=== PATIENT | female | born 1950 | race Caucasian/White ===

== ENCOUNTER 2024-05-16 09:46 | Outpatient (CLI) | payer MEDICARE, MEDICAID, SELFPAY ==
[2024-05-16 11:00] LABS: Alanine Aminotransferase 264 U/L (12-78); Albumin Level 3.5 g/dl (3.5-5.0); Albumin/Globulin Ratio 1.3 (1.1-1.8); Alkaline Phosphatase 338 U/L (38-126); Anion Gap 14.1 mEq/L (5-15); Aspartate Amino Transferase 180 U/L (14-36); Bilirubin,Total 0.5 mg/dl (0.2-1.3); Blood Urea Nitrogen 14 mg/dl (7-17); Calcium 9.4 mg/dl (8.4-10.2); Carbon Dioxide 28 mmol/L (22.0-30.0); Chloride 103 mmol/L (98-107); Estimated Glomerular Filt Rate 97 ml/min (>60); GFR (African American) 118 ML/MIN (>60); Globulin 2.6 g/dL (1.3-3.2); Glucose 233 mg/dl (74-100); Potassium 4.1 mmoL/L (3.5-5.1); Sodium 141 mmol/L (136-145); Total Protein,Serum 6.1 g/dl (6.3-8.2)
== END 2024-05-16 23:59 | disposition home or self-care (01) ==
LOC: LAB.DROPOF 09:49
PROVIDERS: PCP Internal Medicine; Visit Provider Family Medicine
DX: E11.9 Type 2 diabetes mellitus without complications (principal)
CPT/HCPCS: 80053

== ENCOUNTER 2024-05-30 08:32 | Outpatient (CLI) | payer MEDICARE, MEDICAID, SELFPAY ==
--- NOTE | 2024-05-30 08:45 | US_ITS ---
FINAL REPORT TECHNIQUE: Sonographic images of the right upper quadrant were obtained. CLINICAL HISTORY: abnormal lab COMPARISON: None FINDINGS: PANCREAS: Unremarkable. LIVER: Homogeneous. No focal hepatic lesion. No intrahepatic biliary ductal dilatation. GALLBLADDER: Multiple gallstones are noted. There is gallbladder wall thickening, measuring 5 mm, and cholecystitis is not excluded.. COMMON DUCT: 3 mm. Normal for age. RIGHT KIDNEY: The right kidney measures 9.75 cm. There is no hydronephrosis, mass, or stone. FREE FLUID: None. IMPRESSION: Multiple gallstones are present in the gallbladder with mild gallbladder wall thickening, and cholecystitis is not excluded. No biliary ductal dilatation is present. Reviewed, Interpreted and Dictated by Jordyn Rogers MD Transcribed by Sandra Calderon Authenticated and [facility]
== END 2024-05-30 23:59 | disposition home or self-care (01) ==
LOC: RAD 08:34
PROVIDERS: PCP Family Medicine; Visit Provider Family Medicine
DX: R89.9 Unspecified abnormal finding in specimens from other organs, systems and tissues (principal); K80.20 Calculus of gallbladder without cholecystitis without obstruction
CPT/HCPCS: 76705

== ENCOUNTER 2024-08-22 15:15 | Outpatient (CLI) | payer MEDICARE, MEDICAID, SELFPAY ==
[2024-08-22 15:46] LABS: Basophils # 0.1 K/mm3 (0-0.2); Basophils % 1.5 % (0.1-2.0); Eosinophils # 0.4 K/mm3 (0.0-0.4); Eosinophils % 5.2 % (0.1-12.0); Hematocrit 39.4 % (37.0-47.0); Hemoglobin 12.7 g/dL (12.2-16.2); Lymphocytes % 12.7 % (10-50); Mean Corpuscular HGB Conc 32.3 g/dL (31.8-35.4); Mean Corpuscular Hemoglobin 31.5 pg (27.0-31.2); Mean Corpuscular Volume 97.5 fl (81-99); Monocytes # 0.5 K/mm3 (0.1-1.0); Monocytes % 5.8 % (1.7-9.3); Neutrophils # 5.7 K/mm3 (1.8-7.8); Neutrophils % 74.8 % (37.0-80.0); Platelet Count 215 K/mm3 (142-424); Red Blood Count 4.04 M/mm3 (4.20-5.40); Red Cell Distribution Width 15.3 % (11.5-17.5); White Blood Count 7.6 K/mm3 (4.8-10.8)
== END 2024-08-22 23:59 | disposition home or self-care (01) ==
LOC: LAB.DROPOF 15:16
PROVIDERS: PCP Family Medicine; Visit Provider Family Medicine
DX: R62.7 Adult failure to thrive (principal); E11.9 Type 2 diabetes mellitus without complications; J44.9 Chronic obstructive pulmonary disease, unspecified
CPT/HCPCS: 85025

== ENCOUNTER 2024-08-26 01:33 | Emergency (ER) | payer MEDICARE, SELFPAY ==
[2024-08-26 01:33] VITALS: BP 149/76; PULSE 68; RESP 18; TEMP 37.3; O2SAT 97; BMI 23.0
[2024-08-26 01:53] LABS: Basophils % 0.6 % (0.1-2.0); Eosinophils # 0.3 K/mm3 (0.0-0.4); Eosinophils % 4.8 % (0.1-12.0); Hematocrit 35.1 % (37.0-47.0); Hemoglobin 11.8 g/dL (12.2-16.2); Lymphocytes # 1.2 K/mm3 (0.7-4.5); Lymphocytes % 18.1 % (10-50); Mean Corpuscular HGB Conc 33.5 g/dL (31.8-35.4); Mean Corpuscular Hemoglobin 31.2 pg (27.0-31.2); Mean Platelet Volume 8.7 fl (7.4-10.4); Monocytes # 0.3 K/mm3 (0.1-1.0); Monocytes % 5.1 % (1.7-9.3); Neutrophils # 4.7 K/mm3 (1.8-7.8); Neutrophils % 71.3 % (37.0-80.0); Platelet Count 189 K/mm3 (142-424); Red Blood Count 3.77 M/mm3 (4.20-5.40); White Blood Count 6.5 K/mm3 (4.8-10.8)
[2024-08-26 02:00] VITALS: PULSE 65; O2SAT 98
[2024-08-26 02:02] LABS: Albumin Level 3.9 g/dl (3.5-5.0); Chloride 103 mmol/L (98-107); Sodium 138 mmol/L (136-145)
[2024-08-26 02:04] LABS: Activated Partial Thrombo Time 25.9 seconds (22.8-30.6); Blood Urea Nitrogen 16 mg/dl (7-17); Creatinine Clearance Estimated 45 mL/min (50-200); Estimated Glomerular Filt Rate 97 ml/min (>60); GFR (African American) 118 ML/MIN (>60); INR 0.97 (0.9-1.1); Prothrombin Time 10.9 seconds (10.1-12.5)
[2024-08-26] MEDS: ACETAMINOPHEN 500MG TAB 1000 MG PO (02:04)
[2024-08-26 02:05] LABS: Alanine Aminotransferase 33 U/L (12-78); Albumin/Globulin Ratio 1.2 (1.1-1.8); Alkaline Phosphatase 111 U/L (38-126); Aspartate Amino Transferase 33 U/L (14-36); Bilirubin,Total 0.5 mg/dl (0.2-1.3); Calcium 9.8 mg/dl (8.4-10.2); Carbon Dioxide 31 mmol/L (22.0-30.0); Globulin 3.2 g/dL (1.3-3.2); Glucose 307 mg/dl (74-100); Total Protein,Serum 7.1 g/dl (6.3-8.2)
[2024-08-26] MEDS: IPRATROPIUM/ALBUTEROL 3 ML NEB IH (02:18)
[2024-08-26 02:19] VITALS: PULSE 68
--- NOTE | 2024-08-26 03:04 | PC.NURSE ---
called report to [facility] nurse and informed them that pt would be transferred back to them
[2024-08-26 03:10] VITALS: BP 124/43; PULSE 66; O2SAT 98
--- NOTE | 2024-08-26 03:15 | HMH.EDGENADL ---
Discharge Plan Disposition Patient Disposition: Xfer [facility] Prescriptions Prescriptions: No Action donepezil 10 mg tablet 10 mg PO HS acetaminophen 325 mg tablet 650 mg PO Q6H PRN (Reason: fever or pain) albuterol sulfate 90 mcg/actuation HFA aerosol inhaler 2 puff inhalation Q4H PRN (Reason: shortness of breath or wheezing) atorvastatin 80 mg tablet 80 mg PO DAILY cholecalciferol (vitamin D3) 50 mcg (2,000 unit) capsule 50 mcg PO DAILY ezetimibe 10 mg tablet 10 mg PO DAILY fluoxetine 40 mg capsule 40 mg PO DAILY nicotine 14 mg/24 hr patch 24 hour 1 patch transdermal Q24H olanzapine 15 mg tablet 15 mg PO HS omeprazole 40 mg capsule,delayed release(DR/EC) 40 mg PO DAILY polyethylene glycol 3350 17 gram/dose powder 17 g PO DAILY ropinirole 0.25 mg tablet 0.25 mg PO BID Tradjenta 5 mg tablet 5 mg PO DAILY Qty: 90 3RF ferrous sulfate 325 mg (65 mg iron) tablet 325 mg PO BID Qty: 180 3RF gabapentin 300 mg capsule 300 mg PO TID Qty: 90 5RF Trelegy Ellipta 100-62.5-25 mcg blister with device 1 inh inhalation DAILY Qty: 60 11RF insulin glargine [Basaglar KwikPen U-100 Insulin] 100 unit/mL (3 mL) insulin pen 45 unit SQ HS insulin aspart U-100 100 unit/mL (3 mL) insulin pen 1 sliding scale dose SQ USEASDIRECTD Qty: 15 2RF Rx Instructions: high intensity SSI TID Tradjenta 5 mg tablet 5 mg PO DAILY Qty: 30 2RF Referrals Follow up/Referrals: Provider,Referral, MD [Primary Care Provider] - See instructions Activity Restrictions/Add. Instructions Additional Instructions/Restrictions: You were evaluated in the ER and are appropriate for discharge at this time. Continue twice daily dressing changes. Nonstick dressing should be used. Moisturizing dressing such as Adaptic can also be used. Follow-up with your oncology team at as scheduled. Return to the ER with new, worsening, or otherwise concerning symptoms. Clinical Impressions Clinical Impression: Hemorrhage of skin lesion Print Language Print Language: Stateless Discharge ED Provider: Souleymane Bhardwaj Adult [facility] General Chief complaint: Eye Problems Stated complaint: skin cancer, bleeding from face Time Seen by Provider: 08/26/24 01:37 Mode of Arrival: Ambulatory Source of Information: Patient Limitations: No Limitations Description of Symptoms (Recalled from ER Triage Doc. by RN): Pt to ED from [facility] with [facility] for bleeding from cancerous area to left eye. pt reports it started bleeding yesterday morning but stopped. [facility] reports it has been bleeding for about an hour and they haven't been able to get it under control. History of Present Illness HPI narrative: 74-year-old female presents from nursing facility with EMS for concerns of bleeding from cancerous lesion on the left side of the face. Patient reports she has been dealing with this lesion for multiple months and has follow-up with . Patient reports she had some bleeding yesterday morning but it stopped, nursing facility reports that it started bleeding again this evening and despite applying a dressing they did not believe the bleeding was under control so patient was sent to the ER for evaluation. Patient states the bleeding has stopped. She is not having new pain at the site. She states her symptoms from the lesion have been stable. She does states she has been having mild headache on and off for weeks that has been controlled with Tylenol. Review of records at including recent MRI demonstrates no evident intracranial invasion from the lesion. Patient has no nausea, vomiting, numbness, tingling, or weakness. Related Data Home Medications ?Medication ?Instructions ?Recorded ?Confirmed acetaminophen 325 mg tablet 650 mg PO Q6H PRN fever or pain 05/09/24 07/19/24 albuterol sulfate 90 mcg/actuation 2 puff inhalation Q4H PRN 05/09/24 07/19/24 aerosol inhaler shortness of breath or wheezing atorvastatin 80 mg tablet 80 mg PO DAILY 05/09/24 07/19/24 cholecalciferol (vitamin D3) 50 50 mcg PO DAILY 05/09/24 07/19/24 mcg (2,000 unit) capsule ezetimibe 10 mg tablet 10 mg PO DAILY 05/09/24 07/19/24 fluoxetine 40 mg capsule 40 mg PO DAILY 05/09/24 07/19/24 nicotine 14 mg/24 hr daily 1 patch transdermal Q24H 05/09/24 07/19/24 transdermal patch olanzapine 15 mg tablet 15 mg PO HS 05/09/24 07/19/24 omeprazole 40 mg capsule,delayed 40 mg PO DAILY 05/09/24 07/19/24 release polyethylene glycol 3350 17 17 g PO DAILY 05/09/24 07/19/24 gram/dose oral powder ropinirole 0.25 mg tablet 0.25 mg PO BID 05/09/24 07/19/24 donepezil 10 mg tablet 10 mg PO HS 06/13/24 07/19/24 insulin glargine 100 unit/mL (3 45 unit SQ HS 08/14/24 mL) subcutaneous pen (Basaglar KwikPen U-100 Insulin) Previous Rx's ?Medication ?Instructions ?Recorded ferrous sulfate 325 mg (65 mg 325 mg PO BID #180 tabs 05/15/24 iron) tablet linagliptin 5 mg tablet (Tradjenta) 5 mg PO DAILY #90 tabs 05/15/24 gabapentin 300 mg capsule 300 mg PO TID #90 caps 05/29/24 fluticasone fur. 100 mcg-umeclid 1 inh inhalation DAILY #60 ea 06/26/24 62.5 mcg-vilant 25 mcg inhalat.powder (Trelegy Ellipta) insulin aspart U-100 100 unit/mL 1 sliding scale dose SQ 08/14/24 (3 mL) subcutaneous pen USEASDIRECTD #15 mL linagliptin 5 mg tablet (Tradjenta) 5 mg PO DAILY #30 tabs 08/22/24 Allergies Allergy/AdvReac Type Severity Reaction Status Date / Time metformin Allergy Unknown Uncoded 06/13/24 11:14 [facility] Disclaimer: The information contained in this section may have been updated after the patient was seen, as this information can be updated by other users. Medical History (Updated 08/26/24 @ 03:15 by Souleymane Bhardwaj MD) Squamous cell carcinoma Diabetes Nicotine dependence Vitamin D deficiency Osteoporosis Restless leg syndrome Hepatitis B Alcohol dependence Depression Anxiety PTSD (post-traumatic stress disorder) Schizophrenia GERD (gastroesophageal reflux disease) COPD (chronic obstructive pulmonary disease) Skin cancer of face Suicidal ideations Acute encephalopathy Surgical History Hx of tubal ligation Social History (Updated 06/13/24 @ 11:17 by JOSELINE Alfaro) Smoking Status: Unknown if ever smoked alcohol intake: former current occupational status: unemployed Travel in the last 8 weeks: None Other Medical History Have you received the Pneumonia Vaccine: Yes ROS Obtained: Yes All systems reviewed & no additional complaints except as documented Positive ROS per HPI Physical Exam General General appearance: alert and in no apparent distress Head Head exam: atraumatic Eye Eye exam: Present other (Large left-sided facial lesion obscures left eye, right eye has normal extraocular movements and round, reactive right pupil) ENT ENT exam: Present mucous membranes moist and other (Normal oropharynx without findings of intraoral lesion or injury. Patient has large fungating mass on the left side of the nose and face obscuring the left eye. No vision out of the left eye. No active bleeding) Neck Neck exam: Present normal inspection and full ROM Chest Chest inspection: Present symmetric chest wall rise Respiratory Respiratory exam: Present wheezes (Mild diffuse wheezing but good air movement, patient does have a history of COPD); Absent respiratory distress or stridor Cardiovascular Cardiovascular exam: Present regular rate and normal rhythm Abdominal Exam Abdominal exam: Present soft; Absent distention or tenderness Extremities Exam Extremities exam: Present full ROM Neurological Exam Neurological exam: Present alert and oriented X3; Absent motor sensory deficit Psychiatric Psychiatric exam: Present normal affect and normal mood Skin Skin exam: Present warm and dry Medical Decision Making Medical Records Medical records reviewed: Yes I reviewed the patient's medical records. Screening: Per USPSTF and CDC recommendations, given the prevalence of disease in our region, it is our hospital?s policy to screen for HIV and viral Hepatitis for all patients aged 18 and over and those with ongoing risk factors. MR Comment: See HPI Syd Inquiry Pt receiving controlled substance: No Vital Signs: 08/26/24 01:33 08/26/24 02:00 08/26/24 02:19 Temperature 99.1 F Temperature Source Oral Pulse Rate 65 68 Pulse Rate [Right Radial] 68 Respiratory Rate 18 Blood Pressure Blood Pressure [Left Arm] 149/76 H Blood Pressure Mean Blood Pressure Mean [Left Arm] 100 Blood Pressure Source [Left Arm] Automatic Cuff Blood Pressure Position [Left Arm] Sitting 02 Sat by Pulse Oximetry 97 98 Oxygen Delivery Method Room Air 08/26/24 03:10 Temperature Temperature Source Pulse Rate 66 Pulse Rate [Right Radial] Respiratory Rate Blood Pressure 124/43 L Blood Pressure [Left Arm] Blood Pressure Mean 81 Blood Pressure Mean [Left Arm] Blood Pressure Source [Left Arm] Blood Pressure Position [Left Arm] 02 Sat by Pulse Oximetry 98 Oxygen Delivery Method Lab Data Lab Results 08/26/24 01:45: WBC 6.5, RBC 3.77 L, Hgb 11.8 L, Hct 35.1 L, MCV 93.0, MCH 31.2, MCHC 33.5, RDW 15.0, Plt Count 189, MPV 8.7, Neut % (Auto) 71.3, Lymph % (Auto) 18.1, Carbon % (Auto) 5.1, Eos % (Auto) 4.8, Baso % (Auto) 0.6, Neut # (Auto) 4.7, Lymph # (Auto) 1.2, Carbon # (Auto) 0.3, Eos # (Auto) 0.3, Baso # (Auto) 0.0, PT 10.9, INR 0.97, APTT 25.9, Sodium 138, Potassium 4.0, Chloride 103, Carbon Dioxide 31 H, Anion Gap 8.0, BUN 16, Creatinine 0.60, Estimated Creat Clear 45, Estimated GFR 97, Est GFR ( Amer) 118, Glucose 307 H, Calcium 9.8, Total Bilirubin 0.5, AST 33, ALT 33, Alkaline Phosphatase 111, Total Protein 7.1, Albumin 3.9, Globulin 3.2, Albumin/Globulin Ratio 1.2 08/26/24 01:45 08/26/24 01:45 Orders (Tests/Meds): ED MEDICATIONS Discontinued Medications Generic Name Dose Route Start Last Admin Trade Name Danoq PRN Reason Stop Dose Admin Acetaminophen 1,000 mg 08/26/24 01:49 08/26/24 02:04 Acetaminophen 500mg Tab PO 08/26/24 01:50 1,000 mg ONCE ONE Administration Albuterol/Ipratropium 3 ml 08/26/24 01:50 08/26/24 02:18 Ipratropium/Albuterol 3 Ml Neb IH 08/26/24 01:51 3 ml ONCE ONE Administration ORDERS Category Date Time Status CBC w/Auto Diff [Complete Blood Count Auto Diff] Stat Lab 08/26/24 01:45 Completed CMP [Comprehensive Metabolic Panel] Stat Lab 08/26/24 01:45 Completed HIV (1&2) Antibody Rapid Stat Lab 08/26/24 01:45 Received Hep C Ab with Reflex to RNA Stat Lab 08/26/24 01:45 Received PT INR [Prothrombin Time INR] Stat Lab 08/26/24 01:45 Completed PTT [Activated Partial Thrombo Time] Stat Lab 08/26/24 01:45 Completed Medical Decision Narrative: In summary, this 74-year-old presents to the emergency department today with concerns of bleeding from left face cancer. On initial evaluation patient is hemodynamically stable, afebrile, patient has fungating mass of the left face that is not actively bleeding. I applied a clean dressing with Adaptic, nonstick gauze, and Tegaderm. Patient has no neurologic deficits though she does states she has mild headache at this time that has previously been controlled by Tylenol which she has not recently received. Differential diagnosis includes but is not limited to coagulopathy, anemia, bleeding from cancerous wound, with headache I did consider possibility of intracranial invasion however recent MRI from did not demonstrate this. Mom also reassured that patient has no neurologic deficit and close follow-up with her oncology team. Based on these concerns, I ordered basic labs to assess blood count and coagulopathy. Patient received Tylenol. Labs reviewed demonstrate no leukocytosis, slight anemia with hemoglobin 11.8, slight decrease from a few days ago but not profound and patient is asymptomatic with no active bleeding. PT/INR and APTT normal, platelets normal at 189, CMP nonactionable. Patient received DuoNeb for wheezing and continues to have no respiratory distress, resting comfortably on room air. On reassessment after applying dressing to wound, patient has had no recurrence of bleeding, she continues to be stable. Her headache is gone. She is appropriate for discharge at this time. She has follow-up with her oncologist at the end of this month including a planned operation which I was able to see in her records. Patient and senior living were given explicit instructions on continued lesion management, follow-up, and return precautions for the ER. Patient indicated understanding and was discharged in stable condition. Critical Care Critical Care Time Critical Care Time: No
[2024-08-26 03:58] VITALS: BP 128/72; PULSE 72; RESP 16; TEMP 36.6; O2SAT 100
[2024-08-26 03:59] LABS: HIV (1&2) Antibody Rapid NONREACTIVE (NONREACTIVE)
[2024-08-28 05:09] LABS: HCV Ab Non Reactive (Non Reactive)
== END 2024-08-26 04:00 ==
PROVIDERS: Emergency Provider Emergency Medicine
DX: R23.3 Spontaneous ecchymoses (principal); R58 Hemorrhage, not elsewhere classified
CPT/HCPCS: 80053; 85025; 85610; 85730; 86803; 87389; 99282; J7620

== ENCOUNTER 2024-08-28 14:10 | Day surgery (SDC) | payer MEDICARE, SELFPAY ==
[2024-08-28] VITALS (9 sets, daily range): BP systolic 110–149; BP diastolic 53–72; PULSE 60–68; RESP 13–20; TEMP 36.6–36.9; O2SAT 97–100; BMI 20.7; BMI 20.9
[2024-08-28] MEDS: SILVER NITRATE APPLICATOR 2 EACH TP (14:22)
--- NOTE | 2024-08-28 14:27 | ED_ITS ---
<Statement entered by Augusto Drummond MD - 08/28/24 14:46> I was consulted by the CORNELIA, and we discussed the complexity of the problems being addressed. I approved the treatment and management plan for this patient's care in the emergency department, thus performing a substantive portion of the medical decision making. Augusto Drummond MD, MARGARET, FACEP Discharge Plan Disposition Patient Disposition: Admitted Condition: Serious Prescriptions Prescriptions: No Action donepezil 10 mg tablet 10 mg PO HS acetaminophen 325 mg tablet 650 mg PO Q6H PRN (Reason: fever or pain) albuterol sulfate 90 mcg/actuation HFA aerosol inhaler 2 puff inhalation Q4H PRN (Reason: shortness of breath or wheezing) atorvastatin 80 mg tablet 80 mg PO DAILY cholecalciferol (vitamin D3) 50 mcg (2,000 unit) capsule 50 mcg PO DAILY ezetimibe 10 mg tablet 10 mg PO DAILY fluoxetine 40 mg capsule 40 mg PO DAILY nicotine 14 mg/24 hr patch 24 hour 1 patch transdermal Q24H olanzapine 15 mg tablet 15 mg PO HS omeprazole 40 mg capsule,delayed release(DR/EC) 40 mg PO DAILY polyethylene glycol 3350 17 gram/dose powder 17 g PO DAILY ropinirole 0.25 mg tablet 0.25 mg PO BID Tradjenta 5 mg tablet 5 mg PO DAILY Qty: 90 3RF ferrous sulfate 325 mg (65 mg iron) tablet 325 mg PO BID Qty: 180 3RF gabapentin 300 mg capsule 300 mg PO TID Qty: 90 5RF Trelegy Ellipta 100-62.5-25 mcg blister with device 1 inh inhalation DAILY Qty: 60 11RF insulin glargine [Basaglar KwikPen U-100 Insulin] 100 unit/mL (3 mL) insulin pen 45 unit SQ HS insulin aspart U-100 100 unit/mL (3 mL) insulin pen 1 sliding scale dose SQ USEASDIRECTD Qty: 15 2RF Rx Instructions: high intensity SSI TID Tradjenta 5 mg tablet 5 mg PO DAILY Qty: 30 2RF Referrals Follow up/Referrals: Provider,Referral, [Primary Care Provider] - See instructions Clinical Impressions Clinical Impression: Esophageal obstruction due to food impaction Instructions Patient Instructions: DI for Skin Abscess Print Language Print Language: Indonesian Discharge ED Provider: Augusto Drummond General Adult HPI General Chief complaint: Skin/Abscess/Foreign Body Stated complaint: WOUND Time Seen by Provider: 08/28/24 14:27 History of Present Illness HPI narrative: Patient presented initially from [facility] for uncontrollable bleeding from a squamous cell carcinoma mass on her face. Patient has a history of squamous cell carcinoma that is metastatic to multiple sites in the body the exact details of which I do not have at the time of my exam. She has been evaluated and is scheduled for surgery at the [facility] at the later end of this month. She began bleeding from the mass this afternoon and they were unable to control it with direct pressure so she was sent to the ER for evaluation. She denies chest pain of cardiac nature fever chills hemoptysis hematochezia melena or hematemesis but does report a bolus sensation and the inability to swallow. She feels like something is stuck. Patient states that this has happened before and they had to go down and get it . She has had this sensation since approximately lunchtime today but did not notify anybody till she arrived here. Related Data Home Medications ?Medication ?Instructions ?Recorded ?Confirmed acetaminophen 325 mg tablet 650 mg PO Q6H PRN fever or pain 05/09/24 07/19/24 albuterol sulfate 90 mcg/actuation 2 puff inhalation Q4H PRN 05/09/24 07/19/24 aerosol inhaler shortness of breath or wheezing atorvastatin 80 mg tablet 80 mg PO DAILY 05/09/24 07/19/24 cholecalciferol (vitamin D3) 50 50 mcg PO DAILY 05/09/24 07/19/24 mcg (2,000 unit) capsule ezetimibe 10 mg tablet 10 mg PO DAILY 05/09/24 07/19/24 fluoxetine 40 mg capsule 40 mg PO DAILY 05/09/24 07/19/24 nicotine 14 mg/24 hr daily 1 patch transdermal Q24H 05/09/24 07/19/24 transdermal patch olanzapine 15 mg tablet 15 mg PO HS 05/09/24 07/19/24 omeprazole 40 mg capsule,delayed 40 mg PO DAILY 05/09/24 07/19/24 release polyethylene glycol 3350 17 17 g PO DAILY 05/09/24 07/19/24 gram/dose oral powder ropinirole 0.25 mg tablet 0.25 mg PO BID 05/09/24 07/19/24 donepezil 10 mg tablet 10 mg PO HS 06/13/24 07/19/24 insulin glargine 100 unit/mL (3 45 unit SQ HS 08/14/24 mL) subcutaneous pen (Basaglar KwikPen U-100 Insulin) Previous Rx's ?Medication ?Instructions ?Recorded ferrous sulfate 325 mg (65 mg 325 mg PO BID #180 tabs 05/15/24 iron) tablet linagliptin 5 mg tablet (Tradjenta) 5 mg PO DAILY #90 tabs 05/15/24 gabapentin 300 mg capsule 300 mg PO TID #90 caps 05/29/24 fluticasone fur. 100 mcg-umeclid 1 inh inhalation DAILY #60 ea 06/26/24 62.5 mcg-vilant 25 mcg inhalat.powder (Trelegy Ellipta) insulin aspart U-100 100 unit/mL 1 sliding scale dose SQ 08/14/24 (3 mL) subcutaneous pen USEASDIRECTD #15 mL linagliptin 5 mg tablet (Tradjenta) 5 mg PO DAILY #30 tabs 08/22/24 Allergies Allergy/AdvReac Type Severity Reaction Status Date / Time metformin Allergy Unknown Uncoded 06/13/24 11:14 [facility] Disclaimer: The information contained in this section may have been updated after the patient was seen, as this information can be updated by other users. Medical History (Updated 08/28/24 @ 14:41 by NATHALY Scales) Squamous cell carcinoma Diabetes Nicotine dependence Vitamin D deficiency Osteoporosis Restless leg syndrome Hepatitis B Alcohol dependence Depression Anxiety PTSD (post-traumatic stress disorder) Schizophrenia GERD (gastroesophageal reflux disease) COPD (chronic obstructive pulmonary disease) Skin cancer of face Suicidal ideations Acute encephalopathy Surgical History Hx of tubal ligation Social History (Updated 06/13/24 @ 11:17 by Makenzie Coffey, SRNA) Smoking Status: Never smoker alcohol intake: former current occupational status: unemployed Travel in the last 8 weeks: None Other Medical History Have you received the Pneumonia Vaccine: Yes ROS Obtained: Yes Systems reviewed as appropriate & no additional complaints except as documented Physical Exam General General appearance: alert and in no apparent distress Respiratory Respiratory exam: Present normal lung sounds bilaterally Cardiovascular Cardiovascular exam: Present regular rate Neurological Exam Neurological exam: Present alert and oriented X3 Medical Decision Making Medical Records Medical records reviewed: Yes I reviewed the patient's medical records. Screening: Per USPSTF and CDC recommendations, given the prevalence of disease in our [place], it is our hospital?s policy to screen for HIV and viral Hepatitis for all patients aged 18 and over and those with ongoing risk factors. Syd Inquiry Pt receiving controlled substance: No Vital Signs: 08/28/24 14:10 Temperature 98.2 F Temperature Source Oral Pulse Rate [Right] 64 Respiratory Rate 20 Blood Pressure [Right Arm] 149/70 H Blood Pressure Mean [Right Arm] 96 Blood Pressure Source [Right Arm] Automatic Cuff 02 Sat by Pulse Oximetry 100 Oxygen Delivery Method Room Air Lab Data Lab results reviewed: Yes I reviewed the patient's lab results. Orders (Tests/Meds): ED MEDICATIONS Discontinued Medications Generic Name Dose Route Start Last Admin Trade Name Freq PRN Reason Stop Dose Admin Silver Nitrate 2 each 08/28/24 14:16 08/28/24 14:22 Silver Nitrate Applicator TP 08/28/24 14:17 2 each ONCE ONE Administration Medical Decision Narrative: In summary patient is a 74-year-old female who presents to the emergency department for evaluation of uncontrolled hemorrhage from a fungating mass to the face and a food bolus sensation. Patient is hemodynamically stable upon arrival, afebrile. Physical exam is remarkable for a very large fungating mass occupying nearly the entirety of the left side of her upper face around the cheek including masslike effect on her pushing her closed but not actually visibly invading the orbit, lateral border is the lateral epicanthal fold, lower border is the nasolabial fold, and upon takedown of dressing applied shows that there is a single bleeding vessel at approximately the 12 o'clock position of the mass. It was easily controlled with light finger pressure however upon removal continues to bleed. Patient also has a bolus sensation but no abdominal tenderness normal breath sounds no epigastric tenderness. Differential diagnosis includes neoplastic hemorrhage versus food bolus versus arterial bleed etc. Initial workup was considered however patient is hemodynamically stable and bleeding was easily controlled with fingertip pressure and patient's vital signs are stable and no red flags for life-threatening hemorrhage, additionally patient was challenged with sips of water which she was intolerant of thus further workup of the food bolus is deferred and lieu of contacting GI. Initial intervention was silver nitrate sticks initially to chemically cauterize and then overlaying with Surgicel for the fungating mass. After hemostatic control was obtained I had interactive discussion with Dr. Rivera of gastroenterology about patient management and he will be taken the patient to the operating room for emergent endoscopy for food impaction. Critical Care Critical Care Time Critical Care Time: No
--- NOTE | 2024-08-28 14:59 | PC.NURSE ---
REPORT GIVEN TO ANTHONY BROUSSARD AND MAY RN
--- NOTE | 2024-08-28 15:07 | EXP.ANES.CKL ---
[facility] Disclaimer: The information contained in this section may have been updated after the patient was seen, as this information can be updated by other users. Medical History Squamous cell carcinoma Diabetes Nicotine dependence Vitamin D deficiency Osteoporosis Restless leg syndrome Hepatitis B Alcohol dependence Depression Anxiety PTSD (post-traumatic stress disorder) Schizophrenia GERD (gastroesophageal reflux disease) COPD (chronic obstructive pulmonary disease) Skin cancer of face Suicidal ideations Acute encephalopathy Surgical History Hx of tubal ligation Social History Smoking Status: Never smoker alcohol intake: former substance use type: denies use current occupational status: unemployed Travel in the last 8 weeks: None [facility] Anesthesia Checklist Patient Identification Patient Identification: Arm Band and Verbal (Name & ) Structural Data Admitted From: Emergency Dept Planned Operative Procedure/s: EGD Consent for Planned Operative Procedure(s) Verified: Yes Verified Documents: Surgical Consent and History and Physical NPO Status Verified Time NPO: 12:00 Additional verifications Anesthesia Reactions: No Airway Assessment Mallampati Score:: Class IV C-Spine Mobility Assessed: Yes TMJ Mobility Assessed: Yes Dentition: Edentulous Neurological Assessment Level of Consciousness: Awake Hx Seizures: No Numbness or tingling in extremities: No Anesthesia Plan Anesthesia Risk discussed: Yes Anesthesia Plan: Verified ASA Class: IV (E) Anesthesia Type: MAC
[2024-08-28 15:09] LABS: Chloride 107 mmol/L (98-107); Sodium 141 mmol/L (136-145)
[2024-08-28 15:12] LABS: Alanine Aminotransferase 26 U/L (12-78); Albumin/Globulin Ratio 1.3 (1.1-1.8); Alkaline Phosphatase 110 U/L (38-126); Aspartate Amino Transferase 31 U/L (14-36); Basophils # 0.1 K/mm3 (0-0.2); Bilirubin,Total 0.4 mg/dl (0.2-1.3); Blood Urea Nitrogen 18 mg/dl (7-17); Calcium 9.5 mg/dl (8.4-10.2); Carbon Dioxide 29 mmol/L (22.0-30.0); Creatinine Clearance Estimated 43 mL/min (50-200); Eosinophils # 0.5 K/mm3 (0.0-0.4); Eosinophils % 6.4 % (0.1-12.0); Estimated Glomerular Filt Rate 97 ml/min (>60); GFR (African American) 118 ML/MIN (>60); Globulin 3.1 g/dL (1.3-3.2); Glucose 99 mg/dl (74-100); Hematocrit 35.4 % (37.0-47.0); Hemoglobin 12.1 g/dL (12.2-16.2); Lymphocytes # 0.9 K/mm3 (0.7-4.5); Lymphocytes % 12.6 % (10-50); Mean Corpuscular HGB Conc 34.2 g/dL (31.8-35.4); Mean Corpuscular Hemoglobin 31.1 pg (27.0-31.2); Mean Corpuscular Volume 90.9 fl (81-99); Mean Platelet Volume 7.9 fl (7.4-10.4); Monocytes # 0.4 K/mm3 (0.1-1.0); Monocytes % 5.2 % (1.7-9.3); Neutrophils # 5.4 K/mm3 (1.8-7.8); Neutrophils % 74.8 % (37.0-80.0); Platelet Count 230 K/mm3 (142-424); Red Cell Distribution Width 15.3 % (11.5-17.5); Total Protein,Serum 7.1 g/dl (6.3-8.2); White Blood Count 7.2 K/mm3 (4.8-10.8)
[2024-08-28 15:18] LABS: INR 0.97 (0.9-1.1); Prothrombin Time 10.9 seconds (10.1-12.5)
[2024-08-28 15:32] LABS: POC Glucose,Bedside 110 (70-110)
--- NOTE | 2024-08-28 15:45 | P.HP_ITS ---
History of Present Illness *Admission Date: 08/28/24 *Reason for visit:: Dysphagia *History of present illness: Mrs. Urban is a 74-year-old female who is here for dysphagia from the ER with food impaction. The examination is deemed medically necessary for EGD. The patient has been seen, interviewed and examined prior to the procedure by both myself and the anesthesia provider. [facility] Disclaimer: The information contained in this section may have been updated after the patient was seen, as this information can be updated by other users. Medical History Squamous cell carcinoma Diabetes Nicotine dependence Vitamin D deficiency Osteoporosis Restless leg syndrome Hepatitis B Alcohol dependence Depression Anxiety PTSD (post-traumatic stress disorder) Schizophrenia GERD (gastroesophageal reflux disease) COPD (chronic obstructive pulmonary disease) Skin cancer of face Suicidal ideations Acute encephalopathy Surgical History Hx of tubal ligation Social History (Updated 08/28/24 @ 15:09 by Brandy Demarco CRNA) Smoking Status: Never smoker alcohol intake: former substance use type: denies use current occupational status: unemployed Travel in the last 8 weeks: None Other Medical History Have you received the Pneumonia Vaccine: Yes Review of Systems Review of Systems Review of systems (narrative): Negative *Cardiovascular Comments: Negative *Gastrointestinal Comments: Negative *Genitourinary Comments: Negative *Musculoskeletal Comments: Negative *Neurologic Comments: Negative Meds Home Medications and Allergies Home Medications ?Medication ?Instructions ?Recorded ?Confirmed ?Type acetaminophen 325 mg tablet 650 mg PO Q6H PRN fever or pain 05/09/24 07/19/24 History albuterol sulfate 90 mcg/actuation 2 puff inhalation Q4H PRN 05/09/24 07/19/24 History aerosol inhaler shortness of breath or wheezing atorvastatin 80 mg tablet 80 mg PO DAILY 05/09/24 07/19/24 History cholecalciferol (vitamin D3) 50 50 mcg PO DAILY 05/09/24 07/19/24 History mcg (2,000 unit) capsule ezetimibe 10 mg tablet 10 mg PO DAILY 05/09/24 07/19/24 History fluoxetine 40 mg capsule 40 mg PO DAILY 05/09/24 07/19/24 History nicotine 14 mg/24 hr daily 1 patch transdermal Q24H 05/09/24 07/19/24 History transdermal patch olanzapine 15 mg tablet 15 mg PO HS 05/09/24 07/19/24 History omeprazole 40 mg capsule,delayed 40 mg PO DAILY 05/09/24 07/19/24 History release polyethylene glycol 3350 17 17 g PO DAILY 05/09/24 07/19/24 History gram/dose oral powder ropinirole 0.25 mg tablet 0.25 mg PO BID 05/09/24 07/19/24 History ferrous sulfate 325 mg (65 mg 325 mg PO BID #180 tabs 05/15/24 07/19/24 Rx iron) tablet linagliptin 5 mg tablet (Tradjenta) 5 mg PO DAILY #90 tabs 05/15/24 07/19/24 Rx gabapentin 300 mg capsule 300 mg PO TID #90 caps 05/29/24 07/19/24 Rx donepezil 10 mg tablet 10 mg PO HS 06/13/24 07/19/24 History fluticasone fur. 100 mcg-umeclid 1 inh inhalation DAILY #60 ea 06/26/24 07/19/24 Rx 62.5 mcg-vilant 25 mcg inhalat.powder (Trelegy Ellipta) insulin aspart U-100 100 unit/mL 1 sliding scale dose SQ 08/14/24 Rx (3 mL) subcutaneous pen USEASDIRECTD #15 mL insulin glargine 100 unit/mL (3 45 unit SQ HS 08/14/24 History mL) subcutaneous pen (Basaglar KwikPen U-100 Insulin) linagliptin 5 mg tablet (Tradjenta) 5 mg PO DAILY #30 tabs 08/22/24 Rx New Prescriptions to Start Prescriptions: Allergies Allergy/AdvReac Type Severity Reaction Status Date / Time metformin Allergy Unknown Uncoded 06/13/24 11:14 Exam Data for Last 24 hours Vital signs and Labs for Last 24 Hours: Temp Pulse Resp BP Pulse Ox O2 Del Method 98.2 F 60 18 140/70 100 Room Air 08/28/24 15:20 08/28/24 15:20 08/28/24 15:20 08/28/24 15:20 08/28/24 14:10 08/28/24 15:20 Laboratory Results - last 24 hr 08/28/24 14:46: WBC 7.2, RBC 3.90 L, Hgb 12.1 L, Hct 35.4 L, MCV 90.9, MCH 31.1, MCHC 34.2, RDW 15.3, Plt Count 230, MPV 7.9, Neut % (Auto) 74.8, Lymph % (Auto) 12.6, [place] % (Auto) 5.2, Eos % (Auto) 6.4, Baso % (Auto) 1.0, Neut # (Auto) 5.4, Lymph # (Auto) 0.9, [place] # (Auto) 0.4, Eos # (Auto) 0.5 H, Baso # (Auto) 0.1, PT 10.9, INR 0.97, Sodium 141, Potassium 4.0, Chloride 107, Carbon Dioxide 29, Anion Gap 9.0, BUN 18 H, Creatinine 0.60, Estimated Creat Clear 43, Estimated GFR 97, Est GFR ( Amer) 118, Glucose 99, Calcium 9.5, Total Bilirubin 0.4, AST 31, ALT 26, Alkaline Phosphatase 110, Total Protein 7.1, Albumin 4.0, Globulin 3.1, Albumin/Globulin Ratio 1.3 08/28/24 15:13: POC Glucose 110 I & O for Last 24 hours: Intake & Output 08/25/24 08/26/24 08/27/24 08/28/24 23:59 23:59 23:59 23:59 Weight 125 lb *Routine HEENT Exam Head: Present normocephalic Eye: Present EOMI and PERRL ENT: Present mucous membranes moist *Routine Neck Exam Neck: Present supple *Routine Respiratory Exam Respiratory: Present CTA bilaterally *Routine Cardiovascular Exam Cardiovascular: Present RRR *Routine Abdominal Exam Abdominal: Present soft and normoactive bowel sounds; Absent tenderness *Routine Rectal Exam Rectal:: deferred *Routine Genitalia Exam Genitalia:: deferred *Routine Extremities Exam Extremities: Absent cyanosis, clubbing or edema *Routine Skin Exam Skin: Present warm; Absent rash *Routine Neurological Exam Neurological: Present alert and oriented X3 Assessment and Plan *Assessment and plan (1) Food impaction of esophagus: Status: Acute Category: Medical Code(s): T18.128A - Food in esophagus causing other injury, initial encounter; [id number].F3XA - Food entering into or through a natural orifice, initial encounter (2) Dysphagia: Status: Acute Category: Medical Code(s): R13.10 - Dysphagia, unspecified Plan A/P: 1. Dysphagia/food impaction is the preprocedural diagnosis. The patient will be anesthetized/sedated using MAC sedation. The patient has been seen and examined. Cardiac and lung assessment prior to the examination is stable. Proceed with planned EGD
--- NOTE | 2024-08-28 15:53 | HMH.PROCNOTE ---
[facility] Procedure Note Date: 08/28/24 Time: 15:53 Procedure Note:: Upper Endoscopy Procedure Report: Esophagogastroduodenoscopy with TTS balloon dilation Endoscopost: Sheldon Rivera II, MD Referring Physician: Jean Marie Modi PA-C Date of Procedure: August 28, 2024 Equipment: Olympus GIF 190 standard upper endoscope Sedation: MAC sedation Indications: Mrs. Urban is a 74-year-old female with oozing and bleeding spontaneously from a squamous cell carcinoma on her face. This is metastatic to multiple sites in the body. She has been evaluated at the [facility]. The patient reports having inability to swallow and a bolus sensation as if something is stuck. The patient had been eating cantaloupe earlier and feels like this may have gotten lodged. The patient has had prior food impaction and had to have an EGD previously to dislodge or remove this. The patient was challenged in the emergency department with sips of water which she was intolerant to. The ER notified me for possible food impaction. The patient has had some dysphagia. She reports no chest pain. Procedure: Prior to the procedure, a history and physical exam was performed, and patient's medications and allergies were reviewed. The risks, benefits and alternatives of the sedation and procedure were discussed with the patient. All questions were answered and informed consent was obtained. The patient was brought to the procedure room. Patient identification and proposed procedure were verified by the physician and the nurse. The patient was placed in a left lateral decubitus position and the scope was passed under direct vision. Throughout the procedure, the patient's blood pressure, pulse, and oxygen saturations were monitored continuously. The upper GI endoscopy was accomplished without difficulty. The patient tolerated the procedure well. Findings: The scope was passed directly into the upper esophagus and advanced to the third portion of the duodenum. The post bulbar duodenum and duodenal bulb were normal with normal mucosa and conniventes. The scope was withdrawn through a normal duodenal bulb and pylorus into the stomach. There was some very mild reactive gastropathy of the antrum. There was some food content in the stomach. The remainder of the antrum, body and fundus of the stomach were grossly normal. Upon retroflexion there was a small 1 to 2 cm hiatal hernia. The scope was then withdrawn into the esophagus. There was a distal esophageal ring. There was no foreign body within the esophagus. There was no evidence of reflux esophagitis or Amaya's. The original diameter of this ring was approximately 13 mm. This was dilated up to 18 mm with a TTS hydrostatic balloon. There was shattering of the distal esophageal ring. The remainder of the esophageal mucosa was normal. Impression: 1. Distal esophageal ring/Schatzki's ring status post dilation to 18 mm (from original diameter 13 mm)?no food impaction encountered 2. Very small sliding 1 to 2 cm hiatal hernia Plan: The patient should have clinical improvement with dilation. I will discuss the findings with the patient and family.
--- NOTE | 2024-08-28 17:47 | SUR.PHASEII ---
Kaela Goel RN called report to Antoinette at [place]
== END 2024-08-28 17:46 | disposition home or self-care (01) ==
LOC: ER 15:07 → SDC 15:12
PROVIDERS: Physician Assistant; Emergency Provider Student in an Organized Health Care Education/Training Program; Visit Provider Internal Medicine Gastroenterology
PROC: 0DJ08ZZ Inspection of Upper Intestinal Tract, Via Natural or Artificial Opening Endoscopic (ICD-10-PCS; CPT 43235; principal; 2024-08-28 14:45)
DX: T18.128A Food in esophagus causing other injury, initial encounter (principal); R13.10 Dysphagia, unspecified; W44.F3XA Food entering into or through a natural orifice, initial encounter; E11.8 Type 2 diabetes mellitus with unspecified complications; Z79.84 Long term (current) use of oral hypoglycemic drugs; Z79.4 Long term (current) use of insulin; K31.9 Disease of stomach and duodenum, unspecified; K44.9 Diaphragmatic hernia without obstruction or gangrene; R58 Hemorrhage, not elsewhere classified
CPT/HCPCS: 43249; 80053; 82962; 85025; 85610; C1726; J0330

== ENCOUNTER 2024-10-22 13:10 | Outpatient (CLI) | payer MEDICARE, SELFPAY ==
--- NOTE | 2024-10-22 | CA_ITS ---
FINAL REPORT CLINICAL HISTORY: bilateral leg pain, COPD, DM, bilateral edema. FINDINGS: Color Doppler, duplex Doppler and compression sonography of the bilateral lower extremities was performed. There is no evidence of deep venous thrombosis from the level of the groin to the calf. The deep veins are patent and compressible. IMPRESSION: No evidence of deep venous thrombosis bilateral lower extremities. Reviewed, Interpreted and Dictated by Ti Miller III, MD Transcribed by Cammy Kidd Authenticated and [facility]
--- NOTE | 2024-10-22 13:19 | US_ITS ---
FINAL REPORT CLINICAL HISTORY: feet mottled and cool, DM, COPD, ex smoker, edema. Left thigh cuff not placed secondary to recent skin grafting on outer thigh < 3 weeks ago. FINDINGS: BILATERAL ANKLE BRACHIAL INDICES Pressure indices are as follows are: RIGHT LOWER EXTREMITY Ankle brachial pressure index: 1.2 Toe brachial pressure index: 0.8 COMMENTS: Normal LEFT LOWER EXTREMITY Ankle brachial pressure index: 1.2 Toe brachial pressure index: 0.8 COMMENTS: Normal IMPRESSION: No evidence of significant obstructive peripheral vascular disease of the lower extremities. Reviewed, Interpreted and Dictated by Ti Miller III, MD Transcribed by Cammy Kidd Authenticated and [facility]
== END 2024-10-22 23:59 | disposition home or self-care (01) ==
LOC: RT 13:11
PROVIDERS: PCP Family Medicine; Visit Provider Nurse Practitioner Family
DX: R60.1 Generalized edema (principal); R09.89 Other specified symptoms and signs involving the circulatory and respiratory systems; L81.9 Disorder of pigmentation, unspecified
CPT/HCPCS: 93923; 93970

== ENCOUNTER 2024-12-07 18:00 | Emergency (ER) | payer MEDICARE, SELFPAY ==
[2024-12-07] VITALS (8 sets, daily range): BP systolic 132–150; BP diastolic 57–98; PULSE 56–62; RESP 19–20; TEMP 36.8–37.3; O2SAT 93–96; BMI 24.0
--- NOTE | 2024-12-07 18:08 | ED_ITS ---
<Statement entered by Christina Aly DO - 12/07/24 23:10> I was consulted by the CORNELIA, and we discussed the complexity of the problems being addressed. I approved the treatment and management plan for this patient's care in the emergency department, thus performing a substantive portion of the medical decision making. Christina Aly DO Discharge Plan Disposition Patient Disposition: Xfer SNF Condition: Good Prescriptions Prescriptions: New nitrofurantoin monohyd/m-cryst 100 mg capsule 100 mg PO BID 5 Days Qty: 10 0RF Rx Instructions: must administer with a meal/food No Action donepezil 10 mg tablet 10 mg PO HS glucagon 1 mg recon soln 1 mg SQ Q20M PRN Rx Instructions: until target blood sugar attained tamsulosin 0.4 mg capsule 0.4 mg PO DAILY insulin aspart U-100 [Novolog FlexPen U-100 Insulin] 100 unit/mL (3 mL) insulin pen 1 sliding scale dose SQ TID dapagliflozin propanediol [Farxiga] 10 mg tablet 10 mg PO DAILY Qty: 90 3RF acetaminophen 325 mg tablet 650 mg PO Q6H PRN (Reason: fever or pain) albuterol sulfate 90 mcg/actuation HFA aerosol inhaler 2 puff inhalation Q4H PRN (Reason: shortness of breath or wheezing) atorvastatin 80 mg tablet 80 mg PO DAILY cholecalciferol (vitamin D3) 50 mcg (2,000 unit) capsule 50 mcg PO DAILY ezetimibe 10 mg tablet 10 mg PO DAILY fluoxetine 40 mg capsule 40 mg PO DAILY olanzapine 15 mg tablet 15 mg PO HS omeprazole 40 mg capsule,delayed release(DR/EC) 40 mg PO DAILY polyethylene glycol 3350 17 gram/dose powder 17 g PO DAILY ropinirole 0.25 mg tablet 0.25 mg PO BID ferrous sulfate 325 mg (65 mg iron) tablet 325 mg PO BID Qty: 180 3RF Trelegy Ellipta 100-62.5-25 mcg blister with device 1 inh inhalation DAILY Qty: 60 11RF Tradjenta 5 mg tablet 5 mg PO DAILY Qty: 30 2RF gabapentin 300 mg capsule 300 mg PO TID Qty: 90 5RF insulin glargine [Basaglar KwikPen U-100 Insulin] 100 unit/mL (3 mL) insulin pen 50 unit SQ HS Referrals Follow up/Referrals: Provider,Referral, MD [Primary Care Provider] - See instructions Activity Restrictions/Add. Instructions Additional Instructions/Restrictions: You may do weightbearing as tolerated. Follow-up with your PCP next week for recheck. I have sent a prescription for your urinary tract infection to your pharmacy. Please take till it is gone. Return to the ER for any worsening signs or symptoms as needed. Clinical Impressions Clinical Impression: Closed sacral fracture Qualifiers: Encounter type: initial encounter Zone of sacrum fracture: unspecified portion of sacrum Qualified Code(s): S32.10XA - Unspecified fracture of sacrum, initial encounter for closed fracture Urinary tract infection Qualifiers: Urinary tract infection type: site unspecified Hematuria presence: with hematuria Qualified Code(s): N39.0 - Urinary tract infection, site not specified Print Language Print Language: Cuban Discharge ED Provider: Christina Aly General Adult HPI General Chief complaint: Fall Stated complaint: Fall, hit head and low back, No LOC Time Seen by Provider: 12/07/24 18:08 History of Present Illness HPI narrative: Patient presents for evaluation of a fall. Patient reportedly had a fall that was witnessed in front of a nurse. Patient reports that she hit her head but did not lose consciousness. She also reports that she landed on her butt and reports that she has buttock pain. She denies any fever chills hemoptysis hematochezia melena nausea vomit diarrhea. 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 Apparently originate on the face involving the left eye that is status post radical resection of her left cheek and exenteration of left eye with flap creation in August 2024. She additionally has a history of alcohol dependence PTSD schizophrenia GERD COPD esophageal obstruction due to previous food impaction diabetes Related Data Home Medications ?Medication ?Instructions ?Recorded ?Confirmed acetaminophen 325 mg tablet 650 mg PO Q6H PRN fever or pain 05/09/24 12/04/24 albuterol sulfate 90 mcg/actuation 2 puff inhalation Q4H PRN 05/09/24 12/04/24 aerosol inhaler shortness of breath or wheezing atorvastatin 80 mg tablet 80 mg PO DAILY 05/09/24 12/04/24 cholecalciferol (vitamin D3) 50 50 mcg PO DAILY 05/09/24 12/04/24 mcg (2,000 unit) capsule ezetimibe 10 mg tablet 10 mg PO DAILY 05/09/24 12/04/24 fluoxetine 40 mg capsule 40 mg PO DAILY 05/09/24 12/04/24 olanzapine 15 mg tablet 15 mg PO HS 05/09/24 12/04/24 omeprazole 40 mg capsule,delayed 40 mg PO DAILY 05/09/24 12/04/24 release polyethylene glycol 3350 17 17 g PO DAILY 05/09/24 12/04/24 gram/dose oral powder ropinirole 0.25 mg tablet 0.25 mg PO BID 05/09/24 12/04/24 donepezil 10 mg tablet 10 mg PO HS 06/13/24 12/04/24 glucagon 1 mg solution for 1 mg SQ Q20M PRN 10/02/24 12/04/24 injection tamsulosin 0.4 mg capsule 0.4 mg PO DAILY 10/02/24 12/04/24 insulin aspart U-100 100 unit/mL 1 sliding scale dose SQ TID 12/04/24 12/04/24 (3 mL) subcutaneous pen (Novolog FlexPen U-100 Insulin aspart) insulin glargine 100 unit/mL (3 50 unit SQ HS 12/04/24 12/04/24 mL) subcutaneous pen (Basaglar KwikPen U-100 Insulin) Previous Rx's ?Medication ?Instructions ?Recorded ferrous sulfate 325 mg (65 mg 325 mg PO BID #180 tabs 05/15/24 iron) tablet fluticasone fur. 100 mcg-umeclid 1 inh inhalation DAILY #60 ea 06/26/24 62.5 mcg-vilant 25 mcg inhalat.powder (Trelegy Ellipta) linagliptin 5 mg tablet (Tradjenta) 5 mg PO DAILY #30 tabs 08/22/24 gabapentin 300 mg capsule 300 mg PO TID #90 caps 11/29/24 dapagliflozin propanediol 10 mg 10 mg PO DAILY #90 tabs 12/04/24 tablet (Farxiga) nitrofurantoin 100 mg PO BID 5 days #10 caps 12/07/24 monohydrate/macrocrystals 100 mg capsule Allergies Allergy/AdvReac Type Severity Reaction Status Date / Time metformin Allergy Unknown Uncoded 06/13/24 11:14 [facility] Disclaimer: The information contained in this section may have been updated after the patient was seen, as this information can be updated by other users. Medical History Facial mass Hemorrhage of skin lesion Esophageal obstruction due to food impaction Food impaction of esophagus Squamous cell carcinoma face, and lung--metastatic Diabetes Nicotine dependence Vitamin D deficiency Osteoporosis Restless leg syndrome Hepatitis B Alcohol dependence Depression Anxiety PTSD (post-traumatic stress disorder) Schizophrenia GERD (gastroesophageal reflux disease) COPD (chronic obstructive pulmonary disease) Skin cancer of face Suicidal ideations Acute encephalopathy Surgical History History of facial surgery radical resection left check and exenteration left eye with flap, Aug 2024 Hx of tubal ligation Social History Smoking Status: Former smoker tobacco type: cigarettes alcohol intake: former substance use type: denies use current occupational status: unemployed Travel in the last 8 weeks: None Have you lived/traveled outside US in past 30 days?: No Contact w/someone who lives/traveled outside US past 30 days?: No Exposure to someone with infectious disease in past 14 days?: No Do you have a fever (greater than 100.4 F or 38 C)?: No Have you tested positive for COVID-19: No Exposed to someone with COVID-19 in past 14 days?: No Do you have a sore throat?: No Do you have a cough?: No Do you have any weakness?: No Do you have any diarrhea?: No Are you experiencing any unusual bleeding?: No Do you have any muscle aches/pain?: No Do you have any abdominal pain?: No Are you experiencing loss of taste or smell?: No Other Medical History Have you received the Pneumonia Vaccine: Yes (03/27/24) ROS Obtained: Yes Systems reviewed as appropriate & no additional complaints except as documented Physical Exam General General appearance: alert and in no apparent distress Respiratory Respiratory exam: Present normal lung sounds bilaterally Cardiovascular Cardiovascular exam: Present regular rate Neurological Exam Neurological exam: Present alert and oriented X3 Medical Decision Making Medical Records Medical records reviewed: Yes I reviewed the patient's medical records. Screening: Per USPSTF and CDC recommendations, given the prevalence of disease in our region, it is our hospital?s policy to screen for HIV and viral Hepatitis for all patients aged 18 and over and those with ongoing risk factors. Syd Inquiry Pt receiving controlled substance: No Vital Signs: 12/07/24 18:05 12/07/24 18:10 12/07/24 18:30 Temperature 99.1 F Temperature Source Oral Pulse Rate 57 L 56 L Pulse Rate [Left Radial] 58 L Respiratory Rate 19 Blood Pressure 140/57 L 150/98 H Blood Pressure [Right Arm] 140/57 L Blood Pressure Mean 108 Blood Pressure Mean [Right Arm] 84 02 Sat by Pulse Oximetry 96 95 96 Oxygen Delivery Method Room Air 12/07/24 19:31 12/07/24 19:45 12/07/24 20:00 Temperature Temperature Source Pulse Rate 62 60 58 L Pulse Rate [Left Radial] Respiratory Rate Blood Pressure Blood Pressure [Right Arm] Blood Pressure Mean Blood Pressure Mean [Right Arm] 02 Sat by Pulse Oximetry 94 L 93 L 93 L Oxygen Delivery Method 12/07/24 21:03 Temperature Temperature Source Pulse Rate Pulse Rate [Left Radial] Respiratory Rate Blood Pressure 139/59 L Blood Pressure [Right Arm] Blood Pressure Mean 111 Blood Pressure Mean [Right Arm] 02 Sat by Pulse Oximetry Oxygen Delivery Method Lab Data Lab results reviewed: Yes I reviewed the patient's lab results. Lab Results 12/07/24 18:37: WBC 3.4 L, RBC 4.26, Hgb 12.7, Hct 39.8, MCV 93.4, MCH 29.8, MCHC 31.9, RDW 14.7, Plt Count 178, MPV 9.9, Neut % (Auto) 66.3, Lymph % (Auto) 21.1, [place] % (Auto) 11.4 H, Eos % (Auto) 1.4, Baso % (Auto) 0.3, Neut # (Auto) 2.3, Lymph # (Auto) 0.7, [place] # (Auto) 0.4, Eos # (Auto) 0.1, Baso # (Auto) 0.0, Sodium 138, Potassium 4.3, Chloride 104, Carbon Dioxide 26, Anion Gap 12.3, BUN 22 H, Creatinine 0.70, Estimated Creat Clear 47, Estimated GFR 81, Est GFR ( Amer) 98, Glucose 185 H, Calcium 8.9, Total Bilirubin 0.4, AST 42 H, ALT 33, Alkaline Phosphatase 143 H, Total Protein 7.2, Albumin 4.0, Globulin 3.2, Albumin/Globulin Ratio 1.3, HCV Ab ABDULAZIZ w/Rflx PCR Qn Negative, HIV Ag/Ab Combo Qual Negative 12/07/24 19:40: SARS-CoV-2 (PCR) Not detected, Influenza A Untype (PCR) Not detected, Influenza Type B (PCR) Not detected 12/07/24 20:14: Urine Color Yellow, Urine Appearance Clear, Urine pH 6.0, Ur Specific [place] 1.015, Urine Protein Negative, Urine Glucose (UA) 2+, Urine Ketones Negative, Urine Blood Negative, Urine Nitrate Negative, Urine Bilirubin Negative, Urine Urobilinogen 0.2, Ur Leukocyte Esterase Negative, Urine RBC 3-5, Urine WBC 20-50, Ur Squamous Epith Cells 3-5, Urine Bacteria 4+ 12/07/24 18:37 12/07/24 18:37 Orders (Tests/Meds): ED MEDICATIONS Generic Name Dose Route Start Last Admin Trade Name Freq PRN Reason Stop Dose Admin Sodium Chloride 10 ml 12/07/24 19:25 12/07/24 19:27 Sodium Chloride 0.9% 10ml Syr (Rad Only) IV 01/06/25 19:24 10 ml NEEDED PRN Administration Maintain IV Site Discontinued Medications Generic Name Dose Route Start Last Admin Trade Name Freq PRN Reason Stop Dose Admin Acetaminophen 1,000 mg 12/07/24 18:19 12/07/24 18:41 Acetaminophen 500mg Tab PO 12/07/24 18:20 1,000 mg ONCE ONE Administration Ceftriaxone Sodium 1 gm/ 50 mls @ 100 mls/hr 12/07/24 21:00 Sodium Chloride IV 12/07/24 21:29 ONCE ONE Iopamidol 80 ml 12/07/24 19:25 12/07/24 19:27 Iopamidol-370 (76%);100ml Bottle IV 12/07/24 19:26 80 ml ONCE ONE Administration Ondansetron HCl 4 mg 12/07/24 18:19 12/07/24 18:41 Ondansetron 4mg/2ml Vial IV 12/07/24 18:20 4 mg ONCE ONE Administration Sodium Chloride 50 ml 12/07/24 19:25 12/07/24 19:27 0.9 % Sodium Chloride 50 Ml Vial IV 12/07/24 19:26 50 ml ONCE ONE Administration ORDERS Category Date Time Status CT angio head Stat Cat Scan 12/07/24 18:[address] angio neck Stat Cat Scan 12/07/24 18:[address] bony pelvis Stat Cat Scan 12/07/24 18:[address] cervical spine wo con Stat Cat Scan 12/07/24 18:[address] head/brain wo con Stat Cat Scan 12/07/24 18:[address] lumbar spine wo con Stat Cat Scan 12/07/24 18:[address] thoracic spine wo con Stat Cat Scan 12/07/24 18:25 Completed CBC w/Auto Diff [Complete Blood Count Auto Diff] Stat Lab 12/07/24 18:37 Completed CMP [Comprehensive Metabolic Panel] Stat Lab 12/07/24 18:37 Completed HIV Combo Stat Lab 12/07/24 18:37 Completed Hepatitis C Ab Qual. W/ RFX Stat Lab 12/07/24 18:37 Completed Rapid PCR Covid and Flu A/B Stat Lab 12/07/24 19:40 Completed UA [Urinalysis and Microscopic] Stat Lab 12/07/24 20:14 Completed Urine Culture Stat Micro 12/07/24 20:14 Received Medical Decision Narrative: In summary patient is a 74-year-old female who presents to the emergency department for evaluation of a fall. Patient is hemodynamically stable with a blood pressure 140/57 heart rate 57 normal sinus rhythm on the bedside monitor breathing 19 times a minute satting at 96% on room air with a temperature of 99.1 upon arrival. Physical exam is remarkable for a well-nourished well- developed 74-year-old female who does not appear to be in acute distress. [place] Coma Score is 15 patient is awake alert and oriented person place and circumstance. I find no contusions abrasions deformities of the head and neck no dorsal spine midline tenderness. Patient moves all 4 extremities she has no focal neurologic deficits with exception of she has no left eye. The right eye round and reactive to light. Patient is neurovascularly intact distally in all 4 extremities. Differential diagnosis includes fall versus occult fracture versus head bleed versus infection etc. Initial workup will be conducted with hematologic labs urinalysis trauma scans. Initial interventions include Tylenol only for now. Initial workup reviewed by me and patient's hematologic labs are nonactionable urinalysis is bland COVID and flu are negative and my informal interpretation of her imaging shows no acute skull fracture or intracranial injury or bleed shows a significant right lung mass which is known and an acute sacral fracture that is nondisplaced prior to radiology read with the remainder of her imaging showing no acute processes prior to radiology read. Given this I had an interactive discussion with [facility] and spoke with Dr. Kaufman regarding orthopedic spine recommendations for her S4 fracture and patient management. They advised weightbearing as tolerated and continued PT OT. Given this patient is appropriate for discharge back to the halfway with weightbearing as tolerated instructions, prescription sent to her pharmacy for Macrodantin and strict return precautions. Critical Care Critical Care Time Critical Care Time: No
--- NOTE | 2024-12-07 18:22 | CT_ITS ---
PROCEDURE INFORMATION: Exam: CT Cervical Spine Without Contrast Exam date and time: 12/07/2024 7:19 PM Age: 74 years old Clinical indication: Injury or trauma; Fall; Blunt trauma; Additional info: Trauma, critical injury suspected TECHNIQUE: Imaging protocol: Computed tomography of the cervical spine without contrast. Radiation optimization: All CT scans at this facility use at least one of these dose optimization techniques: automated exposure control; mA and/or kV adjustment per patient size (includes targeted exams where dose is matched to clinical indication); or iterative reconstruction. COMPARISON: No relevant prior studies available. FINDINGS: Vertebrae: No acute fracture. Normal alignment. Early degenerative disc disease within mid cervical spine. Mild degenerative disc disease within lower cervical spine. Paranasal sinuses: Scattered mucosal thickening of visualized sinuses. 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 Lungs: Spiculated lesion with probable cavitation within RIGHT lung, partially imaged. Vasculature: Atherosclerotic disease of visualized arteries. Soft tissues: Unremarkable. IMPRESSION: 1. No fracture of cervical spine. 2. Pulmonary lesion, indeterminate but concerning for malignancy. Follow up as clinically warranted. 3. See head CT report for additional details.
--- NOTE | 2024-12-07 18:25 | CT_ITS ---
PROCEDURE INFORMATION: Exam: CTA Head With Contrast, Arteriography Exam date and time: 12/07/2024 7:26 PM Age: 74 years old Clinical indication: Injury or trauma; Fall; Blunt trauma; Head; Additional info: Trauma, critical injury suspected TECHNIQUE: Imaging protocol: Computed tomographic angiography of the head with contrast. Exam focused on the arteries. 3D rendering (Not supervised by radiologist): MIP and/or 3D reconstructed images were created by the technologist. Radiation optimization: All CT scans at this facility use at least one of these dose optimization techniques: automated exposure control; mA and/or kV adjustment per patient size (includes targeted exams where dose is matched to clinical indication); or iterative reconstruction. Contrast material: ISOVUE 370; Contrast volume: 80 ml; Contrast route: INTRAVENOUS (IV); COMPARISON: CT HEAD/BRAIN WO CON 12/07/2024 7:12 PM FINDINGS: ANTERIOR CIRCULATION: Right internal carotid artery: The right ICA petrous segment is unremarkable. Cavernous and supraclinoid segments demonstrate minor calcific plaque without stenosis. Right middle cerebral artery: Unremarkable. No occlusion or significant stenosis. No aneurysm. Right anterior cerebral artery: Unremarkable. No occlusion or significant stenosis. No aneurysm. The anterior communicating artery is unremarkable. Left internal carotid artery: The left ICA petrous segment is unremarkable. The cavernous and supraclinoid segments demonstrate mild calcific plaque without stenosis. Left middle cerebral artery: Unremarkable. No occlusion or significant stenosis. No aneurysm. Left anterior cerebral artery: Unremarkable. No occlusion or significant stenosis. No aneurysm. POSTERIOR CIRCULATION: Right vertebral artery: Unremarkable. No occlusion or significant stenosis. No aneurysm. Left vertebral artery: Unremarkable. No occlusion or significant stenosis. No aneurysm. Basilar artery: Unremarkable. No occlusion or significant stenosis. No aneurysm. Right posterior cerebral artery: Moderate-sized right posterior communicating artery present. No occlusion or significant stenosis. No aneurysm. Left posterior cerebral artery: Small left posterior communicating artery present. No occlusion or significant stenosis. No aneurysm. Veins: The dural venous sinuses and major cortical veins enhance appropriately without evidence of thrombosis. Brain: No enhancing brain lesions or vascular malformations are identified. Mild-moderate generalized cerebral/cerebellar atrophy. Mild periventricular bilateral white matter hypodensities which are nonspecific but most commonly associated with chronic microvascular ischemia in this age group. Cerebral ventricles: No ventriculomegaly. Orbital cavities: Prior left ocular enucleation again noted with extensive soft tissue density in the left orbital cavity, including somewhat nodular hyperdense/hyperenhancing elements anteromedially measuring up to 2.2 x 1.1 cm. Correlate clinically for any known history of malignancy, recommend management per treatment protocol, consider PET-CT or biopsy. Mastoid air cells: Partially opacified bilateral mastoid air cells with associated sclerosis suggesting mild chronic mastoiditis. No gross coalescence. Paranasal sinuses: Mucosal thickening in the left maxillary sinus suggesting chronic sinusitis. Bones/joints: Unremarkable. No acute fracture. Soft tissues: Unremarkable. IMPRESSION: 1. No acute vascular abnormalities. No evidence of large vessel occlusion or significant stenosis. No evidence of arterial dissection or aneurysm/pseudoaneurysm. 2. Prior left ocular enucleation again noted with extensive soft tissue density in the left orbital cavity and an enhancing 2.2 x 1.1 cm component at the anteromedial orbit which could represent neoplasm.
--- NOTE | 2024-12-07 18:25 | CT_ITS ---
PROCEDURE INFORMATION: Exam: CTA Neck With Contrast Exam date and time: 12/07/2024 7:26 PM Age: 74 years old Clinical indication: Injury or trauma; Fall; Blunt trauma; Head; Additional info: Trauma, critical injury suspected TECHNIQUE: Imaging protocol: Computed tomographic angiography of the neck with contrast. Exam focused on the cervical segments of the vasculature. 3D rendering (Not supervised by radiologist): MIP and/or 3D reconstructed images were created by the technologist. Radiation optimization: All CT scans at this facility use at least one of these dose optimization techniques: automated exposure control; mA and/or kV adjustment per patient size (includes targeted exams where dose is matched to clinical indication); or iterative reconstruction. Contrast material: ISOVUE 370; Contrast volume: 80 ml; Contrast route: INTRAVENOUS (IV); COMPARISON: CT CERVICAL SPINE WO CON 12/07/2024 7:19 PM FINDINGS: Right common carotid artery: Proximal segment motion limited. No stenosis. No dissection or occlusion. Right internal carotid artery: Mild motion limitation. Mild tortuosity. No stenosis. No dissection or occlusion. Right external carotid artery: Mild ostial calcific plaque. No stenosis. No dissection or occlusion. Left common carotid artery: Variant origin from the brachiocephalic artery. Mild tortuosity. No stenosis. No dissection or occlusion. Left internal carotid artery: Moderate calcific plaque in the left carotid bulb. No stenosis. No dissection or occlusion. Left external carotid artery: Mild ostial/post ostial calcific plaque. No stenosis. No dissection or occlusion. Right vertebral artery: V1 segment evaluation limited due to motion and adjacent streak artifact. Remainder normal. No stenosis. No dissection or occlusion. Left vertebral artery: Mild V1 tortuosity. No stenosis. No dissection or occlusion. Brachiocephalic artery: The brachiocephalic artery demonstrates mild calcific plaque without stenosis. Right subclavian artery: The right subclavian artery assessment is limited by motion and streak artifact. Left subclavian artery: The left subclavian artery assessment is limited by motion and streak artifact. Severe post ostial calcific plaque is present with suspected severe post ostial stenosis of 80%. Correlate clinically for asymmetric brachial pressures. Consider nonemergent carotid Doppler ultrasound to exclude evidence of subclavian steal. Aorta: The visualized aortic arch demonstrates moderate ectasia and calcific plaque without evidence of dissection or gross aneurysm. Thyroid: The thyroid gland is unremarkable. 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 No inflammatory changes to favor abscessed node. Bones/joints: No acute osseous abnormalities are identified. Osteopenia. Mild cervical spondylosis. Lungs: 4 x 3 x 3.5 cm zone of rounded masslike consolidation versus mass in the right upper lobe posterior segment without gross change from recent cervical spine CT. Consider pulmonary referral and consideration for PET-CT or biopsy if not previously assessed. IMPRESSION: 1. No evidence of arterial occlusion, dissection, or aneurysm/pseudoaneurysm. 2. Severe post ostial calcific plaque of the left subclavian artery producing severe 80% post ostial stenosis. Correlate clinically for asymmetric brachial pressures. Consider nonemergent carotid Doppler ultrasound to exclude evidence of subclavian steal. 3. 4 cm rounded masslike consolidation versus pulmonary mass in the right upper lobe posterior segment unchanged from recent prior scan. Consider pulmonary referral and consideration for PET-CT or biopsy if not previously assessed. 4. Enlarged left level 5 cervical node with central cavitation/necrosis, concerning for possible brenden malignancy. REFERENCES: NASCET CRITERIA. The degree of stenosis in the cervical segment of the internal carotid artery is based on NASCET criteria. Normal is no stenosis. Mild is less than 50% stenosis. Moderate is 50-69% stenosis. Severe is 70% to 99% stenosis. Total occlusion is no detectable patent lumen.
--- NOTE | 2024-12-07 18:25 | CT_ITS ---
PROCEDURE INFORMATION: Exam: CT Lumbar Spine Without Contrast Exam date and time: 12/07/2024 7:19 PM Age: 74 years old Clinical indication: Injury or trauma; Fall; Blunt trauma (contusions or hematomas); Additional info: Trauma, critical injury suspected TECHNIQUE: Imaging protocol: Computed tomography of the lumbar spine without contrast. Radiation optimization: All CT scans at this facility use at least one of these dose optimization techniques: automated exposure control; mA and/or kV adjustment per patient size (includes targeted exams where dose is matched to clinical indication); or iterative reconstruction. COMPARISON: CT THORACIC SPINE WO CON 12/07/2024 7:19 PM FINDINGS: Limitations: Examination is limited by respiratory motion. Bones/joints: Osseous demineralization is evident. Transverse sacral fracture at the level of S3/S4 through the anterior and posterior elements appears to be acute. Diaphragm: A small sliding hiatal hernia is present. Gallbladder and biliary ducts: Cholelithiasis is present without findings to favor cholecystitis. No gallbladder wall thickening or pericholecystic fluid collection. Stomach and bowel: Left colon diverticulosis without associated inflammation. Vasculature: Atherosclerosis is evident. Soft tissues: Unremarkable. IMPRESSION: 1. Transverse sacral fracture at the level of S3/S4 through the anterior and posterior elements appears to be acute. 2. No acute lumbar spine fracture.
--- NOTE | 2024-12-07 18:25 | CT_ITS ---
PROCEDURE INFORMATION: Exam: CT Thoracic Spine Without Contrast Exam date and time: 12/07/2024 7:19 PM Age: 74 years old Clinical indication: Injury or trauma; Fall; Blunt trauma (contusions or hematomas); Additional info: Trauma, critical injury suspected TECHNIQUE: Imaging protocol: Computed tomography of the thoracic spine without contrast. Radiation optimization: All CT scans at this facility use at least one of these dose optimization techniques: automated exposure control; mA and/or kV adjustment per patient size (includes targeted exams where dose is matched to clinical indication); or iterative reconstruction. COMPARISON: CT CERVICAL SPINE WO CON 12/07/2024 7:19 PM FINDINGS: Bones/joints: Focal rounded endplate abnormalities likely degeneration or benign Schmorl's node. Thoracic spondylosis is present. Soft tissues: Unremarkable. Vasculature: Significant stenosis of the proximal left subclavian artery suspected. Atherosclerosis is evident. Lungs: Indeterminate partially cavitary consolidation of the right upper lobe adjacent to the major fissure measures 2.8 x 3.4 x 4.0 cm. Differential diagnosis includes malignancy or cavitary pneumonia. Bronchial inflammation is evident. Dependent bilateral lower lobe subsegmental airway occlusions could be related to prominent secretions or possibly small volume aspiration. Coronary arteries: Calcific coronary artery disease is evident. Gallbladder and biliary ducts: Cholelithiasis is present without findings to favor cholecystitis. No gallbladder wall thickening or pericholecystic fluid collection. Other findings: A small sliding hiatal hernia is present. IMPRESSION: 1. Indeterminate partially cavitary consolidation of the right upper lobe adjacent to the major fissure measures 2.8 x 3.4 x 4.0 cm. Differential diagnosis includes malignancy or cavitary pneumonia. PET CT, tissue sampling or three-month follow-up CT chest could be considered to further define. (Reference: Farnaz) 2. Findings of bronchial inflammation/bronchitis. No consolidation. 3. Dependent bilateral lower lobe subsegmental airway occlusions could be related to prominent secretions or possibly small volume aspiration. 4. No acute thoracic spine fracture. 5. Significant stenosis of the proximal left subclavian artery suspected. This raises concern for the possibility of subclavian steal syndrome. Recommend correlation between upper extremity blood pressures. REFERENCES: Farnaz Beasley, et al. Guidelines for Management of Incidental Pulmonary Nodules Detected on CT Images: From the Fleischner Society 2017. Radiology. 2017;284(1):228-243.
--- NOTE | 2024-12-07 18:25 | CT_ITS ---
PROCEDURE INFORMATION: Exam: CT Pelvis Without Contrast, Skeleton Exam date and time: 12/07/2024 7:24 PM Age: 74 years old Clinical indication: Injury or trauma; Fall; Blunt trauma (contusions or hematomas); Does not apply; Pelvic region; Additional info: Trauma, critical injury suspected TECHNIQUE: Imaging protocol: Computed tomography of the pelvis without contrast. Exam focused on the skeleton. Radiation optimization: All CT scans at this facility use at least one of these dose optimization techniques: automated exposure control; mA and/or kV adjustment per patient size (includes targeted exams where dose is matched to clinical indication); or iterative reconstruction. COMPARISON: CT BONY PELVIS 12/07/2024 7:24 PM FINDINGS: Intestine: Left colon diverticulosis without associated inflammation. Appendix: Normal appendix. Vasculature: Atherosclerosis is evident. Bones/joints: Osseous demineralization is evident. Acute mildly oblique S4 fracture with mild posterior angulation of the fractured posterior elements. Soft tissues: Minimal presacral soft tissue contusion. IMPRESSION: Acute mildly oblique S4 fracture with mild posterior angulation of the fractured posterior elements. No other pelvic fracture identified.
[2024-12-07] MEDS: ACETAMINOPHEN 500MG TAB 1000 MG PO (18:41)
[2024-12-07] MEDS: ONDANSETRON 4MG/2ML VIAL 4 MG IV (18:41)
[2024-12-07 18:47] LABS: Eosinophils # 0.1 K/mm3 (0.0-0.4); Eosinophils % 1.4 % (0.1-12.0); Mean Platelet Volume 9.9 fl (7.4-10.4); Monocytes # 0.4 K/mm3 (0.1-1.0); Neutrophils # 2.3 K/mm3 (1.8-7.8)
[2024-12-07 18:48] LABS: Chloride 104 mmol/L (98-107)
[2024-12-07 18:49] LABS: Potassium 4.3 mmoL/L (3.5-5.1); Sodium 138 mmol/L (136-145)
[2024-12-07 18:50] LABS: Basophils % 0.3 % (0.1-2.0); Hematocrit 39.8 % (37.0-47.0); Hemoglobin 12.7 g/dL (12.2-16.2); Lymphocytes # 0.7 K/mm3 (0.7-4.5); Lymphocytes % 21.1 % (10-50); Mean Corpuscular HGB Conc 31.9 g/dL (31.8-35.4); Mean Corpuscular Hemoglobin 29.8 pg (27.0-31.2); Mean Corpuscular Volume 93.4 fl (81-99); Neutrophils % 66.3 % (37.0-80.0); Platelet Count 178 K/mm3 (142-424); Red Blood Count 4.26 M/mm3 (4.20-5.40); Red Cell Distribution Width 14.7 % (11.5-17.5)
[2024-12-07 18:51] LABS: Blood Urea Nitrogen 22 mg/dl (7-17); Creatinine Clearance Estimated 47 mL/min (50-200); Estimated Glomerular Filt Rate 81 ml/min (>60); GFR (African American) 98 ML/MIN (>60)
[2024-12-07 18:52] LABS: Alanine Aminotransferase 33 U/L (12-78); Albumin/Globulin Ratio 1.3 (1.1-1.8); Alkaline Phosphatase 143 U/L (38-126); Anion Gap 12.3 mEq/L (5-15); Aspartate Amino Transferase 42 U/L (14-36); Bilirubin,Total 0.4 mg/dl (0.2-1.3); Calcium 8.9 mg/dl (8.4-10.2); Carbon Dioxide 26 mmol/L (22.0-30.0); Globulin 3.2 g/dL (1.3-3.2); Glucose 185 mg/dl (74-100); Total Protein,Serum 7.2 g/dl (6.3-8.2)
[2024-12-07 18:55] LABS: Monocytes % 11.4 % (1.7-9.3); White Blood Count 3.4 K/mm3 (4.8-10.8)
--- NOTE | 2024-12-07 18:58 | CT_ITS ---
PROCEDURE INFORMATION: Exam: CT Head Without Contrast Exam date and time: 12/07/2024 7:12 PM Age: 74 years old Clinical indication: Injury or trauma; Fall; Blunt trauma (contusions or hematomas); Additional info: Trauma, critical injury suspected TECHNIQUE: Imaging protocol: Computed tomography of the head without contrast. Radiation optimization: All CT scans at this facility use at least one of these dose optimization techniques: automated exposure control; mA and/or kV adjustment per patient size (includes targeted exams where dose is matched to clinical indication); or iterative reconstruction. COMPARISON: No relevant prior studies available. FINDINGS: Brain: Mild atrophy. No intracranial hemorrhage. No mass. No edema. Cerebral ventricles: No hydrocephalus. Paranasal sinuses: Moderate focal mucosal thickening of LEFT maxillary sinus. Scattered minimal mucosal thickening of remaining sinuses. Mastoid air cells: No significant effusion. 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 Heterogeneous soft tissue attenuation within LEFT orbit. Focal soft tissue along inferomedial aspect of LEFT orbit/nasal region. Bones: No acute fracture. Apparent osseous erosion of adjacent floor and medial wall of LEFT orbit/nasal bone by aforementioned soft tissue density. Resection or chronic erosion lateral wall of LEFT orbit. Soft tissues: See above. Vasculature: Atherosclerotic disease of intracranial arteries. IMPRESSION: 1. No intracranial hemorrhage. 2. 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 Focal soft tissue along inferomedial aspect of LEFT orbit/nasal region with apparent osseous erosion of adjacent floor and medial wall of orbit/nasal bone. Recurrent or residual neoplasm not excluded. Compare with prior examinations if available. Clinical correlation and follow up are recommended. THIS REPORT CONTAINS FINDINGS THAT MAY BE CRITICAL TO PATIENT CARE. The findings were verbally communicated by me via telephone conference with Jean Marie Yarbrough at 7:40 PM EST on 12/07/2024. The findings were acknowledged and understood.
--- NOTE | 2024-12-07 19:14 | PC.NURSE ---
Pt in CT scan report received from Vasquez CRUZ
[2024-12-07] MEDS: 0.9 % SODIUM CHLORIDE 50 ML VIAL IV (19:27)
[2024-12-07] MEDS: IOPAMIDOL-370 (76%);100ML BOTTLE 80 ML IV (19:27)
[2024-12-07] MEDS: SODIUM CHLORIDE 0.9% 10ML SYR (RAD ONLY) 10 ML IV (19:27)
[2024-12-07 19:44] LABS: Coronavirus 19, PCR Not Detected (NotDetected); Influenza A, PCR Not Detected (NotDetected); Influenza B, PCR Not Detected (NotDetected)
[2024-12-07 19:49] LABS: HIV Combo NEGATIVE (Negative)
[2024-12-07 19:56] LABS: Hepatitis C Ab Qual. W/ RFX NEGATIVE (Negative)
[2024-12-07 20:18] LABS: Microscopic, Urine URINE MICROSCOPIC (MICROSCOPIC)
[2024-12-07 20:20] LABS: Appearance,Urine CLEAR (Clear); Bilirubin,Urine Negative (Negative); Blood, Urine Negative (Negative); Color,Urine YELLOW (Yellow); Glucose,Urine (UA) 2+ (Negative); Ketones,Urine Negative (Negative); Leukocyte Esterase,Urine Negative (Negative); Nitrate,Urine Negative (Negative); Protein,Urine Negative (Negative); Specific Gravity, Urine 1.015 (1.005-1.030); Urobilinogen,Urine 0.2 EU/dl (0.2)
--- NOTE | 2024-12-07 20:20 | PC.NURSE ---
collected urine and sent to lab
[2024-12-07 20:35] LABS: WBC,Urine 20-50 #/hpf (0-3)
[2024-12-07 20:36] LABS: Bacteria,Urine 4+ /lpf
--- NOTE | 2024-12-07 21:15 | PC.NURSE ---
added a purewick to pt for comfort when voiding.
[2024-12-07] MEDS: CEFTRIAXONE 1 GM 1 GM in 0.9 % SODIUM CHLORIDE 50 ML IV (22:09)
--- NOTE | 2024-12-07 22:26 | PC.NURSE ---
EMS notified of transfer to [place]
--- NOTE | 2024-12-10 08:00 | PC.NURSE ---
prelim urine culture discussed with , no new orders
--- NOTE | 2024-12-13 16:00 | PC.NURSE ---
URINE CULTURE DISCUSSED WITH DR ALONZO, NO NEW ORDERS
== END 2024-12-07 22:58 ==
PROVIDERS: Physician Assistant; Emergency Provider Emergency Medicine; PCP Family Medicine
DX: S32.10XA Unspecified fracture of sacrum, initial encounter for closed fracture (principal); N39.0 Urinary tract infection, site not specified; R31.9 Hematuria, unspecified; R52 Pain, unspecified; W19.XXXA Unspecified fall, initial encounter; Y93.89 Activity, other specified; Y92.129 Unspecified place in nursing home as the place of occurrence of the external cause
CPT/HCPCS: 70450; 70496; 70498; 72125; 72128; 72131; 72192; 80053; 81001; 85025; 86803; 87086; 87088; 87186; 87389; 87636; 96365; 96374; 99285; J0696; J2405; Q9967

== ENCOUNTER 2025-02-11 07:25 | Outpatient (CLI) | payer MEDICARE, MEDICAID, SELFPAY ==
[2025-02-11 08:39] LABS: Hemoglobin A1C 7.1 % (4.0-6.0)
== END 2025-02-11 23:59 | disposition home or self-care (01) ==
PROVIDERS: PCP Family Medicine; Visit Provider Family Medicine
DX: E11.9 Type 2 diabetes mellitus without complications (principal)
CPT/HCPCS: 36415; 83036

== ENCOUNTER 2025-02-13 07:38 | Outpatient (CLI) | payer MEDICARE, MEDICAID, SELFPAY ==
[2025-02-13 09:15] LABS: Glucose,Fasting 33 mg/dl (74-100)
[2025-02-13 09:42] LABS: Hemoglobin A1C 6.8 % (4.0-6.0)
== END 2025-02-13 23:59 | disposition home or self-care (01) ==
LOC: LAB 07:39
PROVIDERS: PCP Nurse Practitioner Family; Visit Provider Nurse Practitioner Family
DX: E11.9 Type 2 diabetes mellitus without complications (principal); Z79.4 Long term (current) use of insulin
CPT/HCPCS: 36415; 82947; 83036

== ENCOUNTER 2025-02-28 10:53 | Outpatient (CLI) | payer MEDICARE, MEDICAID, SELFPAY ==
--- NOTE | 2025-02-28 11:12 | PC.NURSE ---
1112-collected labs via venipuncture stick in right ac with butterfly needle; pt to d/c
[2025-02-28 11:28] LABS: Basophils % 0.1 % (0.1-2.0); Eosinophils # 0.1 K/mm3 (0.0-0.4); Eosinophils % 1.3 % (0.1-12.0); Hematocrit 39.8 % (37.0-47.0); Hemoglobin 13.1 g/dL (12.2-16.2); Lymphocytes # 1.1 K/mm3 (0.7-4.5); Lymphocytes % 15.6 % (10-50); Mean Corpuscular HGB Conc 32.9 g/dL (31.8-35.4); Mean Corpuscular Hemoglobin 31.1 pg (27.0-31.2); Mean Corpuscular Volume 94.5 fl (81-99); Mean Platelet Volume 9.6 fl (7.4-10.4); Monocytes # 0.4 K/mm3 (0.1-1.0); Monocytes % 5.6 % (1.7-9.3); Neutrophils # 5.5 K/mm3 (1.8-7.8); Nucleated Red Blood Cells # 0 10^3/uL; Nucleated Red Blood Cells % 0 %; Platelet Count 189 K/mm3 (142-424); Red Blood Count 4.21 M/mm3 (4.20-5.40); Red Cell Distribution Width 14.7 % (11.5-17.5); Red Cell Distribution Width-SD 51.4 fL; White Blood Count 7.1 K/mm3 (4.8-10.8)
[2025-02-28 11:38] LABS: Chloride 102 mmol/L (98-107); Potassium 4.3 mmoL/L (3.5-5.1); Sodium 139 mmol/L (136-145)
[2025-02-28 11:40] LABS: Alanine Aminotransferase 31 U/L (12-78); Anion Gap 15.3 mEq/L (5-15); Aspartate Amino Transferase 30 U/L (14-36); Blood Urea Nitrogen 16 mg/dl (7-17); Carbon Dioxide 26 mmol/L (22.0-30.0); Estimated Glomerular Filt Rate 97 ml/min (>60); GFR (African American) 118 ML/MIN (>60)
[2025-02-28 11:41] LABS: Albumin/Globulin Ratio 1.2 (1.1-1.8); Alkaline Phosphatase 189 U/L (38-126); Bilirubin,Total 0.5 mg/dl (0.2-1.3); Calcium 9.1 mg/dl (8.4-10.2); Globulin 3.4 g/dL (1.3-3.2); Glucose 273 mg/dl (74-100); Total Protein,Serum 7.4 g/dl (6.3-8.2)
[2025-02-28 11:58] LABS: T4 (Thyroxine) 9.3 ug/dl (5.53-11.0)
[2025-02-28 13:08] LABS: Thyroid Stimulating Hormone 1.64 uIU/mL (0.465-4.68)
== END 2025-02-28 11:20 | disposition home or self-care (01) ==
PROVIDERS: PCP Family Medicine; Visit Provider Internal Medicine Medical Oncology
DX: C78.00 Secondary malignant neoplasm of unspecified lung (principal); C44.321 Squamous cell carcinoma of skin of nose; R74.01 Elevation of levels of liver transaminase levels; Z79.899 Other long term (current) drug therapy
CPT/HCPCS: 36415; 80053; 84436; 84443; 85025

== ENCOUNTER 2025-03-14 11:03 | Outpatient (CLI) | payer MEDICARE, MEDICAID, SELFPAY ==
[2025-03-14] MEDS: SODIUM CHLORIDE 0.9% 50ML BAG 50 ML IV (11:29)
[2025-03-14] MEDS: CEMIPLIMAB-RWLC 350 MG in 0.9 % SODIUM CHLORIDE 100 ML 214 MG IV (11:29)
[2025-03-14 11:38] VITALS: BP 132/74; PULSE 112; RESP 18; O2SAT 96
[2025-03-14 12:20] VITALS: BP 139/65; PULSE 61; RESP 18; O2SAT 96
== END 2025-03-14 12:20 | disposition home or self-care (01) ==
LOC: INF 11:07
PROVIDERS: PCP Family Medicine; Visit Provider Internal Medicine Medical Oncology
DX: C44.321 Squamous cell carcinoma of skin of nose (principal); C78.00 Secondary malignant neoplasm of unspecified lung
CPT/HCPCS: 96413; J9119

== ENCOUNTER 2025-04-04 10:56 | Outpatient (CLI) | payer MEDICARE, MEDICAID, SELFPAY ==
--- OUTSIDE RECORDS SUMMARY | 2025-04-04 10:59 | XMS_ITS | Continuity of Care Document ---
Author Organization [facility] Phone Care Team Providers Care Butter Printer Name Role Phone KAILEY DEE Unavailable KAILEY DEE Admitting KAILEY DEE Primary Attending AMANDA CARTAGENA Primary Care RESULTS Patient: MATEUS PADRON Date of : 1950 1 LABORATORY RESULTS Information is not available LABORATORY NARRATIVE RESULTS Information is not available RADIOLOGY RESULTS ORDER 100: PET W/CT SKULL-DC D THIGH (LOINC: 83533-8) ORDER DATE: February 11, 2025 12:54:00 PM [facility] PERFORMING LAB: [address] [id number] Final Result Date: February 11, 2025 3:03:[address] [address] Name: NEREIDA IGNACIO Exam Date: 02/11/2025 : 1950 Age 74 years Gender: F Physician: KAILEY DEE Facility: [facility] Facility HSV: Outpatient Exam: PET W/CT SKULL-MID THIGH EXAMINATION: SKULL BASE TO MID THIGH F-18 FDG PET/CT CLINICAL INDICATION: Female, 74 years old. TECHNIQUE: Low dose, non-diagnostic quality CT images were acquired from the skull base to the mid thighs for attenuation correction and anatomic localization. This was followed by positron emission tomography (PET) imaging in the same distribution. [id number]. Radiopharmaceutical: 11.76 mCi of F-18 FDG. Recent blood sugar level: 155 mg/dl. Uptake time: 55 minutes. COMPARISON: CTs December 07, 2024 no reports available. FINDINGS: HEAD/NECK: 3.5 cm enlarged left cervical chain lymph node deep to the sternocleidomastoid muscle. This node is hypermetabolic, max SUV 6.7. Skin nodule left aspect of the nose with underlying osseous destructive changes. Hypermetabolic, max SUV 6.7. Absent left globe. CHEST: Pleural-based mass or consolidation in the posterior right upper lobe, hypermetabolic with a max SUV of 10.7. No abnormal hypermetabolic activity in the lungs. No enlarged or hypermetabolic mediastinal/hilar lymph nodes. Coronary atherosclerotic disease. ABDOMEN/PELVIS: Normal physiologic GI and uptake. No abnormal hypermetabolic activity. No acute abnormality on the nonenhanced CT. Cholelithiasis. Aortic and iliac atherosclerotic disease. BONES: Other than the nasal bridge/left periorbital osseous destructive changes which are hypermetabolic, no other abnormal osseous uptake. IMPRESSION: 2.6 cm hypermetabolic nodule left nasal region consistent with history of squamous cell carcinoma. Underlying osseous destructive changes. 3.5 cm hypermetabolic left cervical chain lymph node indicative of metastatic disease. 3.1 cm focal area of increased FDG uptake in the posterior right upper lobe. Differential includes pneumonia versus additional neoplastic process. An area Legally authenticated by KING JUAN 2025-02-11 11:03:29 of consolidation was also noted here on the patient's thoracic CT December 07, 2024. Electronically signed by: Juan Haywood MD 02/12/2025 01:40 PM EDT Dictated By: Juan Haywood Transcribed By: Transcribed On: 02/11/2025 11:03 AM Electronically signed by: Juan Haywood 02/11/2025 Thank you for referring NEREIDA IGNACIO to [facility]. Legally authenticated by KING JUAN 2025-02-11 11:03:29 PATHOLOGY NARRATIVE RESULTS Information is not available MICROBIOLOGY RESULTS No Micro Labs/Results Exist for Patient BLOOD ADMIN RESULTS Information is not available MEDICATIONS HOME MEDICATIONS Status RXNORM NDC Medication Dose Route Frequency Dates Comments Reported By Updated By Drug Treatment Unknown DISCHARGE MEDICATIONS Status RXNORM NDC Medication Dose Route Frequency Dates Comments Physician Updated By No Discharge Medication Info rmation Available INPATIENT MEDICATIONS Status RXNORM NDC Medication Dose Route Frequency Rat e Quantity Dates Comments Physician Updated By No Inpatient Medication Info rmation Available SOCIAL HISTORY SOCIAL HISTORY SNOMED-CT Social History Element Description Effective Dates Offered Cessation Comment UpdatedBy [id number] Smoking Status Unknown If Ever Smoked SOCIAL HISTORY - Gender Sex: Female SOCIAL HISTORY - Status : status i nformation is not available Intention in Next Year: intention information is not available SOCIAL HISTORY - Sexual Behavior Sexual Orientation Gender Identity SNOMED-CT Description SNO MED -CT Description Activity Level No of Partners Partner Type UpdatedBy Information is not available HEALTH CONCERNS Problems Concern Status Health Concern problem infor mation not available. Smoking Status Status Years Used Consumed packs p er day Health Concern smoking histo ry information not available. Family History Concern Status Health Concern family histor y information not available. ENCOUNTERS ENCOUNTER INFORMATION Reason for Visit PET SCAN Admission February 11, 2025 12:48:00 PM [facility] G [address] [address] Discharge February 11, 2025 12:48:00 PM [facility] D ISCHARGED TO HOME OR SELF CARE ENCOUNTER DIAGNOSES Notes information is not maikel ilable. Code System Diagnosis Onset Date Diagnosis information is not available. ABSTRACT DIAGNOSES Code System Diagnosis Updated By C44.92 ICD10 SQUAMOUS CELL CA RCINOMA OF SKIN, UNSPECIFIED [id number] on March 28, 2025 2:44:58 PM [facility] C44.320 ICD10 SQUAMOUS CELL CA RCINOMA OF SKIN OF UNSPECIFIED PARTS OF FACE [id number] on March 28, 2025 2:44:58 PM [facility] R93.89 ICD10 ABNORMAL FINDING S ON DIAGNOSTIC IMAGING OF OTHER SPECIFIED BODY STRUCTURES [id number] on March 28, 2025 2:44:58 PM [facility] R91.8 ICD10 OTHER NONSPECIFI C ABNORMAL FINDING OF LUNG FIELD [id number] on March 28, 2025 2:44:58 PM [facility] CARE TEAM Care Butter Printer Role KAILEY DEE Referring KAILEY DEE Admitting KAILEY DEE Primary Attending AMANDA CARTAGENA Primary Care CARE TEAM 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 Role on Team Status Start Date End Date Update d By SOIEL Holliday PCP normal January 17, 2025 1:37:38 PM [facility] February 11, 2025 12:48:00 PM [facility] [id number] on January 17, 2025 1:37:38 PM [facility] LEILA COTTO Referring normal January 17, 2025 1:37:38 PM UTC February 11, 2025 12:48:00 PM [place] [id number] on January 17, 2025 1:37:38 PM UTC LEILA COTTO Attending normal January 17, 2025 1:37:38 PM UTC February 11, 2025 12:48:00 PM UTC [id number] on January 17, 2025 1:37:38 PM [place] LEILA COTTO Admitting normal January 17, 2025 1:37:38 PM UTC February 11, 2025 12:48:00 PM UTC [id number] on January 17, 2025 1:37:38 PM UTC
[2025-04-04 11:00] VITALS: BMI 24.0
[2025-04-04 11:23] LABS: Basophils % 0.1 % (0.1-2.0); Eosinophils % 0.3 % (0.1-12.0); Hematocrit 44.2 % (37.0-47.0); Immature Granulocytes # 0.03 10^3uL; Immature Granulocytes % 0.4 %; Lymphocytes # 0.7 K/mm3 (0.7-4.5); Lymphocytes % 9.6 % (10-50); Mean Corpuscular HGB Conc 31.7 g/dL (31.8-35.4); Mean Corpuscular Hemoglobin 30.8 pg (27.0-31.2); Mean Corpuscular Volume 97.4 fl (81-99); Mean Platelet Volume 9.2 fl (7.4-10.4); Monocytes # 0.3 K/mm3 (0.1-1.0); Monocytes % 4.8 % (1.7-9.3); Neutrophils # 5.8 K/mm3 (1.8-7.8); Neutrophils % 84.8 % (37.0-80.0); Nucleated Red Blood Cells # 0 10^3/uL; Nucleated Red Blood Cells % 0 %; Platelet Count 226 K/mm3 (142-424); Red Blood Count 4.54 M/mm3 (4.20-5.40); Red Cell Distribution Width 15.8 % (11.5-17.5); Red Cell Distribution Width-SD 56.9 fL; White Blood Count 6.9 K/mm3 (4.8-10.8)
[2025-04-04 11:33] LABS: Alanine Aminotransferase 57 U/L (12-78); Albumin Level 4.2 g/dl (3.5-5.0); Albumin/Globulin Ratio 1.3 (1.1-1.8); Alkaline Phosphatase 236 U/L (38-126); Anion Gap 12.2 mEq/L (5-15); Aspartate Amino Transferase 86 U/L (14-36); Bilirubin,Total 0.7 mg/dl (0.2-1.3); Blood Urea Nitrogen 22 mg/dl (7-17); Calcium 9.6 mg/dl (8.4-10.2); Carbon Dioxide 28 mmol/L (22.0-30.0); Chloride 105 mmol/L (98-107); Creatinine Clearance Estimated 47 mL/min (50-200); Estimated Glomerular Filt Rate 81 ml/min (>60); GFR (African American) 98 ML/MIN (>60); Globulin 3.3 g/dL (1.3-3.2); Glucose 207 mg/dl (74-100); Potassium 4.2 mmoL/L (3.5-5.1); Sodium 141 mmol/L (136-145); Total Protein,Serum 7.5 g/dl (6.3-8.2)
[2025-04-04 12:04] LABS: Thyroid Stimulating Hormone 1.63 uIU/mL (0.465-4.68)
[2025-04-04] MEDS: 0.9 % SODIUM CHLORIDE 50 ML 100 ML IV (12:19)
[2025-04-04] MEDS: CEMIPLIMAB-RWLC 350 MG in 0.9 % SODIUM CHLORIDE 100 ML 214 MG IV (12:20)
[2025-04-04 12:30] VITALS: BP 131/72; PULSE 71; RESP 16; TEMP 35.6; O2SAT 94
[2025-04-04 12:45] VITALS: BP 155/78; PULSE 80; RESP 16
[2025-04-04 13:00] VITALS: BP 133/70; PULSE 73; RESP 16
== END 2025-04-04 13:15 | disposition home or self-care (01) ==
LOC: INF 10:58
PROVIDERS: PCP Family Medicine; Visit Provider Internal Medicine Medical Oncology
DX: C44.321 Squamous cell carcinoma of skin of nose (principal); Z79.899 Other long term (current) drug therapy
CPT/HCPCS: 80053; 84443; 85025; 96413; J9119

== ENCOUNTER 2025-04-25 10:55 | Outpatient (CLI) | payer MEDICARE, MEDICAID, SELFPAY ==
[2025-04-25 10:57] VITALS: BMI 24.0
[2025-04-25 11:20] LABS: Basophils % 0.2 % (0.1-2.0); Eosinophils # 0.1 Kmm3 (0.0-0.4); Eosinophils % 1.7 % (0.1-12.0); Hematocrit 42.7 % (37.0-47.0); Hemoglobin 13.7 g/dL (12.2-16.2); Immature Granulocytes # 0.02 10^3uL; Immature Granulocytes % 0.4 %; Lymphocytes # 0.9 K/mm3 (0.7-4.5); Mean Corpuscular HGB Conc 32.1 g/dL (31.8-35.4); Mean Corpuscular Hemoglobin 31.2 pg (27.0-31.2); Mean Corpuscular Volume 97.3 fl (81-99); Mean Platelet Volume 9.4 fl (7.4-10.4); Monocytes # 0.3 K/mm3 (0.1-1.0); Monocytes % 6.6 % (1.7-9.3); Neutrophils # 3.4 K/mm3 (1.8-7.8); Neutrophils % 72.1 % (37.0-80.0); Nucleated Red Blood Cells # 0 10^3/uL; Nucleated Red Blood Cells % 0 %; Platelet Count 185 K/mm3 (142-424); Red Blood Count 4.39 M/mm3 (4.20-5.40); Red Cell Distribution Width 14.4 % (11.5-17.5); Red Cell Distribution Width-SD 51.3 fL; White Blood Count 4.7 K/mm3 (4.8-10.8)
[2025-04-25 11:29] LABS: Albumin Level 3.8 g/dl (3.5-5.0); Chloride 106 mmol/L (98-107); Potassium 4.4 mmoL/L (3.5-5.1); Sodium 139 mmol/L (136-145)
[2025-04-25 11:31] LABS: Blood Urea Nitrogen 22 mg/dl (7-17); Creatinine Clearance Estimated 47 mL/min (50-200); Estimated Glomerular Filt Rate 81 ml/min (>60); GFR (African American) 98 ML/MIN (>60)
[2025-04-25 11:32] LABS: Alanine Aminotransferase 46 U/L (12-78); Albumin/Globulin Ratio 1.2 (1.1-1.8); Alkaline Phosphatase 164 U/L (38-126); Anion Gap 9.4 mEq/L (5-15); Aspartate Amino Transferase 51 U/L (14-36); Bilirubin,Total 0.3 mg/dl (0.2-1.3); Calcium 10.8 mg/dl (8.4-10.2); Carbon Dioxide 28 mmol/L (22.0-30.0); Globulin 3.3 g/dL (1.3-3.2); Glucose 221 mg/dl (74-100); Total Protein,Serum 7.1 g/dl (6.3-8.2)
[2025-04-25 12:03] LABS: Thyroid Stimulating Hormone 2.68 uIU/mL (0.465-4.68)
[2025-04-25] MEDS: 0.9 % SODIUM CHLORIDE 50 ML 100 ML IV (12:08)
[2025-04-25] MEDS: CEMIPLIMAB-RWLC 350 MG in 0.9 % SODIUM CHLORIDE 100 ML 214 MG IV (12:09)
[2025-04-25 12:15] VITALS: BP 124/54; PULSE 54; RESP 16; TEMP 36; O2SAT 95
[2025-04-25 12:45] VITALS: BP 137/62; PULSE 61; RESP 17
--- OUTSIDE RECORDS SUMMARY | 2025-04-25 13:01 | XMS_ITS | Encounter Summary ---
Author Organization Healthcare Address [address] [place] [address] Care Team Providers Care House Wirer Name Role Phone Guillermo Dior MD Primary Care Provider [phone] Montez Vizcaino MD Unavailable [phone] Marcial Calvin MD Unavailable [phone] Encounter Details Date Type Department Care Team (Late st Contact Info) Description 05/06/2023 Community [facility] [address] [place] [address] Charlotte Navarro, BRINE MAKER [address] [place], [place] [id number] Chronic obstructive pulmonary disease, unspecified COPD type (CMS/HCC) (Primary Dx) Social History Tobacco Use Types Packs/Day Years Used Date Smoking Tobacco: Every Day Cigarettes Smokeless Tobacco: Never Alcohol Use Standard Drinks/Week Comments Not Currently 0 (1 standard drink = 0.6 oz pur e alcohol) Comments No Sex and Gender Information Value Date Recorded Sex Assigned at Not on file Legal Sex Female 8:36 PM EDT Gender Identity Not on file Sexual Orientation Not on file documented as of this encounter Plan of Treatment Not on file documented as of this encounter Visit Diagnoses Diagnosis Chronic obstructive pulmonary disease, unspecified COPD type (CMS/HCC)- Primary documented in this encounter Additional Health Concerns Infection Onset Date Last Indicated Resolved Time COVID-19 Rule-Out 04/20/2024 04/20/2024 04/20/2024 6:19 PM EDT C. difficile Rule-Out 04/21/2024 04/21/20242023 9:11 AM EDT Gastrointestinal Rule-Out 04/21/2024 04/21/2024 9:10 AM EDT ESBL Comment:Urine collected 04/22/2024 resulted positive for ESBL. This patient will require contact precautions indefinitely. Do not resolve this infection. 04/22/2024 04/22/2024 MRSA 05/03/2024 05/03/2024 documented as of this encounter Care Teams House Wirer Relationship Specialty Start Date End Date Guillermo Dior MD [address] [facility] [place] [address] PCP - General 03/27/21 Montez Vizcaino MD [address] [facility] [address] [place] [address] Referring Physician Dermatology 04/19/24 Marcial Calvin MD [address] [place] [phone] Surgeon Otolaryngology 04/19/24 documented as of this encounter
--- OUTSIDE RECORDS SUMMARY | 2025-04-25 13:01 | XMS_ITS | Clinical Summary ---
Author Organization [facility] Address [address] [place] [address] Care Team Providers Care Palliative Senior Np Name Role Phone Guillermo Dior MD Primary Care Provider [phone] Montez Vizcaino MD Unavailable [phone] Marcial Calvin MD Unavailable [phone] Allergies Active Allergy Reactions Criticality Noted Date Comments Empagliflozin Other - please docum ent in the comment field Low 01/04/2024 Metformin Diarrhea Low 02/23/2023 Medications albuterol 108 (90 Base) MCG/ACT inhaler Inhale 2 puffs every 4 (four) hours if needed for shortness of breath. 18 g 1 Active omeprazole (PriLOSEC) [address] capsule Take 1 capsule (40 mg) by mouth 1 (one) time each day. 4 Active donepezil (Aricept) 10 MG tablet Take 1 tablet (10 mg) by mouth every night. 4 Active ezetimibe (Zetia) 10 MG tablet Take 1 tablet (10 mg) by mouth 1 (one) time each day. 4 Active FLUoxetine (PROzac) 40 MG capsule Take 1 capsule (40 mg) by mouth 1 (one) time each day. 4 Active OLANZapine (ZyPREXA) 15 MG tablet Take 1 tablet (15 mg) by mouth every night. 4 Active atorvastatin (Lipitor) 80 MG tablet Take 1 tablet (80 mg) by mouth 1 (one) time each day. Active cholecalciferol (Vitamin D-3) 50 MCG (2000 UT) capsule Take 1 capsule (2,000 Units) by mouth 1 (one) time each day. Active pen needle, diabetic 31G X 5 MM misc Use as directed with insulin pen. 100 each 11 4 Active Insulin Lispro (Admelog, HumaLOG) 100 UNIT/ML injection vial Inject 0.1 mL (10 Units) under the skin 3 (three) times a day with meals. 4 Active Additional Information Patient not taking.Reported on 12/24/2024 polyethylene glycol (Miralax) 17 g packet Take 17 g by mouth 1 (one) time each day. 4 Active Additional Information Patient not taking.Reported on 12/24/2024 rOPINIRole (Requip) 0.25 MG tablet Take 1 tablet (0.25 mg) by mouth 2 (two) times a day. 4 Active gabapentin (Neurontin) 300 MG capsule Take 1 capsule (300 mg) by mouth 3 (three) times a day. 90 capsule 4 Active Trelegy Ellipta 100-62.5-25 MCG/ACT aerosol powder Inhale 1 puff 1 (one) time each day. 4 Active ferrous sulfate 325 (65 Fe) MG EC tablet Take 1 tablet (325 mg) by mouth 2 (two) times a day. Do not crush, chew, or split. Active linaGLIPtin (Tradjenta) 5 MG tablet Take 1 tablet (5 mg) by mouth 1 (one) time each day. Active insulin aspart (NovoLOG) 100 UNIT/ML injection vial Inject under the skin 3 (three) times a day before meals. Sliding scale Active Glucagon, rDNA, (Glucagon Emergency) 1 MG kit Inject 1 mg as directed if needed. Active insulin glargine (Basaglar KwikPen) 100 UNIT/ML injection pen Inject 35 Units under the skin every night. Active dapagliflozin (Farxiga) 5 MG tablet Take 1 tablet (5 mg) by mouth 1 (one) time each day. Active mupirocin (Bactroban) 2 % ointment Apply 1 Application topically 3 (three) times a day if needed. Face Lesions Active acetaminophen (Tylenol) 325 MG tablet Take 2 tablets (650 mg) by mouth every 6 (six) hours. Under [place] law, monthly prescriptions (30 days) can be refilled at 25 days and three-month prescriptions (90 days) at 80 days. Please contact the insurance company with questions if refills are denied. 100 tablet 4 Active white petrolatum (VASELINE) gel Apply 1 Application topically 2 (two) times a day. 4 Active tamsulosin (Flomax) 0.4 MG 24 hr capsule 5 Active insulin glargine-yfgn (Semglee) 100 UNIT/ML injection pen 5 Active nitrofurantoin, macrocrystal-mo nohydrate, (Macrobid) 100 MG capsule 5 Active oseltamivir (Tamiflu) 75 MG capsule 5 Active Tiotropium [place] Monohydrate (Spiriva Respimat) 2.5 MCG/ACT inhaler 0 Active HYDROcodone-kesha taminophen ([place]land) 5-325 MG tablet 5 Active hydrOXYzine HCl (Atarax) 50 MG tablet 0 Active fluticasone-manda meterol (Advair) 115-21 MCG/ACT inhaler 4 Active Fluticasone Furoate-Vilante rol (Breo Ellipta) 200-25 MCG/ACT aerosol powder 0 Active Active Problems Problem Noted Date Diagnosed Date 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 09/16/2024 Squamous cell carcinoma of eye, 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 Essential (primary) hypertension 05/14/2024 Type 2 diabetes mellitus with hyperglycemia 04/15 Generalized weakness 04/22/2024 Acute encephalopathy 04/20/2024 Vitamin D deficiency 04/20/2024 Type 2 diabetes mellitus 04/20/2024 Schizophrenia, unspecified 04/20/2024 Osteoporosis 04/20/2024 HLD (hyperlipidemia) 04/20/2024 History of restless legs syndrome 04/20/2024 Hepatitis B infection 04/20/2024 GERD (gastroesophageal reflux disease) Depression 04/20/2024 Chronic obstructive pulmonary disease, unspecifi ed 04/20/2024 Overview (04/20/2024): Mild Bipolar disorder 04/20/2024 Anxiety 04/20/2024 Alcohol dependence, in remission 04/20/2024 Overview (04/20/2024): History of alcoholism Acute cystitis without hematuria 04/20/2024 Hyperglycemia 04/20/2024 Hypophosphatemia 04/20/2024 Hypokalemia 04/20/2024 Bradycardia 04/20/2024 Skin cancer of face 04/19/2024 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 04/05/20 24 Muscle weakness (generalized) 01/09/2024 History of falling 01/04/2024 Immunizations Immunization Administration Dates Next Due Hep A, Adult 06/19/2018 Influenza, Unspecified 08/14/2018 Influenza, high-dose, quadrivalent 10/30/2021,,07/05/2017 Influenza, injectable, quadr ivalent, preservative free 07/23/2019 Pneumococcal 20-betsy Conj Vaccine 03/27/2024 Pneumococcal Conjugate PCV 13 11/19/2019 Pneumococcal Polysaccharide PPV23 12/19/2012 Family History Medical History Relation Name Comments No Known Problems Father Diabetes Mother Schizophrenia Mother Cervical cancer Sister Anesthesia problems Neg Hx Malig Hyperthermia Neg Hx Relation Name Status Comments Father Mother Sister Social History Tobacco Use Types Packs/Day Years Used Date Smoking Tobacco: Every Day Cigarettes 1 29.9 Started: 09/04/1994 Smokeless Tobacco: Never Tobacco Cessation:Ready to Q uit: Not Asked; Counseling Given: Not Answered Comments:Smokes 7 cigs/daily at facility Alcohol Use Standard Drinks/Week Comments Not Currently 0 (1 standard drink = 0.6 oz pur e alcohol) Humiliation, Afraid, Rape, and Kick questionnair e Answer Date Recorded Within the last year, have y ou been afraid of your partner or ex-partner? No 09/12/2024 Within the last year, have y ou been humiliated or emotionally abused in other ways by your partner or ex-partner? No Within the last year, have y ou been kicked, hit, slapped, or otherwise physically hurt by your partner or ex-partner? No 09/12/2024 Within the last year, have y ou been raped or forced to have any kind of sexual activity by your partner or ex-partner? No 09/12/2024 Hunger Vital Sign Answer Date Recorded Within the past 12 months, y ou worried that your food would run out before you got the money to buy more. Never true 09/12/20 24 Within the past 12 months, t he food you bought just didn't last and you didn't have money to get more. Never true 09/12/2024 PRAPARE - Transportation Answer Date Re corded In the past 12 months, has l ack of transportation kept you from medical appointments or from getting medications? No 08/16 In the past 12 months, has l ack of transportation kept you from meetings, work, or from getting things needed for daily living? No 09/12/2024 Housing Stability Vital Sign Answer Myron e Recorded In the last 12 months, was t here a time when you were not able to pay the mortgage or rent on time? No 09/12/2024 In the last 12 months, how many places have you lived? 1 09/12/2024 In the last 12 months, was t here a time when you did not have a steady place to sleep or slept in a fdc (including now)? No 09/12/2024 Utilities Answer Date Recorded In the past 12 months has th e electric, gas, oil, or water company threatened to shut off services in your home? No 09/12/2024 Comments No Sex and Gender Information Value Date Recorded Sex Assigned at Not on file Legal Sex Female 8:36 PM EDT Gender Identity Not on file Sexual Orientation Not on file Last Filed Vital Signs Vital Sign Reading Time Taken Comments Blood Pressure 106/69 12/25/2024 10:40 AM EST Pulse 55 12/25/2024 10:40 AM EST Temperature 36.7 C (98.1 F) 12/24/2024 10:24 AM EST Respiratory Rate 16 12/25/2024 10:40 AM EST Oxygen Saturation 95% 12/25/2024 10:40 AM EST Inhaled Oxygen Concentration - - Weight 61.7 kg (136 lb) 12/25/2024 10:40 AM EST Height 160 cm (5' 2.99 ) 12/24/2024 10:24 AM EST Body Mass Index 24.1 12/24/2024 10:24 AM EST Plan of Treatment Health Maintenance Due Date Last Done Comments [facility]-Bone Density Scan 1948 [facility]-Depression Screening 1948 [facility]-Hepatitis C Screening 1950 [facility]-Medicare Annual Wellness (AWV) 1950 [facility]-/Child/Adol SDOH Screenings 1948 Diabetes: Dental Exam 1958 [facility]-DTaP,Tdap,and Td Vaccines (1 - Tdap) 1967 [facility]-Zoster Vaccines (1 of 2) 1967 [facility]-Hepatitis A Vaccines (2 of 2 - Risk 2-dose series) 12/20/2018 06/19/2018 [facility]-RSV Vaccine: 60+ Years or (1 - 1-dose 75+ series) 2023 [id number] Vaccine ( season) 2024 10/30/2021, 04/29/2021, 04/08/2021 [facility]-Diabetes: Hemoglobin A1C 07/21/2024 04/21/2024, 08/05/2018 [facility]- SDOH Screenings 03/13/2025 [facility]-Adult SDOH Screenings 03/13/2025 09/12/2024 [facility]-Influenza Vaccine (Season Ended) 2025 10/30/2021, 09/26/2020, 07/23/2019, Additional history exists [facility]-Breast Cancer Screening Discontinued 03/17/2021, 01/27/2021, 01/27/2021 [facility]-Pneumococcal Vaccine: 50+ Years Completed 03/27/2024, 11/19/2019, 12/19/2012 [facility]-Lung Cancer Screening Discontinued 12/24/2024, HPV Vaccines Aged Out No longer eligi ble based on patient's age to complete this topic [facility]-HIB Vaccines Aged Out No longer e ligible based on patient's age to complete this topic [facility]-IPV Vaccines Aged Out No longer e ligible based on patient's age to complete this topic [facility]-Rotavirus Vaccines Aged Out No lo nger eligible based on patient's age to complete this topic Procedures Procedure Name Priority Date/Time Associated Diagnosis Comments CT CHEST W IV CONTRAST Routine 12/24/2024 9:44 AM EST Squamous cell carcinoma of eye, right (CMS/HCC) HEMOGLOBIN A1C Add-On 04/21/2024 3:16 AM EDT from Last 3 Months or Most Recently Relevant to Health Maintenance Results * CT Chest w IV Contrast (12/24/2024 9:44 AM EST) Anatomical Region Laterality Modality Chest Computed Tomogra phy Impressions 12/24/2024 10:46 AM EST A right upper lobe masslike consolidation with central cavitation in the area of previously seen hypermetabolic pulmonary nodule is likely posttreatment change. Possible residual viable disease cannot be assessed on this exam. No new suspicious nodules. CRITICAL RESULT: No. COMMUNICATION: Per this written report. Drafted by Jackelyn Mcgarry MD on 12/24/2024 10:20 AM Final report signed by Jackelyn Mcgarry MD on 12/24/2024 10:46 AM Narrative 12/24/2024 10:46 AM EST CLINICAL INDICATION: Non-small cell lung cancer (NSCLC), metastatic, assess treatment response TECHNIQUE: Imaging of the chest was performed, from thoracic inlet through upper abdomen, using spiral technique, following administration of IV contrast, Omnipaque 300, 100 mL according to the [address] Chest protocol. Total DLP (Dose-Length Product): 85.94 mGy.cm. Please note: The reported value represents the total of one or more individual components during the CT acquisition on this date and at this time, and as such, the same value may appear in more than one CT report depending on the interpreting/reporting physicians. COMPARISON: PET/CT from 07/23/2024 FINDINGS: Chest: Aorta/Vessels: The thoracic aorta and coronary arteries are diffusely atherosclerotic. No large central filling defect within the pulmonary arteries to suggest pulmonary embolism. Pleural/Pericardial Space: No pneumothorax. No pleural effusions. No pericardial effusion. Lymph Nodes: No lymphadenopathy within the chest. Lungs: Debris in the trachea and bilateral bronchi is concerning for aspiration. A masslike consolidation in the right upper lobe periphery of the central cavitation in the area of previously seen hypermetabolic pulmonary nodule is probably a posttreatment change. Possible residual viable disease cannot be assessed on this exam. No new suspicious nodules. A punctate left apical nodule is stable (series 2 image 12). Mediastinum: Focal soft tissue wall thickening of the mid trachea on the right (series 2 image 26) is a new finding Chest Wall: No chest wall hematoma or contusion. Bones: No acute fracture within the chest. Upper Abdomen: Multiple gallstones. Hepatic surface nodularity consistent with cirrhosis. Procedure Note Jackelyn Mcgarry MD - 12/24/2024 CLINICAL INDICATION: Non-small cell lung cancer (NSCLC), metastatic, assess treatmentresponse TECHNIQUE: Imaging of the chest was performed, from thoracic inlet through upperabdomen, using spiral technique, following administration of IV contrast,Omnipaque 300, [address] mL [address] Chest protocol. Total DLP (Dose-Length Product): 85.94 mGy.cm. Please note: The reportedvalue represents the total of one or more individual components during theCT acquisition on this date and at this time, and as such, the same valuemay appear in more than one CT report depending on theinterpreting/reporting physicians. COMPARISON: PET/CT from 07/23/2024 FINDINGS: Chest: Aorta/Vessels: The thoracic aorta and coronary arteries are diffuselyatherosclerotic. No large central filling defect within the pulmonaryarteries to suggest pulmonary embolism. Pleural/Pericardial Space: No pneumothorax. No pleural effusions. Nopericardial effusion. Lymph Nodes: No lymphadenopathy within the chest. Lungs: Debris in the trachea and bilateral bronchi is concerning foraspiration. A masslike consolidation in the right upper lobe periphery ofthe central cavitation in the area of previously seen hypermetabolicpulmonary nodule is probably a posttreatment change. Possible residualviable disease cannot be assessed on this exam. No new suspicious nodules.A punctate left apical nodule is stable (series 2 image 12). Mediastinum: Focal soft tissue wall thickening of the mid trachea on theright (series 2 image 26) is a new finding Chest Wall: No chest wall hematoma or contusion. Bones: No acute fracture within the chest. Upper Abdomen: Multiple gallstones. Hepatic surface nodularity consistentwith cirrhosis. IMPRESSION: A right upper lobe masslike consolidation with central cavitation in thearea of previously seen hypermetabolic pulmonary nodule is likelyposttreatment change. Possible residual viable disease cannot be assessedon this exam. No new suspicious nodules. CRITICAL RESULT: No. COMMUNICATION: Per this written report. Drafted by Jackelyn Mcgarry MD on 12/24/2024 10:20 AM Final report signed by Jackelyn Mcgarry MD on 12/24/2024 10:46 AM Lyndsey Lopez UNDERGROUND MINING SECTION FOREMAN, DNP IMG CT PROCEDURES Final Result * (ABNORMAL) Hemoglobin A1c (04/21/2024 3:16 AM EDT) Hemoglobin A1c 10.5(H) <5.7 % 04/21/2024 12:02 PM EDT [facility] Blood Venous blood specimen / Unknown Venipuncture / Unknown 04/21/2024 3:16 AM EDT 04/21/2024 3:40 AM EDT Narrative [facility] - 04/21/2024 12:02 PM EDT HA1C Interpretive Data: Diagnosis of Diabetes: Diabetic > or = 6.5% Pre-diabetic 5.7 to 6.4% Non-diabetic < or = 5.6% Glycemic Targets for Type I and Type II Diabetics: Non- Adults <7.0% Adults <6.0% Children and Adolescents <7.5% Source: [place] [employer]. Standards of medical care in diabetes,2017. Diabetes Care.2017:40 (suppl 1):S1-S135. HbA1c assay performed by an ion-exchange chromatography method that is certified traceable to the DCCT. Celestina Dumas DO LAB BLOOD ORDERABLES Fin al Result [facility] [address] [place] [address] from Last 3 Months or Most Recently Relevant to Health Maintenance Additional Health Concerns Infection Onset Date Last Indicated ESBL Comment:Urine collected 04/22/2024 resulted positive for ESBL. This patient will require contact precautions indefinitely. Do not resolve this infection. 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 Yes * Full Code Date Activated Date Inactivated Comments 04/21/2024 5:08 PM 05/09/2024 3:49 PM Question Answer Comments Patient has decision-making capacity? Yes Care Teams Palliative Senior Np Relationship Specialty Start Date End Date Guillermo Dior MD [address] [place] [address] PCP - General 03/27/21 Montez Vizcaino MD [address] [address] Referring Physician Dermatology 04/19/24 Marcial Calvin MD [address] [place] [phone] Surgeon Otolaryngology 04/19/24
--- OUTSIDE RECORDS SUMMARY | 2025-04-25 13:01 | XMS_ITS | Encounter Summary ---
Author Organization Healthcare Address [address] [place] [address] Care Team Providers Care Nuts And Bolts Assembler Name Role Phone Guillermo Dior MD Primary Care Provider [phone] Montez Vizcaino MD Unavailable [phone] Marcial Calvin MD Unavailable [phone] Reason for Referral * Consultation (Routine) - Closed Specialty Diagnoses / Procedures Referred By Sharita spencer Referred To Contact Plastic Surgery Diagnoses Basal cell carcinoma (BCC), unspecified site Ashlyn Donahue APRN [address] [place] [address] Phone: tel: fax: Referral ID Status Reason Start Date Expiration Date V isits Requested Visits Authorized [id number] Closed Specialty Services Required 03/29/2024 09/28/2025 1 1 Encounter Details Date Type Department Care Team (Late st Contact Info) Description 03/29/2024 Community [facility] [address] [place] [address] Ashlyn Donahue APRN [address] [place] [address] Basal cell carcinoma (BCC), unspecified site (Primary Dx) Social History Tobacco Use Types [...] as of this encounter Plan of Treatment Scheduled Referrals Name Type Priority Associated Diagnoses Orde r Schedule Ambulatory Referral to Plastic Surgery Outpatient Referral Routine Basal cell carcinoma (BCC), unspecified site Expected: 03/29/2024 (Approximate), Expires: 03/29/2025 documented as of this encounter Visit Diagnoses Diagnosis Basal cell carcinoma (BCC), unspecified site- Primary documented in this encounter Additional Health [...] documented as of this encounter Care Teams Nuts And Bolts Assembler Relationship Specialty Start Date End Date Guillermo Dior MD [address] [facility] [place] [address] PCP - General 03/27/21 Montez Vizcaino MD [address] [facility] [address] [place] [address] Referring Physician Dermatology 04/19/24 Marcial Calvin MD [address] [place] [phone] Surgeon Otolaryngology 04/19/24 documented as of this encounter
--- OUTSIDE RECORDS SUMMARY | 2025-04-25 13:01 | XMS_ITS ---
Author Organization [facility] Address [address] [place] [address] Care Team Providers Care Car Body Inspector Name Role Phone Guillermo Dior MD Primary Care Provider [phone] Montez Vizcaino MD Unavailable [phone] Marcial Calvin MD Unavailable [phone] Active Problems Problem Noted Date Diagnosed Date [...] weakness (generalized) 01/09/2024 History of falling 01/04/2024 Current Treatment and Therapy Plans No current plan information found. Past Treatment and Therapy Plans No past plan information found. Past Radiation Episodes * SBRT: Right LungOverview* First Treatment Date Last Treatment Date Treatment Site Technique Goal Episode Provider 09/20/2024 09/26/2024 Right Lung SBRT Control Treatment Courses* Course C1 09/20/2024 - 09/26/2024 Treatment Period Fraction Dose Fractions Total Dose Plans Planned [id number] 09/20/2024 - 09/26/2024 400 cGy 5 / 5 2 ,000 cGy Reference Points Delivered Right Lung 09/20/2024 - 09/26/2024 2,000 cGy Lifetime Dose Tracking * Chemical Lifetime Dose Automatic Entry Manual Entr y Radiation (DLP) Retired 940 mGy-cm. 940 mGy-cm. 0 mG y-cm. CTDIvol 128 mGy 128 mGy 0 mGy
--- OUTSIDE RECORDS SUMMARY | 2025-04-25 13:02 | XMS_ITS | Clinical Summary ---
Author Organization [facility] Address [address] [place] [address] Phone Care Team Providers Care Deputy Sheriff Generalist Name Role Phone Unavailable Primary Care Provider Unavailabl e Allergies No known active allergies Medications * This document contains information received from the source organization and may not represent a complete record from that organization. OLANZapine (ZYPREXA) 15 mg Oral TabletIndicati ons:schizophre avelino Take 15 mg by mouth nightly. Indications: schizophrenia Active donepeziL (ARICEPT) 10 mg Oral Tablet Take 10 mg by mouth nightly. Active FLUoxetine (PROZAC) 40 mg Oral CapsuleIndicat ions:anxiety with depression Take 40 mg by mouth daily. 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 Social History Tobacco Use Types Packs/Day Years Used Date Smoking Tobacco: Never Assessed Alcohol Use Standard Drinks/Week Comments Not Currently 0 (1 standard drink = 0.6 oz pur e alcohol) Comments Unknown Sex and Gender Information Value Date Recorded Sex Assigned at Not on file Legal Sex Female 8:53 AM EDT Gender Identity Not on file Sexual Orientation Not on file Obstetrics History Plan of Treatment Health Maintenance Due Date Last Done Comments Wellness Exam Medicare 1953 Hepatitis C Screening 1966 DTaP/TDaP/Td (1 - Tdap) 1967 Pneumococcal Vaccine 50+ (1 of 1 - PCV) 1998 Zoster (1 of 2) 1998 Bone Density Screening 2013 RSV or 60+ (1 - 1-d ose 75+ series) 2023 COVID-19 Vaccine ( - 2023-2 5 season) 2024 Influenza Vaccine (Season Ended) 2025 Hepatitis B Vaccine Aged Out No longe r eligible based on patient's age to complete this topic Meningococcal B Vaccine Aged Out No l onger eligible based on patient's age to complete this topic Insurance MEDICAID [facility] DUAL ACCESS O D-SNP [place] [address]
== END 2025-04-25 13:00 | disposition home or self-care (01) ==
LOC: INF 10:56
PROVIDERS: PCP Family Medicine; Visit Provider Internal Medicine Medical Oncology
DX: C44.321 Squamous cell carcinoma of skin of nose (principal); Z79.899 Other long term (current) drug therapy
CPT/HCPCS: 80053; 84443; 85025; 96413; J9119

== ENCOUNTER 2025-05-16 09:23 | Outpatient (CLI) | payer MEDICARE, MEDICAID, SELFPAY ==
--- OUTSIDE RECORDS SUMMARY | 2025-05-16 09:27 | XMS_ITS | Encounter Summary ---
Author Organization Healthcare Address [address] [place] [address] Care Team Providers Care Director Private Name Role Phone Guillermo Dior MD Primary Care Provider [phone] Montez Vizcaino MD Unavailable [phone] Marcial Calvin MD Unavailable [phone] Encounter Details Date Type Department Care Team (Late st Contact Info) Description 05/06/2023 Community [facility] Community Practice [address] [place] [address] Charlotte Navarro, OUTSOLE COMPRESSOR [address] [place], [place] [id number] Chronic obstructive pulmonary disease, unspecified COPD type [...] documented as of this encounter Care Teams Director Private Relationship Specialty Start Date End Date Guillermo Dior MD [address] [place] [address] PCP - General 03/27/21 Montez Vizcaino MD [address] [facility] [address] [place] [address] Referring Physician Dermatology 04/19/24 Marcial Calvin MD [address] [place] [phone] Surgeon Otolaryngology 04/19/24 documented as of this encounter
--- OUTSIDE RECORDS SUMMARY | 2025-05-16 09:27 | XMS_ITS | Encounter Summary ---
Author Organization Healthcare Address [address] [place] [address] Care Team Providers Care Lead Portfolio Manager Name Role Phone Guillermo Dior MD Primary Care Provider [phone] Montez Vizcaino MD Unavailable [phone] Marcial Calvin MD Unavailable [phone] Reason for Referral * Consultation (Routine) - Closed Specialty Diagnoses / Procedures Referred By Sharita spencer Referred To Contact Plastic Surgery Diagnoses Basal cell carcinoma (BCC), unspecified site Ashlyn Donahue APRN [address] [place] [address] Phone: tel: fax: Referral ID Status Reason Start Date Expiration Date V isits Requested Visits Authorized [id number] Closed Specialty Services Required 03/29/2024 09/28/2025 1 1 Encounter Details Date Type Department Care Team (Late st Contact Info) Description 03/29/2024 Community [facility] Community Practice [address] [place] [address] Ashlyn Donahue APRN [address] [place] [address] Basal cell carcinoma (BCC), unspecified site (Primary [...] documented as of this encounter Care Teams Lead Portfolio Manager Relationship Specialty Start Date End Date Guillermo Dior MD 6 [facility] [place] [address] PCP - General 03/27/21 Montez Vizcaino MD 989 [facility] [address] [place] [address] Referring Physician Dermatology 04/19/24 Marcial Calvin MD [address] [place] [phone] Surgeon Otolaryngology 04/19/24 documented as of this encounter
[2025-05-16 09:28] VITALS: BMI 24.0
--- OUTSIDE RECORDS SUMMARY | 2025-05-16 09:28 | XMS_ITS | Clinical Summary ---
Author Organization [facility] Address [address] [place] [address] Care Team Providers Care Livestock Farmer Name Role Phone Guillermo Dior MD Primary Care Provider [phone] Montez Vizcaino MD Unavailable [phone] Marcial Calvin MD Unavailable [phone] Allergies Active Allergy Reactions Criticality Noted [...] by mouth every 6 (six) hours. Under [place] law, monthly prescriptions (30 days) can be [...] (Tamiflu) 75 MG capsule 5 Active Tiotropium [place] Monohydrate (Spiriva Respimat) 2.5 MCG/ACT inhaler 0 Active HYDROcodone-kesha taminophen ([place]) 5-325 MG tablet 5 Active hydrOXYzine HCl [...] place to sleep or slept in a long term (including now)? No 09/12/2024 Utilities Answer Date [...] Screening 1950 [facility]-Medicare Annual Wellness (AWV) 1948 [facility]-Infant/Child/Adol SDOH Screenings 1948 Diabetes: Dental Exam 1958 [facility]-DTaP,Tdap,and Td Vaccines (1 - Tdap) 1967 [facility]-Zoster Vaccines (1 of 2) 1967 [facility]-Hepatitis A Vaccines (2 of 2 - Risk 2-dose series) 12/20/2018 06/19/2018 [facility]-RSV Vaccine: 60+ Years or (1 - 1-dose 75+ series) 2023 [id number] Vaccine ( - season) 2024 10/30/2021, 04/29/2021, 04/08/2021 [facility]-Diabetes: Hemoglobin A1C 07/21/2024 04/21/2024, 08/05/2018 [facility]- SDOH Screenings 03/13/2025 [facility]-Adult SDOH Screenings 03/13/2025 09/12/2024 [facility]-Influenza Vaccine (#1) 07/15/202510/30, 09/26/2020, 07/23/2019, Additional history exists [facility]-Breast Cancer [...] MD on 12/24/2024 10:46 AM Lyndsey Lopez FISHER POUND NET OR TRAP, DNP IMG CT PROCEDURES Final Result * [...] Adults <6.0% Children and Adolescents <7.5% Source: [place] [employer]. Standards of medical care in diabetes,2017. Diabetes Care.2017:40 (suppl 1):S1-S135. HbA1c assay performed by an ion-exchange chromatography method that is certified traceable to the DCCT. Celestina Dumas DO LAB BLOOD ORDERABLES Fin al Result [facility] [address] [place] [address] from Last 3 Months or Most Recently Relevant to Health Maintenance Additional Health Concerns Infection Onset Date Last Indicated ESBL Comment:Urine collected 04/22/2024 resulted positive for ESBL. This patient will require contact precautions indefinitely. Do not resolve this infection. 04/22/2024 4 MRSA 05/03/2024 05/03/2024 Insurance WELLCARE MEDICARE PASSPORT MEDICAID [place] Advance Directives Documents on File Type Date Recorded Patient Collections Technician Expl anation Advance Directives and Livin g Will 09/12/2024 6:41 AM * Full Code (Latest Code Status on File) Date Activated Date Inactivated Comments 09/11/2024 6:45 PM 09/27/2024 5:30 PM Question Answer Comments Patient has decision-making capacity? Yes * Full Code Date Activated Date Inactivated Comments 04/21/2024 5:08 PM 05/09/2024 3:49 PM Question Answer Comments Patient has decision-making capacity? Yes Care Teams Livestock Farmer Relationship Specialty Start Date End Date Guillermo Dior MD [address] [facility] [place] [address] PCP - General 03/27/21 Montez Vizcaino MD [address] [address] Referring Physician Dermatology 04/19/24 Marcial Calvin MD [address] [place] [phone] Surgeon Otolaryngology 04/19/24
--- OUTSIDE RECORDS SUMMARY | 2025-05-16 09:28 | XMS_ITS ---
Author Organization [facility] Address [address] [place] [address] Care Team Providers Care Auto Body Mechanic Name Role Phone Guillermo Dior MD Primary Care Provider [phone] Montez Vizcaino MD Unavailable [phone] Marcial Calvin MD Unavailable [phone] Active Problems Problem Noted Date Diagnosed [...] Lifetime Dose Automatic Entry Manual Entr y CTDIvol 128 mGy 128 mGy 0 mGy Radiation (DLP) 940 mGy-cm 940 mGy-cm 0 mGy-cm
--- OUTSIDE RECORDS SUMMARY | 2025-05-16 09:28 | XMS_ITS | Clinical Summary ---
Author Organization [facility] Address [address] [place] [address] Phone Care Team Providers Care Fish Processor Name Role Phone Unavailable Primary Care Provider [...] 1-d ose 75+ series) 2023 COVID-19 Vaccine (1 - 2023-2 5 season) 2024 Influenza Vaccine (#1) 2025 Hepatitis B Vaccine Aged Out No longe r eligible based on patient's age to complete this topic Meningococcal B Vaccine Aged Out No l onger eligible based on patient's age to complete this topic Insurance MEDICAID [place] [facility] DUAL ACCESS [place] D-SNP [place] [address]
[2025-05-16 09:46] LABS: Hematocrit 41.2 % (37.0-47.0); Hemoglobin 13.7 g/dL (12.2-16.2); Immature Granulocytes % 0.2 %; Mean Corpuscular HGB Conc 33.3 g/dL (31.8-35.4); Mean Corpuscular Hemoglobin 31.9 pg (27.0-31.2); Mean Corpuscular Volume 95.8 fl (81-99); Nucleated Red Blood Cells % 0 %; Platelet Count 167 K/mm3 (142-424); Red Blood Count 4.30 M/mm3 (4.20-5.40); Red Cell Distribution Width-SD 49.2 fL; White Blood Count 4.0 K/mm3 (4.8-10.8)
[2025-05-16 11:11] LABS: Chloride 103 mmol/L (98-107)
[2025-05-16 11:12] LABS: Albumin Level 4.2 g/dl (3.5-5.0); Potassium 4.1 mmoL/L (3.5-5.1); Sodium 139 mmol/L (136-145)
[2025-05-16 11:14] LABS: Blood Urea Nitrogen 18 mg/dl (7-17); Creatinine Clearance Estimated 47 mL/min (50-200); Creatinine,Serum 0.60 mg/dl (0.52-1.04); Estimated Glomerular Filt Rate 97 ml/min (>60); GFR (African American) 118 ML/MIN (>60)
[2025-05-16 11:15] LABS: Alanine Aminotransferase 26 U/L (12-78); Albumin/Globulin Ratio 1.2 (1.1-1.8); Alkaline Phosphatase 157 U/L (38-126); Anion Gap 16.1 mEq/L (5-15); Aspartate Amino Transferase 30 U/L (14-36); Bilirubin,Total 0.5 mg/dl (0.2-1.3); Calcium 9.7 mg/dl (8.4-10.2); Carbon Dioxide 24 mmol/L (22.0-30.0); Globulin 3.4 g/dL (1.3-3.2); Glucose 277 mg/dl (74-100); Total Protein,Serum 7.6 g/dl (6.3-8.2)
[2025-05-16 11:46] LABS: Thyroid Stimulating Hormone 2.40 uIU/mL (0.465-4.68)
[2025-05-16] MEDS: CEMIPLIMAB-RWLC 350 MG in 0.9 % SODIUM CHLORIDE 100 ML 214 MG IV (11:53)
[2025-05-16 12:00] VITALS: BP 130/72; PULSE 70; RESP 18; TEMP 36.6; O2SAT 99
[2025-05-16 12:33] VITALS: BP 131/70; PULSE 72
== END 2025-05-16 12:40 | disposition home or self-care (01) ==
LOC: INF 09:26
PROVIDERS: PCP Family Medicine; Visit Provider Internal Medicine Medical Oncology
DX: Z51.11 Encounter for antineoplastic chemotherapy (principal); C44.321 Squamous cell carcinoma of skin of nose; Z79.899 Other long term (current) drug therapy
CPT/HCPCS: 80053; 84443; 85025; 96413; J9119

== ENCOUNTER 2025-05-31 09:51 | Outpatient (CLI) | payer MEDICARE, MEDICAID, SELFPAY ==
[2025-05-31 08:00] LABS: Hematocrit 39.2 % (37.0-47.0); Hemoglobin 12.3 g/dL (12.2-16.2); Immature Granulocytes % 0.4 %; Mean Corpuscular HGB Conc 31.4 g/dL (31.8-35.4); Mean Corpuscular Hemoglobin 30.2 pg (27.0-31.2); Mean Corpuscular Volume 96.3 fl (81-99); Nucleated Red Blood Cells % 0 %; Platelet Count 191 K/mm3 (142-424); Red Blood Count 4.07 M/mm3 (4.20-5.40); Red Cell Distribution Width-SD 49.2 fL; White Blood Count 4.8 K/mm3 (4.8-10.8)
[2025-05-31 08:31] LABS: Alanine Aminotransferase 14 U/L (12-78); Albumin Level 3.4 g/dl (3.5-5.0); Albumin/Globulin Ratio 1.2 (1.1-1.8); Alkaline Phosphatase 153 U/L (38-126); Anion Gap 15.8 mEq/L (5-15); Aspartate Amino Transferase 20 U/L (14-36); Bilirubin,Total 0.7 mg/dl (0.2-1.3); Blood Urea Nitrogen 21 mg/dl (7-17); Calcium 9.5 mg/dl (8.4-10.2); Carbon Dioxide 27 mmol/L (22.0-30.0); Chloride 100 mmol/L (98-107); Cholesterol 81 mg/dl (140-200); Creatinine,Serum 0.70 mg/dl (0.52-1.04); Estimated Glomerular Filt Rate 81 ml/min (>60); GFR (African American) 98 ML/MIN (>60); Globulin 2.8 g/dL (1.3-3.2); Glucose 83 mg/dl (74-100); HDL Cholesterol 26 mg/dl (40-60); Potassium 3.8 mmoL/L (3.5-5.1); Sodium 139 mmol/L (136-145); Total Protein,Serum 6.2 g/dl (6.3-8.2); Triglycerides 107 mg/dl (30-150)
[2025-05-31 09:28] LABS: Hemoglobin A1C 8.7 % (4.0-6.0)
--- OUTSIDE RECORDS SUMMARY | 2025-05-31 09:57 | XMS_ITS | Clinical Summary ---
Author Organization [facility] Address [address] [place] [address] Care Team Providers Care Printing Roller Handler Name Role Phone Guillermo Dior MD Primary Care Provider [phone] Montez Vizcaino MD Unavailable [phone] Marcial Calvin MD Unavailable [phone] Allergies Active Allergy Reactions Criticality Noted [...] by mouth every 6 (six) hours. Under [place] law, monthly prescriptions (30 days) can be [...] (Tamiflu) 75 MG capsule 5 Active Tiotropium [place] Monohydrate (Spiriva Respimat) 2.5 MCG/ACT inhaler 0 Active HYDROcodone-kesha taminophen ([place]) 5-325 MG tablet 5 Active hydrOXYzine HCl [...] or (1 - 1-dose 75+ series) 2023 [id number]-25 Vaccine ( - season) 2024 10/30/2021, 04/29/2021, [...] MD on 12/24/2024 10:46 AM Lyndsey Lopez BATCH HEAT TREAT OPERATOR, DNP IMG CT PROCEDURES Final Result * [...] Adults <6.0% Children and Adolescents <7.5% Source: [place] Diabetes [employer]. Standards of medical care in diabetes,2017. Diabetes Care.2017:40 (suppl 1):S1-S135. HbA1c assay performed by an ion-exchange chromatography method that is certified traceable to the DCCT. Celestina Dumas DO LAB BLOOD ORDERABLES Fin al Result [facility] [address] [place] [address] from Last 3 Months or Most Recently Relevant to Health Maintenance Additional Health Concerns Infection Onset Date Last Indicated ESBL Comment:Urine collected 04/22/2024 resulted positive for ESBL. This patient will require contact precautions indefinitely. Do not resolve this infection. 04/22/2024 4 MRSA 05/03/2024 05/03/2024 Insurance WELLCARE MEDICARE PASSPORT MEDICAID [place] Advance Directives Documents on File Type Date Recorded Patient Belt Splicer Expl anation Advance Directives and Livin g Will 09/12/2024 6:41 AM * Full Code (Latest Code Status on File) Date Activated Date Inactivated Comments 09/11/2024 6:45 PM 09/27/2024 5:30 PM Question Answer Comments Patient has decision-making capacity? Yes * Full Code Date Activated Date Inactivated Comments 04/21/2024 5:08 PM 05/09/2024 3:49 PM Question Answer Comments Patient has decision-making capacity? Yes Care Teams Printing Roller Handler Relationship Specialty Start Date End Date Guillermo Dior MD [address] [facility] [place] [address] PCP - General 03/27/21 Montez Vizcaino MD [address] [address] Referring Physician Dermatology 04/19/24 Marcial Calvin MD [address] [place] [phone] Surgeon Otolaryngology 04/19/24
--- OUTSIDE RECORDS SUMMARY | 2025-05-31 09:57 | XMS_ITS ---
Author Organization [facility] Address [address] [place] [address] Care Team Providers Care Sharepoint Solutions Architect Name Role Phone Guillermo Dior MD Primary Care Provider [phone] Montez Vizcaino MD Unavailable [phone] Marcial Calvin MD Unavailable [phone] Active Problems Problem Noted Date Diagnosed [...]
--- OUTSIDE RECORDS SUMMARY | 2025-05-31 09:57 | XMS_ITS | Encounter Summary ---
Author Organization Healthcare Address [address] [place] [address] Care Team Providers Care Cable Stretcher And Tester Name Role Phone Guillermo Dior MD Primary Care Provider [phone] Montez Vizcaino MD Unavailable [phone] Marcial Calvin MD Unavailable [phone] Encounter Details Date Type Department Care Team (Late st Contact Info) Description 05/06/2023 Community [facility] Community Practice [address] [place] [address] Charlotte Navarro, EQUITY MANAGER [address] [place], [place] [id number] Chronic obstructive pulmonary disease, unspecified COPD type [...] documented as of this encounter Care Teams Cable Stretcher And Tester Relationship Specialty Start Date End Date Guillermo Dior MD [address] [facility] [place] [address] PCP - General 03/27/21 Montez Vizcaino MD 989 [facility] [address] [place] [address] Referring Physician Dermatology 04/19/24 Marcial Calvin MD [address] [place] [phone] Surgeon Otolaryngology 04/19/24 documented as of this encounter
--- OUTSIDE RECORDS SUMMARY | 2025-05-31 09:57 | XMS_ITS | Encounter Summary ---
Author Organization Healthcare Address [address] [place] [address] Care Team Providers Care Care Mgr Name Role Phone Guillermo Dior MD Primary Care Provider [phone] Montez Vizcaino MD Unavailable [phone] Marcial Calvin MD Unavailable [phone] Reason for Referral * Consultation (Routine) - Closed Specialty Diagnoses / Procedures Referred By Sahrita spencer Referred To Contact Plastic Surgery Diagnoses Basal cell carcinoma (BCC), unspecified site Ashlyn Donahue APRN [address] [place] [address] Phone: tel: fax: Referral ID Status Reason Start Date Expiration Date V isits Requested Visits Authorized [id number] Closed Specialty Services Required 03/29/2024 09/28/2025 1 1 Encounter Details Date Type Department Care Team (Late st Contact Info) Description 03/29/2024 Community [facility] Community Practice [address] [place] [address] Ashlyn Donahue APRN [address] [place] [address] Basal cell carcinoma (BCC), unspecified site (Primary [...] documented as of this encounter Care Teams Care Mgr Relationship Specialty Start Date End Date Guillermo Dior MD 6 [facility] [place] [address] PCP - General 03/27/21 Montez Vizcaino MD 989 [facility] [address] [place] [address] Referring Physician Dermatology 04/19/24 Marcial Calvin MD [address] [place] [phone] Surgeon Otolaryngology 04/19/24 documented as of this encounter
--- OUTSIDE RECORDS SUMMARY | 2025-05-31 09:57 | XMS_ITS | Clinical Summary ---
Author Organization [facility] Address [address] [place] [address] Phone Care Team Providers Care Insurance Law Specialist Name Role Phone Unavailable Primary Care Provider [...] to complete this topic Insurance [place] [facility] DUAL ACCESS [place] D-[place] [address]
--- NOTE | 2025-05-31 10:15 | CT_ITS ---
FINAL REPORT TECHNIQUE: Axial CT with contrast with 3-D MIP reconstruction This study was performed with techniques to keep radiation doses as low as reasonably achievable, (ALARA). Individualized dose reduction techniques using automated exposure control or adjustment of mA and/or kV according to the patient's size were employed. CLINICAL HISTORY: squamous cell carcinoma COMPARISON: None FINDINGS: CT CHEST WITH CONTRAST: Pulmonary vessels enhance in normal fashion without evidence of embolism. Thoracic aorta shows no dissection or aneurysm. There is a cavitary right upper lobe mass, peripheral, measuring 29 x 31 mm in size. There is a relatively large area of pleural contact, which makes pleural invasion likely. There is bibasilar atelectasis, mild. No other pulmonary lesion is identified. There is borderline subcarinal adenopathy, 21 x 9 mm in size. No hilar or other enlarged adenopathy. No pleural effusion is identified. IMPRESSION: 1. Dominant right upper lobe cavitary mass compatible with reported lung carcinoma. 2. Borderline subcarinal adenopathy, otherwise no findings of metastatic adenopathy. Reviewed, Interpreted and Dictated by Yas Klein MD Transcribed by Sandra Calderon Authenticated and . [facility]
--- NOTE | 2025-05-31 10:15 | CT_ITS ---
FINAL REPORT TECHNIQUE: IV contrast enhanced exam This study was performed with techniques to keep radiation doses as low as reasonably achievable, (ALARA). Individualized dose reduction techniques using automated exposure control or adjustment of mA and/or kV according to the patient's size were employed. CLINICAL HISTORY: squamous cell carcinoma COMPARISON: None FINDINGS: CT ABDOMEN PELVIS WITH CONTRAST: Abdomen: The gallbladder contains multiple gallstones. Liver demonstrates fatty infiltration. The spleen, pancreas and adrenal glands are unremarkable. Kidneys show no mass or obstruction. Fluid-filled loops of small bowel are identified, nonspecific, that may represent an ileus or enteritis. Pelvis: The appendix is not visualized, however no secondary signs of appendicitis are identified. There is abnormal retained fluid in the uterine cavity, with a small air bubble present. The uterine cavity is distended measuring up to 36 mm in size, that is suggestive of lower uterine or cervical obstruction. This may represent pyometra or obstruction from cervical abnormality. The bladder is unremarkable. No adenopathy is identified. IMPRESSION: 1. No evidence of metastatic disease. 2. Uterine cavity is distended as described above, which may represent pyometria or obstruction of the cervical canal. Reviewed, Interpreted and Dictated by Yas Klein MD Transcribed by Sandra Calderon Authenticated and [facility]
[2025-05-31] MEDS: SODIUM CHLORIDE 0.9% 10ML SYR (RAD ONLY) 10 ML IV (10:24)
[2025-05-31] MEDS: IOPAMIDOL-370 (76%);100ML BOTTLE 150 ML IV (10:24)
== END 2025-05-31 23:59 | disposition home or self-care (01) ==
LOC: RAD 09:52
PROVIDERS: PCP Family Medicine; Visit Provider Internal Medicine Medical Oncology
DX: C44.321 Squamous cell carcinoma of skin of nose (principal); C78.01 Secondary malignant neoplasm of right lung; R93.89 Abnormal findings on diagnostic imaging of other specified body structures; E11.9 Type 2 diabetes mellitus without complications; J44.9 Chronic obstructive pulmonary disease, unspecified
CPT/HCPCS: 36415; 71260; 74177; 80053; 80061; 83036; 85025; Q9967

== ENCOUNTER 2025-06-06 09:52 | Outpatient (CLI) | payer MEDICARE, MEDICAID, SELFPAY ==
--- OUTSIDE RECORDS SUMMARY | 2025-06-06 09:57 | XMS_ITS | Clinical Summary ---
Author Organization [facility] Address [address] [place] [address] Phone Care Team Providers Care Event Attendant Name Role Phone Unavailable Primary Care Provider [...] D-SNP [place] [address]
--- OUTSIDE RECORDS SUMMARY | 2025-06-06 09:57 | XMS_ITS | Clinical Summary ---
Author Organization [facility] Address [address] [place] [address] Care Team Providers Care Gas Meter Repairer Name Role Phone Guillermo Dior MD Primary Care Provider Montez Vizcaino MD Unavailable [phone] Marcial Calvin MD Unavailable [phone] Allergies Active Allergy Reactions Criticality Noted [...] (Tamiflu) 75 MG capsule 5 Active Tiotropium [place] Monohydrate (Spiriva Respimat) 2.5 MCG/ACT inhaler 0 Active HYDROcodone-kesha taminophen ([place]) 5-325 MG tablet 5 Active hydrOXYzine HCl [...] place to sleep or slept in a alf (including now)? No 09/12/2024 Utilities Answer Date [...] or (1 - 1-dose 75+ series) 2023 [id number] Vaccine ( - season) 2024 10/30/2021, 04/29/2021, [...] MD on 12/24/2024 10:46 AM Lyndsey Lopez LIGHT BULB REPLACER, DNP IMG CT PROCEDURES Final Result * [...] Adults <6.0% Children and Adolescents <7.5% Source: [place] Diabetes Association. Standards of medical care in diabetes,2017. Diabetes Care.2017:40 (suppl 1):S1-S135. HbA1c assay performed by an ion-exchange chromatography method that is certified traceable to the DCCT. Celestina Dumas DO LAB BLOOD ORDERABLES Fin al Result [facility] [address] [place] [address] from Last 3 Months or Most Recently Relevant to Health Maintenance Additional Health Concerns Infection Onset Date Last Indicated ESBL Comment:Urine collected 04/22/2024 resulted positive for ESBL. This patient will require contact precautions indefinitely. Do not resolve this infection. 04/22/2024 4 MRSA 05/03/2024 05/03/2024 Insurance WELLCARE MEDICARE PASSPORT MEDICAID [place] Advance Directives Documents on File Type Date Recorded Patient Earthmoving Labourer Expl anation Advance Directives and Livin g Will 09/12/2024 6:41 AM * Full Code (Latest Code Status on File) Date Activated Date Inactivated Comments 09/11/2024 6:45 PM 09/27/2024 5:30 PM Question Answer Comments Patient has decision-making capacity? Yes * Full Code Date Activated Date Inactivated Comments 04/21/2024 5:08 PM 05/09/2024 3:49 PM Question Answer Comments Patient has decision-making capacity? Yes Care Teams Gas Meter Repairer Relationship Specialty Start Date End Date Guillermo Dior MD [address] [place] [address] PCP - General 03/27/21 Montez Vizcaino MD [address] [address] Referring Physician Dermatology 04/19/24 Marcial Calvin MD [address] [place] [phone] Surgeon Otolaryngology 04/19/24
--- OUTSIDE RECORDS SUMMARY | 2025-06-06 09:57 | XMS_ITS ---
Author Organization [facility] Address [address] [place] [address] Care Team Providers Care Coil Cleaner Name Role Phone Guillermo Dior MD Primary Care Provider [phone] Montez Vizcaino MD Unavailable [phone] Marcial Calvin MD Unavailable [phone] Active Problems Problem Noted Date Diagnosed [...]
--- OUTSIDE RECORDS SUMMARY | 2025-06-06 09:57 | XMS_ITS | Encounter Summary ---
Author Organization Healthcare Address [address] [place] [address] Care Team Providers Care Central Office Inspector Name Role Phone Guillermo Dior MD Primary Care Provider [phone] Montez Vizcaino MD Unavailable [phone] Marcial Calvin MD Unavailable [phone] Reason for Referral * Consultation (Routine) - Closed Specialty Diagnoses / Procedures Referred By Sharita spencer Referred To Contact Plastic Surgery Diagnoses Basal cell carcinoma (BCC), unspecified site Ashlyn Donahue APRN [address] [place] [address] Phone: tel: fax: Referral ID Status Reason Start Date Expiration Date V isits Requested Visits Authorized [id number] Closed Specialty Services Required 03/29/2024 09/28/2025 1 1 Encounter Details Date Type Department Care Team (Late st Contact Info) Description 03/29/2024 Community [facility] Community Practice [address] [place] [address] Ashlyn Donahue APRN [address] [place] [address] Basal cell carcinoma (BCC), unspecified site (Primary [...] documented as of this encounter Care Teams Central Office Inspector Relationship Specialty Start Date End Date Guillermo Dior MD 6 [facility] [place] [address] PCP - General 03/27/21 Montez Vizcaino MD 9[address] [facility] [address] [place] [address] Referring Physician Dermatology 04/19/24 Marcial Calvin MD [address] [place] [phone] Surgeon Otolaryngology 04/19/24 documented as of this encounter
--- OUTSIDE RECORDS SUMMARY | 2025-06-06 09:57 | XMS_ITS | Encounter Summary ---
Author Organization Healthcare Address [address] [place] [address] Care Team Providers Care Printing Shop Supervisor Name Role Phone Guillermo Dior MD Primary Care Provider [phone] Montez Vizcaino MD Unavailable [phone] Marcial Calvin MD Unavailable [phone] Encounter Details Date Type Department Care Team (Late st Contact Info) Description 05/06/2023 Community [facility] Community Practice [address] [place] [address] Charlotte Navarro, STUDENT SUPPORT SERVICES DIRECTOR [address] [place], [place] [phone] Chronic obstructive pulmonary disease, unspecified COPD type [...] documented as of this encounter Care Teams Printing Shop Supervisor Relationship Specialty Start Date End Date Guillermo Dior MD [address] [place] [address] PCP - General 03/27/21 Montez Vizcaino MD 989 [facility] [address] [place] [address] Referring Physician Dermatology 04/19/24 Marcial Calvin MD [address] [place] [phone] Surgeon Otolaryngology 04/19/24 documented as of this encounter
[2025-06-06 10:10] LABS: Hematocrit 41.9 % (37.0-47.0); Hemoglobin 13.6 g/dL (12.2-16.2); Immature Granulocytes % 0.3 %; Mean Corpuscular HGB Conc 32.5 g/dL (31.8-35.4); Mean Corpuscular Hemoglobin 31.2 pg (27.0-31.2); Mean Corpuscular Volume 96.1 fl (81-99); Nucleated Red Blood Cells % 0 %; Platelet Count 187 K/mm3 (142-424); Red Blood Count 4.36 M/mm3 (4.20-5.40); Red Cell Distribution Width-SD 48.6 fL; White Blood Count 3.8 K/mm3 (4.8-10.8)
[2025-06-06 10:51] LABS: Thyroid Stimulating Hormone 3.11 uIU/mL (0.465-4.68)
[2025-06-06 11:05] LABS: Albumin Level 3.9 g/dl (3.5-5.0); Chloride 104 mmol/L (98-107); Potassium 4.0 mmoL/L (3.5-5.1); Sodium 139 mmol/L (136-145)
[2025-06-06 11:08] LABS: Alanine Aminotransferase 21 U/L (12-78); Albumin/Globulin Ratio 1.3 (1.1-1.8); Alkaline Phosphatase 169 U/L (38-126); Anion Gap 9.0 mEq/L (5-15); Aspartate Amino Transferase 28 U/L (14-36); Bilirubin,Total 0.6 mg/dl (0.2-1.3); Blood Urea Nitrogen 20 mg/dl (7-17); Calcium 9.7 mg/dl (8.4-10.2); Carbon Dioxide 30 mmol/L (22.0-30.0); Creatinine,Serum 0.60 mg/dl (0.52-1.04); Estimated Glomerular Filt Rate 97 ml/min (>60); GFR (African American) 117 ML/MIN (>60); Globulin 3.1 g/dL (1.3-3.2); Glucose 184 mg/dl (74-100); Total Protein,Serum 7.0 g/dl (6.3-8.2)
[2025-06-06] MEDS: 0.9 % SODIUM CHLORIDE 50 ML 25 ML IV (11:16)
[2025-06-06 11:49] VITALS: BP 118/62; PULSE 71; RESP 18; TEMP 36.9; O2SAT 95
[2025-06-06] MEDS: CEMIPLIMAB-RWLC 350 MG in 0.9 % SODIUM CHLORIDE 100 ML 214 MG IV (11:49)
[2025-06-06] MEDS: SODIUM CHLORIDE 0.9% 10ML FLUSH SYRINGE 10 ML IV (11:49)
[2025-06-06 12:32] VITALS: BP 118/48; PULSE 61; RESP 18; O2SAT 96
== END 2025-06-06 12:32 | disposition home or self-care (01) ==
LOC: INF 09:54
PROVIDERS: PCP Family Medicine; Visit Provider Internal Medicine Medical Oncology
DX: Z51.11 Encounter for antineoplastic chemotherapy (principal); C44.321 Squamous cell carcinoma of skin of nose; Z79.899 Other long term (current) drug therapy
CPT/HCPCS: 80053; 84443; 85025; 96413; J9119

== ENCOUNTER 2025-06-27 10:02 | Outpatient (CLI) | payer MEDICARE, MEDICAID, SELFPAY ==
--- OUTSIDE RECORDS SUMMARY | 2025-06-27 10:14 | XMS_ITS | Clinical Summary ---
Author Organization [facility] Address [address] [place] [address] Care Team Providers Care Production Shift Supervisor Name Role Phone Guillermo Dior MD Primary Care Provider [phone] Montez Vizcaino MD Unavailable [phone] Marcial Calvin MD Unavailable [phone] Allergies Active Allergy Reactions Criticality Noted [...] by mouth every 6 (six) hours. Under [place] law, monthly prescriptions (30 days) can be [...] (Tamiflu) 75 MG capsule 5 Active Tiotropium [place] Monohydrate (Spiriva Respimat) 2.5 MCG/ACT inhaler 0 Active HYDROcodone-kesha taminophen ([place]) 5-325 MG tablet 5 Active hydrOXYzine HCl [...] place to sleep or slept in a senior living (including now)? No 09/12/2024 Utilities Answer Date [...] or (1 - 1-dose 75+ series) 2023 [id number] Vaccine ( - season) 2024 10/30/2021, 04/29/2021, [...] MD on 12/24/2024 10:46 AM Lyndsey Lopez ADULT SECONDARY EDUCATION INSTRUCTOR, DNP IMG CT PROCEDURES Final Result * [...] Adults <6.0% Children and Adolescents <7.5% Source: [place] [employer]. Standards of medical care in diabetes,2017. Diabetes Care.2017:40 (suppl 1):S1-S135. HbA1c assay performed by an ion-exchange chromatography method that is certified traceable to the DCCT. Cleestina Dumas DO LAB BLOOD ORDERABLES Fin al Result [facility] [address] [place] [address] from Last 3 Months or Most Recently Relevant to Health Maintenance Additional Health Concerns Infection Onset Date Last Indicated ESBL Comment:Urine collected 04/22/2024 resulted positive for ESBL. This patient will require contact precautions indefinitely. Do not resolve this infection. 04/22/2024 4 MRSA 05/03/2024 05/03/2024 Insurance WELLCARE MEDICARE PASSPORT MEDICAID [place] Advance Directives Documents on File Type Date Recorded Patient Place Change Roof Bolter Expl anation Advance Directives and Livin g Will 09/12/2024 6:41 AM * Full Code (Latest Code Status on File) Date Activated Date Inactivated Comments 09/11/2024 6:45 PM 09/27/2024 5:30 PM Question Answer Comments Patient has decision-making capacity? Yes * Full Code Date Activated Date Inactivated Comments 04/21/2024 5:08 PM 05/09/2024 3:49 PM Question Answer Comments Patient has decision-making capacity? Yes Care Teams Production Shift Supervisor Relationship Specialty Start Date End Date Guillermo Dior MD [address] [facility] [place] [address] PCP - General 03/27/21 Montez Vizcaino MD [address] [address] Referring Physician Dermatology 04/19/24 Marcial Calvin MD [address] [place] [phone] Surgeon Otolaryngology 04/19/24
--- OUTSIDE RECORDS SUMMARY | 2025-06-27 10:14 | XMS_ITS ---
Author Organization [facility] Address [address] [place] [address] Care Team Providers Care Bank Courier Name Role Phone Guillermo Dior MD Primary Care Provider [phone] Montez Vizcaino MD Unavailable [phone] Marcial Calvin MD Unavailable [phone] Active Problems Problem Noted Date Diagnosed [...]
--- OUTSIDE RECORDS SUMMARY | 2025-06-27 10:14 | XMS_ITS | Encounter Summary ---
Author Organization Healthcare Address [address] [place] [address] Care Team Providers Care Analyst Name Role Phone Guillermo Dior MD Primary Care Provider [phone] Montez Vizcaino MD Unavailable [phone] Marcial Calvin MD Unavailable [phone] Reason for Referral * Consultation (Routine) - Closed Specialty Diagnoses / Procedures Referred By Sharita spencer Referred To Contact Plastic Surgery Diagnoses Basal cell carcinoma (BCC), unspecified site Ashlyn Donahue APRN [address] [place] [address] Phone: tel: fax: Referral ID Status Reason Start Date Expiration Date V isits Requested Visits Authorized [id number] Closed Specialty Services Required 03/29/2024 09/28/2025 1 1 Encounter Details Date Type Department Care Team (Late st Contact Info) Description 03/29/2024 Community [facility] Practice [address] [place] [address] Ashlyn Donahue APRN [address] [place] [address] Basal cell carcinoma (BCC), unspecified site (Primary [...] documented as of this encounter Care Teams Analyst Relationship Specialty Start Date End Date Guillermo Dior MD 6 [facility] [place] [address] PCP - General 03/27/21 Montez Vizcaino MD 989 [facility] 220 [place] [address] Referring Physician Dermatology 04/19/24 Marcial Calvin MD [address] [place] [phone] Surgeon Otolaryngology 04/19/24 documented as of this encounter
--- OUTSIDE RECORDS SUMMARY | 2025-06-27 10:14 | XMS_ITS | Clinical Summary ---
Author Organization [facility] Address [address] [place] [address] Phone Care Team Providers Care Cryptological Technician Name Role Phone Unavailable Primary Care Provider [...] to complete this topic Insurance [place]ID [place] [facility] DUAL ACCESS [place] D-SNP [place] [address]
--- OUTSIDE RECORDS SUMMARY | 2025-06-27 10:14 | XMS_ITS | Encounter Summary ---
Author Organization Healthcare Address [address] [place] [address] Care Team Providers Care Locomotive Crane Engineer Name Role Phone Guillermo Dior MD Primary Care Provider [phone] Montez Vizcaino MD Unavailable [phone] Marcial Calvin MD Unavailable [phone] Encounter Details Date Type Department Care Team (Late st Contact Info) Description 05/06/2023 Community [facility] Community Practice [address] [place] [address] Charlotte Navarro, MACHINE TOOL DESIGNER [address] [place], [place] [id number] Chronic obstructive pulmonary disease, unspecified COPD type [...] documented as of this encounter Care Teams Locomotive Crane Engineer Relationship Specialty Start Date End Date Guillermo Dior MD [address] [facility] [address] PCP - General 03/27/21 Montez Vizcaino MD 9[address] [facility] [address] [place] [address] Referring Physician Dermatology 04/19/24 Marcial Calvin MD [address] [place] [phone] Surgeon Otolaryngology 04/19/24 documented as of this encounter
[2025-06-27 11:14] LABS: Hematocrit 41.5 % (37.0-47.0); Hemoglobin 13.0 g/dL (12.2-16.2); Immature Granulocytes % 0.2 %; Mean Corpuscular HGB Conc 31.3 g/dL (31.8-35.4); Mean Corpuscular Hemoglobin 30.6 pg (27.0-31.2); Mean Corpuscular Volume 97.6 fl (81-99); Nucleated Red Blood Cells % 0 %; Platelet Count 187 K/mm3 (142-424); Red Blood Count 4.25 M/mm3 (4.20-5.40); Red Cell Distribution Width-SD 50.9 fL; White Blood Count 4.7 K/mm3 (4.8-10.8)
[2025-06-27 11:18] LABS: Albumin Level 4.0 g/dl (3.5-5.0); Chloride 105 mmol/L (98-107)
[2025-06-27 11:19] LABS: Potassium 4.3 mmoL/L (3.5-5.1); Sodium 140 mmol/L (136-145)
[2025-06-27 11:21] LABS: Alanine Aminotransferase 43 U/L (12-78); Anion Gap 10.3 mEq/L (5-15); Aspartate Amino Transferase 39 U/L (14-36); Blood Urea Nitrogen 18 mg/dl (7-17); Carbon Dioxide 29 mmol/L (22.0-30.0); Creatinine,Serum 0.70 mg/dl (0.52-1.04); Estimated Glomerular Filt Rate 81 ml/min (>60); GFR (African American) 98 ML/MIN (>60)
[2025-06-27 11:22] LABS: Albumin/Globulin Ratio 1.1 (1.1-1.8); Alkaline Phosphatase 206 U/L (38-126); Bilirubin,Total 0.5 mg/dl (0.2-1.3); Calcium 9.2 mg/dl (8.4-10.2); Globulin 3.6 g/dL (1.3-3.2); Glucose 301 mg/dl (74-100); Total Protein,Serum 7.6 g/dl (6.3-8.2)
[2025-06-27] MEDS: CEMIPLIMAB-RWLC 350 MG in 0.9 % SODIUM CHLORIDE 100 ML 214 MG IV (11:49)
[2025-06-27 11:51] LABS: Thyroid Stimulating Hormone 3.65 uIU/mL (0.465-4.68)
[2025-06-27 11:55] VITALS: BP 139/71; PULSE 65; RESP 18; O2SAT 95
[2025-06-27 12:35] VITALS: BP 139/71; PULSE 65; RESP 18; O2SAT 95
== END 2025-06-27 12:35 | disposition home or self-care (01) ==
LOC: INF 10:07
PROVIDERS: PCP Family Medicine; Visit Provider Internal Medicine Medical Oncology
DX: C44.321 Squamous cell carcinoma of skin of nose (principal); Z79.899 Other long term (current) drug therapy; Z51.11 Encounter for antineoplastic chemotherapy
CPT/HCPCS: 80053; 84443; 85025; 96413; J9119

== ENCOUNTER 2025-07-18 11:44 | Outpatient (CLI) | payer MEDICARE, MEDICAID, SELFPAY ==
--- OUTSIDE RECORDS SUMMARY | 2025-07-18 11:49 | XMS_ITS ---
Author Organization [facility] Address [address] [place] [address] Care Team Providers Care Industrial Tractor Driver Name Role Phone Guillermo Dior MD Primary Care Provider [phone] Montez Vizcaino MD Unavailable [phone] Marcial Calvin MD Unavailable [phone] Active Problems Problem Noted Date Diagnosed [...]
--- OUTSIDE RECORDS SUMMARY | 2025-07-18 11:49 | XMS_ITS | Encounter Summary ---
Author Organization Healthcare Address [address] [place] [address] Care Team Providers Care Cadastral Engineer Name Role Phone Guillermo Dior MD Primary Care Provider [phone] Montez Vizcaino MD Unavailable [phone] Marcial Calvin MD Unavailable [phone] Reason for Referral * Consultation (Routine) - Closed Specialty Diagnoses / Procedures Referred By Sharita spencer Referred To Contact Plastic Surgery Diagnoses Basal cell carcinoma (BCC), unspecified site Ashlyn Donahue APRN [address] [place] [address] Phone: tel: fax: Referral ID Status Reason Start Date Expiration Date V isits Requested Visits Authorized [id number] Closed Specialty Services Required 03/29/2024 09/28/2025 1 1 Encounter Details Date Type Department Care Team (Late st Contact Info) Description 03/29/2024 Community [facility] Community Practice [address] [place] [address] Aslhyn Donahue APRN [address] [place] [address] Basal cell carcinoma (BCC), unspecified site (Primary [...] documented as of this encounter Care Teams Cadastral Engineer Relationship Specialty Start Date End Date Guillermo Dior MD 6 [place] [place] [address] PCP - General 03/27/21 Montez Vizcaino MD 989 [facility] 220 [place] [address] Referring Physician Dermatology 04/19/24 Marcial Calvin MD [address] [place] [phone] Surgeon Otolaryngology 04/19/24 documented as of this encounter
--- OUTSIDE RECORDS SUMMARY | 2025-07-18 11:49 | XMS_ITS | Clinical Summary ---
Author Organization [facility] Address [address] [place] [address] Phone Care Team Providers Care Mechanical Sound Technician Name Role Phone Unavailable Primary Care [...] COVID-19 Vaccine (1 - 2023-2 5 season) 2025 Influenza Vaccine (#1) 2025 Hepatitis B Vaccine Aged Out No longe r eligible based on patient's age to complete this topic Meningococcal B Vaccine Aged Out No l onger eligible based on patient's age to complete this topic Insurance [place]ID [place] [facility] DUAL ACCESS [place] D-SNP [place] [address]
--- OUTSIDE RECORDS SUMMARY | 2025-07-18 11:49 | XMS_ITS | Encounter Summary ---
Author Organization Healthcare Address [address] [place] [address] Care Team Providers Care Oracle Iam Consultant Name Role Phone Guillermo Dior MD Primary Care Provider [phone] Montez Vizcaino MD Unavailable [phone] Marcial Calvin MD Unavailable [phone] Encounter Details Date Type Department Care Team (Late st Contact Info) Description 05/06/2023 Community [facility] Community Practice [address] [place] [address] Charlotte Navarro, VULCANIZING MACHINE OPERATOR [address] [place], [place] [id number] Chronic obstructive pulmonary disease, unspecified COPD type [...] documented as of this encounter Care Teams Oracle Iam Consultant Relationship Specialty Start Date End Date Guillermo Dior MD 496 [facility] [place] [address] PCP - General 03/27/21 Montez Vizcaino MD 989 [facility] 220 [place] [address] Referring Physician Dermatology 04/19/24 Marcial Calvin MD [address] [place] [address] [phone] Surgeon Otolaryngology 04/19/24 documented as of this encounter
--- OUTSIDE RECORDS SUMMARY | 2025-07-18 11:49 | XMS_ITS | Clinical Summary ---
Author Organization [facility] Address [address] [place] [address] Care Team Providers Care Class A Lineman Name Role Phone Guillermo Dior MD Primary Care Provider [phone] Montez Vizcaino MD Unavailable [phone] Marcial Calvin MD Unavailable [phone] Allergies Active Allergy Reactions Criticality Noted [...] by mouth every 6 (six) hours. Under [place] law, monthly prescriptions (30 days) can be [...] (Tamiflu) 75 MG capsule 5 Active Tiotropium [place] Monohydrate (Spiriva Respimat) 2.5 MCG/ACT inhaler 0 Active HYDROcodone-kesha taminophen (Roby) 5-325 MG tablet 5 Active hydrOXYzine HCl (Atarax) 50 MG tablet 0 Active fluticasone-madna meterol (Advair) 115-21 MCG/ACT inhaler 4 Active [...] place to sleep or slept in a penitentiary (including now)? No 09/12/2024 Utilities Answer Date [...] or (1 - 1-dose 75+ series) 2023 [id number] Vaccine ( - season) 2024 10/30/2021, 04/29/2021, [...] MD on 12/24/2024 10:46 AM Lyndsey Lopez AVIATION TECHNICIAN AIRCRAFT, DNP IMG CT PROCEDURES Final Result * [...] Fin al Result [facility] [address] [place] [address] from Last 3 Months or Most Recently Relevant to Health Maintenance Additional Health Concerns Infection Onset Date Last Indicated ESBL Comment:Urine collected 04/22/2024 resulted positive for ESBL. This patient will require contact precautions indefinitely. Do not resolve this infection. 04/22/2024 4 MRSA 05/03/2024 05/03/2024 Insurance [employer] MEDICARE [place] MEDICAID [place] Advance Directives Documents on File Type Date Recorded Patient Drafter Directional Survey Expl anation Advance Directives and Livin g Will 09/12/2024 6:41 AM * Full Code (Latest Code Status on File) Date Activated Date Inactivated Comments 09/11/2024 6:45 PM 09/27/2024 5:30 PM Question Answer Comments Patient has decision-making capacity? Yes * Full Code Date Activated Date Inactivated Comments 04/21/2024 5:08 PM 05/09/2024 3:49 PM Question Answer Comments Patient has decision-making capacity? Yes Care Teams Class A Lineman Relationship Specialty Start Date End Date Guillermo Dior MD [address] [facility] [place] [address] PCP - General 03/27/21 Montez Vizcaino MD [address] [address] Referring Physician Dermatology 04/19/24 Marcial Calvin MD [address] [place] [phone] Surgeon Otolaryngology 04/19/24
[2025-07-18 12:03] LABS: Hematocrit 39.7 % (37.0-47.0); Hemoglobin 12.9 g/dL (12.2-16.2); Immature Granulocytes % 0.5 %; Mean Corpuscular HGB Conc 32.5 g/dL (31.8-35.4); Mean Corpuscular Hemoglobin 31.4 pg (27.0-31.2); Mean Corpuscular Volume 96.6 fl (81-99); Nucleated Red Blood Cells % 0 %; Platelet Count 167 K/mm3 (142-424); Red Blood Count 4.11 M/mm3 (4.20-5.40); Red Cell Distribution Width-SD 48.8 fL; White Blood Count 3.7 K/mm3 (4.8-10.8)
[2025-07-18 12:20] LABS: Chloride 111 mmol/L (98-107)
[2025-07-18 12:21] LABS: Albumin Level 3.9 g/dl (3.5-5.0); Potassium 4.6 mmoL/L (3.5-5.1); Sodium 144 mmol/L (136-145)
[2025-07-18 12:23] LABS: Alanine Aminotransferase 24 U/L (12-78); Albumin/Globulin Ratio 1.2 (1.1-1.8); Alkaline Phosphatase 113 U/L (38-126); Anion Gap 11.6 mEq/L (5-15); Aspartate Amino Transferase 36 U/L (14-36); Bilirubin,Total 0.5 mg/dl (0.2-1.3); Blood Urea Nitrogen 20 mg/dl (7-17); Carbon Dioxide 26 mmol/L (22.0-30.0); Creatinine,Serum 0.70 mg/dl (0.52-1.04); Estimated Glomerular Filt Rate 81 ml/min (>60); GFR (African American) 98 ML/MIN (>60); Globulin 3.3 g/dL (1.3-3.2); Total Protein,Serum 7.2 g/dl (6.3-8.2)
[2025-07-18 12:24] LABS: Calcium 9.5 mg/dl (8.4-10.2); Glucose 195 mg/dl (74-100)
[2025-07-18] MEDS: CEMIPLIMAB-RWLC 350 MG in 0.9 % SODIUM CHLORIDE 100 ML 214 MG IV (13:06)
[2025-07-18 13:10] VITALS: BP 112/53; PULSE 68; RESP 18; TEMP 36.8; O2SAT 98
[2025-07-18 13:16] LABS: Thyroid Stimulating Hormone 0.84 uIU/mL (0.465-4.68)
[2025-07-18 13:25] VITALS: BP 130/62; PULSE 67
[2025-07-18 13:45] VITALS: BP 134/64; PULSE 70
[2025-07-18] MEDS: SODIUM CHLORIDE 0.9% 10ML FLUSH SYRINGE 10 ML IV (13:45)
== END 2025-07-18 13:58 | disposition home or self-care (01) ==
LOC: INF 11:47
PROVIDERS: PCP Family Medicine; Visit Provider Internal Medicine Medical Oncology
DX: C44.321 Squamous cell carcinoma of skin of nose (principal); Z79.899 Other long term (current) drug therapy; Z51.11 Encounter for antineoplastic chemotherapy
CPT/HCPCS: 80053; 84443; 85025; 96413; J9119

== ENCOUNTER 2025-08-08 10:43 | Outpatient (CLI) | payer MEDICARE, MEDICAID, SELFPAY ==
[2025-08-08 10:47] VITALS: BMI 24.0
[2025-08-08 11:00] LABS: Hematocrit 42.6 % (37.0-47.0); Hemoglobin 13.6 g/dL (12.2-16.2); Immature Granulocytes % 0.3 %; Mean Corpuscular HGB Conc 31.9 g/dL (31.8-35.4); Mean Corpuscular Hemoglobin 31.3 pg (27.0-31.2); Mean Corpuscular Volume 97.9 fl (81-99); Nucleated Red Blood Cells % 0 %; Platelet Count 164 K/mm3 (142-424); Red Blood Count 4.35 M/mm3 (4.20-5.40); Red Cell Distribution Width-SD 50.6 fL; White Blood Count 3.6 K/mm3 (4.8-10.8)
[2025-08-08 11:11] LABS: Albumin Level 4.2 g/dl (3.5-5.0); Chloride 101 mmol/L (98-107); Sodium 140 mmol/L (136-145)
[2025-08-08 11:12] LABS: Potassium 4.2 mmoL/L (3.5-5.1)
[2025-08-08 11:14] LABS: Alanine Aminotransferase 70 U/L (12-78); Albumin/Globulin Ratio 1.1 (1.1-1.8); Alkaline Phosphatase 149 U/L (38-126); Anion Gap 15.2 mEq/L (5-15); Aspartate Amino Transferase 65 U/L (14-36); Bilirubin,Total 0.8 mg/dl (0.2-1.3); Blood Urea Nitrogen 20 mg/dl (7-17); Carbon Dioxide 28 mmol/L (22.0-30.0); Creatinine Clearance Estimated 46 mL/min (50-200); Creatinine,Serum 0.90 mg/dl (0.52-1.04); Estimated Glomerular Filt Rate 61 ml/min (>60); GFR (African American) 73 ML/MIN (>60); Globulin 3.9 g/dL (1.3-3.2); Total Protein,Serum 8.1 g/dl (6.3-8.2)
[2025-08-08 11:15] LABS: Calcium 9.8 mg/dl (8.4-10.2); Glucose 206 mg/dl (74-100)
[2025-08-08 11:44] VITALS: BP 138/80; PULSE 62; RESP 18; TEMP 36.5; O2SAT 95
[2025-08-08 11:46] LABS: Thyroid Stimulating Hormone 3.52 uIU/mL (0.465-4.68)
[2025-08-08] MEDS: SODIUM CHLORIDE 0.9% 10ML FLUSH SYRINGE 10 ML IV (11:54)
[2025-08-08 12:05] VITALS: BP 131/75; PULSE 68; RESP 18; O2SAT 96
[2025-08-08] MEDS: CEMIPLIMAB-RWLC 350 MG in 0.9 % SODIUM CHLORIDE 100 ML 214 MG IV (12:05)
[2025-08-08 12:40] VITALS: BP 142/79; PULSE 70; RESP 18; O2SAT 96
== END 2025-08-08 23:59 | disposition home or self-care (01) ==
LOC: INF 10:44
PROVIDERS: PCP Family Medicine; Visit Provider Internal Medicine Medical Oncology
DX: C44.321 Squamous cell carcinoma of skin of nose (principal); Z79.899 Other long term (current) drug therapy; Z51.11 Encounter for antineoplastic chemotherapy
CPT/HCPCS: 80053; 84443; 85025; 96413; J9119

== ENCOUNTER 2025-08-23 09:27 | Outpatient (CLI) | payer MEDICARE, MEDICAID, SELFPAY ==
--- NOTE | 2025-08-23 09:30 | CT_ITS ---
FINAL REPORT TECHNIQUE: Thin section axial CT images with coronal and sagittal reformats were performed after the administration of IV contrast. This study was performed with techniques to keep radiation doses as low as reasonably achievable (ALARA). Individualized dose reduction techniques using automated exposure control or adjustment of mA and/or kV according to the patient''s size were employed. CLINICAL HISTORY: nasal squamous cell carcinoma, mass COMPARISON: 12/07/2024 FINDINGS: The nasopharynx, oropharynx, epiglottis, and larynx are unremarkable. The thyroid gland is homogeneous. There are postoperative changes to the left orbit with removal of the left globe. The previously seen mass along the left nose is significantly smaller. No residual measurable mass is identified. The salivary glands are unremarkable. There is no lymphadenopathy. The paranasal sinuses and mastoid air cells are clear. No acute osseous abnormality is identified. The previously identified rounded opacity in the right upper lobe is not included on today's exam. IMPRESSION: Previously identified mass along the right nose is significantly smaller. No lymphadenopathy. Reviewed, Interpreted and Dictated by Jordyn Rogers MD Transcribed by Molly Mccarty Authenticated and [facility]
--- OUTSIDE RECORDS SUMMARY | 2025-08-23 09:31 | XMS_ITS | Clinical Summary ---
Author Organization [facility] Address [address] [place] [address] Care Team Providers Care Manager Retirement Name Role Phone Guillermo Dior MD Primary Care Provider [phone] Montez Vizcaino MD Unavailable [phone] Marcial Calvin MD Unavailable [phone] Allergies Active Allergy Reactions Criticality Noted [...] by mouth every 6 (six) hours. Under [place] law, monthly prescriptions (30 days) can be [...] (Tamiflu) 75 MG capsule 5 Active Tiotropium [place] Monohydrate (Spiriva Respimat) 2.5 MCG/ACT inhaler 0 Active HYDROcodone-kesha taminophen (Roy) 5-325 MG tablet 5 Active hydrOXYzine HCl [...] mellitus with hyperglycemia 04/15 Generalized weakness 04/22/2024 Vitamin D deficiency 04/20/2024 Type 2 diabetes mellitus 04/20/2024 Schizophrenia, unspecified 04/20/2024 Osteoporosis 04/20/2024 HLD (hyperlipidemia) 04/20/2024 History of restless legs syndrome 04/20/2024 Hepatitis B infection 04/20/2024 GERD (gastroesophageal reflux disease) 4 Depression 04/20/2024 Chronic obstructive pulmonary disease, unspecifi ed 04/20/2024 Overview (04/20/2024): Mild Bipolar disorder 04/20/2024 Anxiety 04/20/2024 Alcohol dependence, in remission 04/20/2024 Overview (04/20/2024): History of alcoholism Hyperglycemia 04/20/2024 Hypophosphatemia 04/20/2024 Hypokalemia 04/20/2024 Bradycardia 04/20/2024 Skin cancer of face 04/19/2024 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 04/05/20 24 History of falling 01/04/2024 Resolved Problems Problem Noted Date Diagnosed Date Resolved Date Acute encephalopathy 04/20/2024 025 Acute cystitis without hematuria 04/20/2024 08/04/2025 Muscle weakness (generalized) 01/09/2024 08/04/2025 Immunizations Immunization Administration Dates Next Due Hep [...] the past 12 months has th e [employer], gas, oil, or water [employer] threatened to shut off services in your [...] or (1 - 1-dose 75+ series) 2023 [facility]-Diabetes: Hemoglobin A1C 07/21/2024 04/21/2024, 08/05/2018 [facility]- SDOH Screenings 03/13/2025 [facility]-Adult SDOH Screenings 03/13/2025 09/12/2024 [id number] Vaccine ( season) 2025 10/30/2021, 04/29/2021, 04/08/2021 [facility]-Influenza Vaccine (#1) 07/15/202510/30, 09/26/2020, 07/23/2019, Additional [...] MD on 12/24/2024 10:46 AM Lyndsey Lopez WAREHOUSE OPERATOR, DNP IMG CT PROCEDURES Final Result [...] Adults <6.0% Children and Adolescents <7.5% Source: [place] [employer]. Standards of medical care in diabetes,2017. Diabetes Care.2017:40 (suppl 1):S1-S135. HbA1c assay performed by an ion-exchange chromatography method that is certified traceable to the DCCT. Celestina Dumas DO LAB BLOOD ORDERABLES Fin al Result [facility] [address] [place] [address] from Last 3 Months or Most Recently Relevant to Health Maintenance Additional Health Concerns Infection Onset Date Last Indicated ESBL Comment:Urine collected 04/22/2024 resulted positive for ESBL. This patient will require contact precautions indefinitely. Do not resolve this infection. 04/22/2024 4 MRSA 05/03/2024 05/03/2024 Insurance [employer] MEDICARE [place] MEDICAID [place] Advance Directives Documents on File Type Date Recorded Patient Iron Guardrail Installer Expl anation Advance Directives and Livin g Will 09/12/2024 6:41 AM * Full Code (Latest Code Status on File) Date Activated Date Inactivated Comments 09/11/2024 6:45 PM 09/27/2024 5:30 PM Question Answer Comments Patient has decision-making capacity? Yes * Full Code Date Activated Date Inactivated Comments 04/21/2024 5:08 PM 05/09/2024 3:49 PM Question Answer Comments Patient has decision-making capacity? Yes Care Teams Manager Retirement Relationship Specialty Start Date End Date Guillermo Dior MD [address] [facility] [place] [address] PCP - General 03/27/21 Montez Vizcaino MD [address] [address] Referring Physician Dermatology 04/19/24 Marcial Calvin MD [address] [place] [phone] Surgeon Otolaryngology 04/19/24
--- OUTSIDE RECORDS SUMMARY | 2025-08-23 09:31 | XMS_ITS ---
Author Organization [facility] Address [address] [place] [address] Care Team Providers Care Machinist Job Setter Name Role Phone Guillermo Dior MD Primary Care Provider [phone] Montez Vizcaino MD Unavailable [phone] Marcial Calvin MD Unavailable [phone] Active Problems Problem Noted Date Diagnosed [...] nose 04/05/20 24 History of falling 01/04/2024 Current Treatment and [...] (DLP) 940 mGy-cm 940 mGy-cm 0 mGy-cm Resolved Problems Problem Noted Date Diagnosed Date Resolved Date Acute encephalopathy 04/20/2024 025 Acute cystitis without hematuria 04/20/2024 08/04/2025 Muscle weakness (generalized) 01/09/2024 08/04/2025
--- OUTSIDE RECORDS SUMMARY | 2025-08-23 09:31 | XMS_ITS | Encounter Summary ---
Author Organization Healthcare Address [address] [place] [address] Care Team Providers Care Recreation Therapy Aide Name Role Phone Guillermo Dior MD Primary Care Provider [phone] Montez Vizcaino MD Unavailable [phone] Marcial Calvin MD Unavailable [phone] Reason for Referral * Consultation (Routine) - Closed Specialty Diagnoses / Procedures Referred By Sharita spencer Referred To Contact Plastic Surgery Diagnoses Basal cell carcinoma (BCC), unspecified site Ashlyn Donahue APRN [address] [id number] Phone: tel: fax: Referral ID Status Reason Start Date Expiration Date V isits Requested Visits Authorized [id number] Closed Specialty Services Required 03/29/2024 09/28/2025 1 1 Encounter Details Date Type Department Care Team (Late st Contact Info) Description 03/29/2024 [facility] Community Practice [address] [place] [address] Ashlyn Donahue APRN [address] [address] Basal cell carcinoma (BCC), unspecified site (Primary [...] documented as of this encounter Care Teams Recreation Therapy Aide Relationship Specialty Start Date End Date Guillermo Dior MD 496 [facility] [place] [address] PCP - General 03/27/21 Montez Vizcaino MD 989 [facility] 220 [place] [address] Referring Physician Dermatology 04/19/24 Marcial Calvin MD [address] [phone] Surgeon Otolaryngology 04/19/24 documented as of this encounter
--- OUTSIDE RECORDS SUMMARY | 2025-08-23 09:31 | XMS_ITS | Encounter Summary ---
Author Organization Healthcare Address [address] [place] [address] Care Team Providers Care Wage Hand Name Role Phone Guillermo Dior MD Primary Care Provider [phone] Montez Vizcaino MD Unavailable [phone] Marcial Calvin MD Unavailable [phone] Encounter Details Date Type Department Care Team (Late st Contact Info) Description 05/06/2023 Community [facility] Community Practice [address] [place] [address] Charlotte Navarro, JEWELRY MANAGER [address] [place], [place] [phone] Chronic obstructive pulmonary disease, unspecified COPD type [...] documented as of this encounter Care Teams Wage Hand Relationship Specialty Start Date End Date Guillermo Dior MD 496 [facility] [place] [address] PCP - General 03/27/21 Montez Vizcaino MD 989 [facility] [address] [place] [address] Referring Physician Dermatology 04/19/24 Marcial Calvin MD [address] [place] [phone] Surgeon Otolaryngology 04/19/24 documented as of this encounter
--- OUTSIDE RECORDS SUMMARY | 2025-08-23 09:31 | XMS_ITS | Clinical Summary ---
Author Organization [facility] Address [address] [place] [address] Phone Care Team Providers Care Tar And Ammonia Pump Operator Name Role Phone Unavailable Primary Care Provider [...] on file Sexual Orientation Not on file Plan of Treatment Health Maintenance Due Date [...] age to complete this topic Insurance MEDICAID [facility] DUAL ACCESS [place] D-SNP [place] [address]
[2025-08-23] MEDS: SODIUM CHLORIDE 0.9% 10ML SYR (RAD ONLY) 10 ML IV (10:18)
[2025-08-23] MEDS: IOPAMIDOL-370 (76%);100ML BOTTLE 75 ML IV (10:18)
== END 2025-08-23 23:59 | disposition home or self-care (01) ==
LOC: RAD 09:29
PROVIDERS: PCP Family Medicine; Visit Provider Internal Medicine Medical Oncology
DX: C76.0 Malignant neoplasm of head, face and neck (principal); C78.00 Secondary malignant neoplasm of unspecified lung; R93.0 Abnormal findings on diagnostic imaging of skull and head, not elsewhere classified
CPT/HCPCS: 70491; Q9967

== ENCOUNTER 2025-09-02 13:04 | Outpatient (CLI) | payer MEDICARE, MEDICAID, SELFPAY ==
--- NOTE | 2025-09-02 13:00 | CT_ITS ---
FINAL REPORT TECHNIQUE: After the administration of intravenous contrast, axial images through the chest were performed by computed tomography.This study was performed with techniques to keep radiation doses as low as reasonably achievable, (ALARA). Individualized dose reduction techniques using automated exposure control or adjustment of mA and/or kV according to the patient''s size were employed. CLINICAL HISTORY: squamous cell carcinoma COMPARISON: 05/31/2025 FINDINGS: Normal size precarinal lymph node measuring 8 mm is unchanged. A right lower precarinal lymph node measures up to 15 mm and previously measured 13 mm. A subcarinal lymph node measuring 22 x 10 mm is not significantly changed.. The heart size is normal. There is no pericardial or pleural effusion. Subpleural mass in the right upper lobe measures 30 x 28 mm was 29 x 31 mm and is not significantly changed. The cavitary component is diminished from the prior exam. Curvilinear densities in the lower lobes probably represent atelectasis and/or scar. There is chronic bronchial wall thickening compatible with bronchitis. IMPRESSION: Stable size right upper lobe mass with cavitary component improved. Mild adenopathy, unchanged. Largest lymph node in the subcarinal region. Reviewed, Interpreted and Dictated by Yas Klein MD Transcribed by Makenzie Garcia Authenticated and [facility]
--- NOTE | 2025-09-02 13:00 | CT_ITS ---
FINAL REPORT TECHNIQUE: IV contrast enhanced exam This study was performed with techniques to keep radiation doses as low as reasonably achievable, (ALARA). Individualized dose reduction techniques using automated exposure control or adjustment of mA and/or kV according to the patient''s size were employed. CLINICAL HISTORY: squamous cell carcinoma COMPARISON: 05/31/2025 FINDINGS: Abdomen: Solid abdominal organs are unremarkable. Cholelithiasis is noted. No bowel obstruction is present. There is no free air. No fluid collection is seen. There is no adenopathy. Pelvis: The appendix is normal. No bowel wall thickening is present. The uterine cavity is fluid-filled with air-fluid level which may be seen with infection or fistula. There is no free fluid. No pelvic mass is seen. IMPRESSION: No evidence of metastatic disease in the abdomen or pelvis. Abnormal appearance of the uterus, similar to the prior study. Cholelithiasis. Reviewed, Interpreted and Dictated by Yas Klein MD Transcribed by Makenzie Garcia Authenticated and [facility]
[2025-09-02] MEDS: SODIUM CHLORIDE 0.9% 10ML SYR (RAD ONLY) 10 ML IV (13:37)
[2025-09-02] MEDS: IOPAMIDOL-370 (76%);100ML BOTTLE 75 ML IV (13:38)
== END 2025-09-02 23:59 | disposition home or self-care (01) ==
LOC: RAD 13:06
PROVIDERS: PCP Family Medicine; Visit Provider Internal Medicine Medical Oncology
DX: C78.01 Secondary malignant neoplasm of right lung (principal); K80.20 Calculus of gallbladder without cholecystitis without obstruction; R93.89 Abnormal findings on diagnostic imaging of other specified body structures; R59.0 Localized enlarged lymph nodes
CPT/HCPCS: 71260; 74177; Q9967

== ENCOUNTER 2025-09-03 11:33 | Outpatient (CLI) | payer MEDICARE, MEDICAID, SELFPAY ==
[2025-09-03 11:35] VITALS: BMI 24.0
--- OUTSIDE RECORDS SUMMARY | 2025-09-03 11:37 | XMS_ITS ---
Author Organization [facility] Address [address] [place] [address] Care Team Providers Care Relay Operator Name Role Phone Guillermo Dior MD Primary Care Provider [phone] Montez Vizcaino MD Unavailable [phone] Marcial Calvin MD Unavailable [phone] Active Problems Problem Noted Date Diagnosed [...]
--- OUTSIDE RECORDS SUMMARY | 2025-09-03 11:37 | XMS_ITS | Encounter Summary ---
Author Organization Healthcare Address [address] [place] [address] Care Team Providers Care Contingents Supervisor Name Role Phone Guillermo Dior MD Primary Care Provider [phone] Montez Vizcaino MD Unavailable [phone] Marcial Calvin MD Unavailable [phone] Encounter Details Date Type Department Care Team (Late st Contact Info) Description 05/06/2023 [facility] Practice [address] [place] [address] Charlotte Navarro, ARTISTIC ASSOCIATE [address] [place], [place] [phone] Chronic obstructive pulmonary disease, unspecified COPD type [...] documented as of this encounter Care Teams Contingents Supervisor Relationship Specialty Start Date End Date Guillermo Dior MD 496 [place] [address] PCP - General 03/27/21 Montez Vizcaino MD 989 [facility] [address] [place] [address] Referring Physician Dermatology 04/19/24 Marcial Calvin MD [address] [place] [phone] Surgeon Otolaryngology 04/19/24 documented as of this encounter
--- OUTSIDE RECORDS SUMMARY | 2025-09-03 11:37 | XMS_ITS | Clinical Summary ---
Author Organization [facility] Address [address] [place] [address] Care Team Providers Care Heavy Equipment Diesel Mechanic Name Role Phone Guillermo Dior MD Primary Care Provider [phone] Montez Vizcaino MD Unavailable [phone] Marcial Calvin MD Unavailable [phone] Allergies Active Allergy Reactions Criticality Noted [...] (Tamiflu) 75 MG capsule 5 Active Tiotropium Aurora Monohydrate (Spiriva Respimat) 2.5 MCG/ACT inhaler 0 Active HYDROcodone-kesha taminophen (Benge) 5-325 MG tablet 5 Active hydrOXYzine HCl [...] the past 12 months has th e [employer], gas, oil, or water [employer] threatened to shut off services in your [...] Screenings 03/13/2025 [facility]-Adult SDOH Screenings 03/13/2025 09/12/2024 [id number] Vaccine ( season) 2025 10/30/2021, 04/29/2021, 04/08/2021 [...] MD on 12/24/2024 10:46 AM Lyndsey Lopez TROLLEY OPERATOR, DNP IMG CT PROCEDURES Final Result [...] Adults <6.0% Children and Adolescents <7.5% Source: [place] [employer]. Standards of medical care in diabetes,2017. Diabetes Care.2017:40 (suppl 1):S1-S135. HbA1c assay performed by an ion-exchange chromatography method that is certified traceable to the DCCT. Celestina Dumas DO LAB BLOOD ORDERABLES Fin al Result [facility] [address] [place] [address] from Last 3 Months or Most Recently Relevant to Health Maintenance Additional Health Concerns Infection Onset Date Last Indicated ESBL Comment:Urine collected 04/22/2024 resulted positive for ESBL. This patient will require contact precautions indefinitely. Do not resolve this infection. 04/22/2024 4 MRSA 05/03/2024 05/03/2024 Insurance WELL[employer] MEDICARE PASSPORT MEDICAID [place] Advance Directives Documents on File Type Date Recorded Patient Chalk Cutter Expl anation Advance Directives and Livin g Will 09/12/2024 6:41 AM * Full Code (Latest Code Status on File) Date Activated Date Inactivated Comments 09/11/2024 6:45 PM 09/27/2024 5:30 PM Question Answer Comments Patient has decision-making capacity? Yes * Full Code Date Activated Date Inactivated Comments 04/21/2024 5:08 PM 05/09/2024 3:49 PM Question Answer Comments Patient has decision-making capacity? Yes Care Teams Heavy Equipment Diesel Mechanic Relationship Specialty Start Date End Date Guillermo Dior MD [address] [facility] [place] [address] PCP - General 03/27/21 Montez Vizcaino MD [address] [address] Referring Physician Dermatology 04/19/24 Marcial Calvin MD [address] [place] [phone] Surgeon Otolaryngology 04/19/24
--- OUTSIDE RECORDS SUMMARY | 2025-09-03 11:37 | XMS_ITS | Encounter Summary ---
Author Organization Healthcare Address [address] [place] [address] Care Team Providers Care Mint Wafer Depositor Name Role Phone Guillermo Dior MD Primary Care Provider [phone] Montez Vizcaino MD Unavailable [phone] Marcial Calvin MD Unavailable [phone] Reason for Referral * Consultation (Routine) - Closed Specialty Diagnoses / Procedures Referred By Sharita spencer Referred To Contact Plastic Surgery Diagnoses Basal cell carcinoma (BCC), unspecified site Ashlyn Donahue APRN [address] [id number] Phone: tel: fax: Referral ID Status Reason Start Date Expiration Date V isits Requested Visits Authorized [id number] Closed Specialty Services Required 03/29/2024 09/28/2025 1 1 Encounter Details Date Type Department Care Team (Late st Contact Info) Description 03/29/2024 [facility] [address] [place] [address] Ashlyn Donahue APRN [address] [address] Basal cell carcinoma (BCC), unspecified site (Primary [...] documented as of this encounter Care Teams Mint Wafer Depositor Relationship Specialty Start Date End Date Guillermo Dior MD [address] [facility] [place] [address] PCP - General 03/27/21 Montez Vizcaino MD 9[address] [facility] [address] [place] [address] Referring Physician Dermatology 04/19/24 Marcial Calvin MD [address] [phone] Surgeon Otolaryngology 04/19/24 documented as of this encounter
--- OUTSIDE RECORDS SUMMARY | 2025-09-03 11:37 | XMS_ITS | Clinical Summary ---
Author Organization [facility] Address [address] [place] [address] Phone Care Team Providers Care Hand Edger Name Role Phone Unavailable Primary Care Provider [...] 75+ series) 2023 COVID-19 Vaccine (1 - 2024-2 6 season) 2025 Influenza Vaccine (#1) 2025 Hepatitis B Vaccine Aged Out No longe r eligible based on patient's age to complete this topic Meningococcal B Vaccine Aged Out No l onger eligible based on patient's age to complete this topic Insurance MEDICAID [facility] DUAL ACCESS O D-SNP [place] [address]
[2025-09-03 12:08] LABS: Hematocrit 42.0 % (37.0-47.0); Hemoglobin 13.7 g/dL (12.2-16.2); Immature Granulocytes % 0.3 %; Mean Corpuscular HGB Conc 32.6 g/dL (31.8-35.4); Mean Corpuscular Hemoglobin 31.8 pg (27.0-31.2); Mean Corpuscular Volume 97.4 fl (81-99); Nucleated Red Blood Cells % 0 %; Platelet Count 148 K/mm3 (142-424); Red Blood Count 4.31 M/mm3 (4.20-5.40); Red Cell Distribution Width-SD 46.9 fL; White Blood Count 3.6 K/mm3 (4.8-10.8)
[2025-09-03 12:21] LABS: Albumin Level 4.0 g/dl (3.5-5.0); Chloride 103 mmol/L (98-107); Potassium 4.1 mmoL/L (3.5-5.1); Sodium 142 mmol/L (136-145)
[2025-09-03 12:23] LABS: Blood Urea Nitrogen 21 mg/dl (7-17); Creatinine Clearance Estimated 46 mL/min (50-200); Creatinine,Serum 0.90 mg/dl (0.52-1.04); Estimated Glomerular Filt Rate 61 ml/min (>60); GFR (African American) 73 ML/MIN (>60)
[2025-09-03 12:24] LABS: Alanine Aminotransferase 36 U/L (12-78); Albumin/Globulin Ratio 1.1 (1.1-1.8); Alkaline Phosphatase 125 U/L (38-126); Anion Gap 14.1 mEq/L (5-15); Aspartate Amino Transferase 36 U/L (14-36); Bilirubin,Total 0.5 mg/dl (0.2-1.3); Calcium 9.3 mg/dl (8.4-10.2); Carbon Dioxide 29 mmol/L (22.0-30.0); Globulin 3.7 g/dL (1.3-3.2); Glucose 163 mg/dl (74-100); Total Protein,Serum 7.7 g/dl (6.3-8.2)
[2025-09-03] MEDS: SODIUM CHLORIDE 0.9% 10ML FLUSH SYRINGE 10 ML IV (12:41)
[2025-09-03 12:46] VITALS: BP 139/66; PULSE 63; RESP 20; TEMP 36.4; O2SAT 97
[2025-09-03] MEDS: CEMIPLIMAB-RWLC 350 MG in 0.9 % SODIUM CHLORIDE 100 ML 214 MG IV (12:46)
[2025-09-03 13:04] LABS: Thyroid Stimulating Hormone 3.20 uIU/mL (0.465-4.68)
[2025-09-03 13:30] VITALS: BP 142/75; PULSE 61; RESP 20; O2SAT 97
== END 2025-09-03 23:59 | disposition home or self-care (01) ==
LOC: INF 11:34
PROVIDERS: PCP Family Medicine; Visit Provider Internal Medicine Medical Oncology
DX: C44.321 Squamous cell carcinoma of skin of nose (principal); Z79.899 Other long term (current) drug therapy; Z51.11 Encounter for antineoplastic chemotherapy
CPT/HCPCS: 80053; 84443; 85025; 96413; J9119

== ENCOUNTER 2025-09-11 08:49 | Outpatient (CLI) | payer MEDICARE, MEDICAID, SELFPAY ==
--- OUTSIDE RECORDS SUMMARY | 2025-09-11 09:16 | XMS_ITS | Clinical Summary ---
Author Organization [facility] Address [address] [place] [address] Care Team Providers Care Tester Sound Name Role Phone Guillermo Dior MD Primary Care Provider [phone] oMntez Vizcaino MD Unavailable [phone] Marcial Calvin MD Unavailable [phone] Allergies Active Allergy Reactions Criticality Noted [...] by mouth every 6 (six) hours. Under [place] law, monthly prescriptions (30 days) can be [...] (Tamiflu) 75 MG capsule 5 Active Tiotropium [place] Monohydrate (Spiriva Respimat) 2.5 MCG/ACT inhaler 0 Active HYDROcodone-kesha taminophen ([place]) 5-325 MG tablet 5 Active hydrOXYzine HCl [...] No 09/12/2024 Housing Stability Vital Sign Answer Ymron e Recorded In the last 12 months, [...] place to sleep or slept in a chcf (including now)? No 09/12/2024 Utilities Answer Date Recorded In the past 12 months has th e [employer], gas, oil, or water [employer] threatened to shut off services in your [...] Screenings 03/13/2025 [facility]-Adult SDOH Screenings 03/13/2025 09/12/2024 [id number] Vaccine ( season) 2025 10/30/2021, 04/29/2021, 04/08/2021 [facility]-Influenza Vaccine (#1) 07/15/202510/30, 09/26/2020, 07/23/2019, Additional history exists [facility]-Breast Cancer Screening Discontinued 03/17/2021, 01/27/2021, 01/27/2021 [facility]-Pneumococcal Vaccine: 50+ Years Completed 03/27/2024, 11/19/2019, 12/19/2012 [facility]-Lung Cancer Screening Discontinued 2024, 08/09/2024, 07/23/2024 HPV Vaccines Aged Out No longer eligi [...] MD on 12/24/2024 10:46 AM Lyndsey Lopez OCCUP THERAPIST, DNP IMG CT PROCEDURES Final Result * [...] Adults <6.0% Children and Adolescents <7.5% Source: [place] Diabetes Association. Standards of medical care in diabetes,2017. Diabetes Care.2017:40 (suppl 1):S1-S135. HbA1c assay performed by an ion-exchange chromatography method that is certified traceable to the DCCT. Celestina Dumas DO LAB BLOOD ORDERABLES Fin al Result [facility] [address] [place] [address] from Last 3 Months or Most Recently Relevant to Health Maintenance Additional Health Concerns Infection Onset Date Last Indicated ESBL Comment:Urine collected 04/22/2024 resulted positive for ESBL. This patient will require contact precautions indefinitely. Do not resolve this infection. 04/22/2024 MRSA 05/03/2024 05/03/2024 Insurance WELL[employer] MEDICARE PASSPORT MEDICAID [place] Advance Directives Documents on File Type Date Recorded Patient Presales Senior Specialist Expl anation Advance Directives and Livin g Will 09/12/2024 6:41 AM * Full Code (Latest Code Status on File) Date Activated Date Inactivated Comments 09/11/2024 6:45 PM 09/27/2024 5:30 PM Question Answer Comments Patient has decision-making capacity? Yes * Full Code Date Activated Date Inactivated Comments 04/21/2024 5:08 PM 05/09/2024 3:49 PM Question Answer Comments Patient has decision-making capacity? Yes Care Teams Tester Sound Relationship Specialty Start Date End Date Guillermo Dior MD [address] [place] [address] PCP - General 03/27/21 Montez Vizcaino MD [address] [address] Referring Physician Dermatology 04/19/24 Marcial Calvin MD [address] [place] [phone] Surgeon Otolaryngology 04/19/24
--- OUTSIDE RECORDS SUMMARY | 2025-09-11 09:16 | XMS_ITS | Clinical Summary ---
Author Organization [facility] Address [address] [place] [address] Phone Care Team Providers Care Toll Lineman Name Role Phone Unavailable Primary Care Provider [...] age to complete this topic Insurance MEDICAID [facility] DUAL ACCESS O D-SNP [place] [address]
--- OUTSIDE RECORDS SUMMARY | 2025-09-11 09:16 | XMS_ITS | Encounter Summary ---
Author Organization Healthcare Address [address] [place] [address] Care Team Providers Care Examining Officer Name Role Phone Guillermo Dior MD Primary Care Provider [phone] Montez Vizcaino MD Unavailable [phone] Marcial Calvin MD Unavailable [phone] Encounter Details Date Type Department Care Team (Late st Contact Info) Description 05/06/2023 [facility] [address] [place] [address] Charlotte Navarro, NEAR EAST ARCHEOLOGY PROFESSOR [address] [place], [place] [id number] Chronic obstructive pulmonary disease, unspecified COPD type [...] documented as of this encounter Care Teams Examining Officer Relationship Specialty Start Date End Date Guillermo Dior MD [address] [place] [address] PCP - General 03/27/21 Montez Vizcaino MD 9[address] [facility] [address] [place] [address] Referring Physician Dermatology 04/19/24 Marcial Calvin MD [address] [place] [phone] Surgeon Otolaryngology 04/19/24 documented as of this encounter
--- OUTSIDE RECORDS SUMMARY | 2025-09-11 09:16 | XMS_ITS ---
Author Organization [facility] Address [address] [place] [address] Care Team Providers Care Production Sanitizer Name Role Phone Guillermo Dior MD Primary Care Provider [phone] Montez Vizcaino MD Unavailable [phone] Marcial Calvin MD Unavailable [phone] Active Problems Problem Noted Date Diagnosed [...]
--- OUTSIDE RECORDS SUMMARY | 2025-09-11 09:16 | XMS_ITS | Encounter Summary ---
Author Organization Healthcare Address [address] [place] [address] Care Team Providers Care Specimen Collector Name Role Phone Guillermo Dior MD Primary Care Provider Montez Vizcaino MD Unavailable [phone] Marcial Calvin MD Unavailable [phone] Reason for Referral * Consultation (Routine) - Closed Specialty Diagnoses / Procedures Referred By Sharita spencer Referred To Contact Plastic Surgery Diagnoses Basal cell carcinoma (BCC), unspecified site Ashlyn Donahue APRN [address] [phone] Phone: tel: fax: Referral ID Status Reason Start Date Expiration Date V isits Requested Visits Authorized [id number] Closed Specialty Services Required 03/29/2024 09/28/2025 1 1 Encounter Details Date Type Department Care Team (Late st Contact Info) Description 03/29/2024 [facility] [address] [place] [address] Ashlyn Donahue APRN [address] [address] Basal cell carcinoma (BCC), unspecified site (Primary [...] documented as of this encounter Care Teams Specimen Collector Relationship Specialty Start Date End Date Guillermo Dior MD [address] [place] [address] PCP - General 03/27/21 Montez Vizcaino MD 989 [facility] [address] [place] [address] Referring Physician Dermatology 04/19/24 Marcial Calvin MD [address] [phone] Surgeon Otolaryngology 04/19/24 documented as of this encounter
[2025-09-11 12:06] LABS: Hemoglobin A1C 6.7 % (4.0-6.0)
== END 2025-09-11 23:59 | disposition home or self-care (01) ==
PROVIDERS: PCP Nurse Practitioner Family; Visit Provider Nurse Practitioner Family
DX: E11.9 Type 2 diabetes mellitus without complications (principal)
CPT/HCPCS: 36415; 83036

== ENCOUNTER 2025-10-01 11:15 | Outpatient (CLI) | payer MEDICARE, MEDICAID, SELFPAY ==
[2025-10-01 11:21] VITALS: BMI 24.0
[2025-10-01 11:31] LABS: Hematocrit 42.7 % (37.0-47.0); Hemoglobin 13.7 g/dL (12.2-16.2); Immature Granulocytes % 0 %; Mean Corpuscular HGB Conc 32.1 g/dL (31.8-35.4); Mean Corpuscular Hemoglobin 31.1 pg (27.0-31.2); Mean Corpuscular Volume 97.0 fl (81-99); Nucleated Red Blood Cells % 0 %; Platelet Count 141 K/mm3 (142-424); Red Blood Count 4.40 M/mm3 (4.20-5.40); Red Cell Distribution Width-SD 47.9 fL; White Blood Count 3.8 K/mm3 (4.8-10.8)
[2025-10-01 11:49] LABS: Alanine Aminotransferase 55 U/L (12-78); Albumin Level 4.5 g/dl (3.5-5.0); Albumin/Globulin Ratio 1.2 (1.1-1.8); Alkaline Phosphatase 145 U/L (38-126); Anion Gap 12.8 mEq/L (5-15); Aspartate Amino Transferase 46 U/L (14-36); Bilirubin,Total 0.5 mg/dl (0.2-1.3); Blood Urea Nitrogen 22 mg/dl (7-17); Calcium 9.8 mg/dl (8.4-10.2); Carbon Dioxide 28 mmol/L (22.0-30.0); Chloride 100 mmol/L (98-107); Creatinine Clearance Estimated 46 mL/min (50-200); Creatinine,Serum 0.70 mg/dl (0.52-1.04); Estimated Glomerular Filt Rate 81 ml/min (>60); GFR (African American) 98 ML/MIN (>60); Globulin 3.8 g/dL (1.3-3.2); Glucose 196 mg/dl (74-100); Potassium 3.8 mmoL/L (3.5-5.1); Sodium 137 mmol/L (136-145); Total Protein,Serum 8.3 g/dl (6.3-8.2)
[2025-10-01] MEDS: SODIUM CHLORIDE 0.9% 10ML FLUSH SYRINGE 10 ML IV (12:08)
[2025-10-01 12:18] VITALS: BP 132/68; PULSE 69; RESP 18; TEMP 36.7; O2SAT 95
[2025-10-01] MEDS: CEMIPLIMAB-RWLC 350 MG in 0.9 % SODIUM CHLORIDE 100 ML 214 MG IV (12:18)
[2025-10-01 12:19] LABS: Thyroid Stimulating Hormone 3.20 uIU/mL (0.465-4.68)
[2025-10-01 13:05] VITALS: BP 127/70; PULSE 61; RESP 18; O2SAT 96
== END 2025-10-01 23:59 | disposition home or self-care (01) ==
LOC: INF 11:17
PROVIDERS: PCP Family Medicine; Visit Provider Internal Medicine Medical Oncology
DX: C44.321 Squamous cell carcinoma of skin of nose (principal); Z79.899 Other long term (current) drug therapy; Z51.11 Encounter for antineoplastic chemotherapy
CPT/HCPCS: 80053; 84443; 85025; 96413; J9119

== ENCOUNTER 2025-10-22 13:53 | Outpatient (CLI) | payer MEDICARE, MEDICAID, SELFPAY ==
[2025-10-22 13:59] VITALS: BMI 24.0
[2025-10-22 14:22] LABS: Hematocrit 42.8 % (37.0-47.0); Hemoglobin 13.8 g/dL (12.2-16.2); Immature Granulocytes % 0.5 %; Mean Corpuscular HGB Conc 32.2 g/dL (31.8-35.4); Mean Corpuscular Hemoglobin 31.4 pg (27.0-31.2); Mean Corpuscular Volume 97.3 fl (81-99); Nucleated Red Blood Cells % 0 %; Platelet Count 179 K/mm3 (142-424); Red Blood Count 4.40 M/mm3 (4.20-5.40); Red Cell Distribution Width-SD 48.4 fL; White Blood Count 4.0 K/mm3 (4.8-10.8)
[2025-10-22 14:32] LABS: Alanine Aminotransferase 34 U/L (12-78); Albumin Level 4.5 g/dl (3.5-5.0); Albumin/Globulin Ratio 1.0 (1.1-1.8); Alkaline Phosphatase 114 U/L (38-126); Anion Gap 19.2 mEq/L (5-15); Aspartate Amino Transferase 41 U/L (14-36); Bilirubin,Total 0.7 mg/dl (0.2-1.3); Blood Urea Nitrogen 18 mg/dl (7-17); Calcium 9.5 mg/dl (8.4-10.2); Carbon Dioxide 24 mmol/L (22.0-30.0); Chloride 104 mmol/L (98-107); Creatinine Clearance Estimated 46 mL/min (50-200); Creatinine,Serum 1.00 mg/dl (0.52-1.04); Estimated Glomerular Filt Rate 54 ml/min (>60); GFR (African American) 65 ML/MIN (>60); Globulin 4.4 g/dL (1.3-3.2); Glucose 100 mg/dl (74-100); Potassium 5.2 mmoL/L (3.5-5.1); Sodium 142 mmol/L (136-145); Total Protein,Serum 8.9 g/dl (6.3-8.2)
[2025-10-22 15:00] VITALS: BP 138/72; PULSE 61; RESP 20; O2SAT 96
[2025-10-22] MEDS: CEMIPLIMAB-RWLC 350 MG in 0.9 % SODIUM CHLORIDE 100 ML 214 MG IV (15:00)
[2025-10-22] MEDS: SODIUM CHLORIDE 0.9% 10ML FLUSH SYRINGE 10 ML IV (15:11)
[2025-10-22 15:26] LABS: Thyroid Stimulating Hormone 4.31 uIU/mL (0.465-4.68)
[2025-10-22 15:35] VITALS: BP 134/69; PULSE 62
== END 2025-10-22 23:59 | disposition home or self-care (01) ==
LOC: INF 13:55
PROVIDERS: PCP Family Medicine; Visit Provider Internal Medicine Medical Oncology
DX: C44.321 Squamous cell carcinoma of skin of nose (principal); Z51.11 Encounter for antineoplastic chemotherapy
CPT/HCPCS: 80053; 84443; 85025; 96413; J9119

== ENCOUNTER 2025-11-12 12:21 | Outpatient (CLI) | payer MEDICARE, MEDICAID, SELFPAY ==
[2025-11-12 12:24] VITALS: BMI 24.0
--- OUTSIDE RECORDS SUMMARY | 2025-11-12 12:24 | XMS_ITS | Clinical Summary ---
Author Organization [facility] Address [address] [place] [address] Care Team Providers Care Veterans Contact Representative Name Role Phone Guillermo Dior MD Primary Care Provider [phone] Montez Vizcaino MD Unavailable [phone] Marcial Calvin MD Unavailable [phone] Allergies Active Allergy Reactions Criticality Noted [...] by mouth every 6 (six) hours. Under [place] law, monthly prescriptions (30 days) can be [...] (Tamiflu) 75 MG capsule 5 Active Tiotropium [place] Monohydrate (Spiriva Respimat) 2.5 MCG/ACT inhaler 0 Active HYDROcodone-kesha taminophen ([place]) 5-325 MG tablet 5 Active hydrOXYzine HCl [...] place to sleep or slept in a long-term (including now)? No 09/12/2024 Utilities Answer Date Recorded In the past 12 months has th e [employer], gas, oil, or water [employer] threatened to shut off services in your [...] SDOH Screenings 1948 Diabetes: Dental Exam 1958 [facility]- SDOH Screenings 1966 [facility]-Adult SDOH Screenings 1966 [facility]-DTaP,Tdap,and Td Vaccines (1 - Tdap) 1967 [facility]-Zoster Vaccines (1 of 2) 1967 [facility]-Hepatitis A Vaccines (2 of 2 - Risk 2-dose series) 12/20/2018 06/19/2018 [facility]-RSV Vaccine: 60+ Years or (1 - 1-dose 75+ series) 2023 [facility]-Diabetes: Hemoglobin A1C 07/21/2024 04/21/2024, 08/05/2018 [id number] Vaccine ( season) 2025 10/30/2021, 04/29/2021, 04/08/2021 [facility]-Influenza Vaccine (#1) 07/15/202510/30, 09/26/2020, 07/23/2019, Additional history exists [facility]-Breast Cancer Screening Discontinued 03/17/2021, 01/27/2021, 01/27/2021 [facility]-Pneumococcal Vaccine: 50+ Years Completed 03/27/2024, 11/19/2019, 12/19/2012 [facility]-Lung Cancer Screening Discontinued 2024, 08/09/2024, 07/23/2024 HPV Vaccines (No Doses Required) Completed [facility]-HIB Vaccines Aged Out No longer e [...] MD on 12/24/2024 10:46 AM Lyndsey Lopez ASSOCIATE AUTOMATION ENGINEER, DNP IMG CT PROCEDURES Final Result * [...] Adults <6.0% Children and Adolescents <7.5% Source: [place] Diabetes [employer]. Standards of medical care in diabetes,2017. Diabetes Care.2017:40 (suppl 1):S1-S135. HbA1c assay performed by an ion-exchange chromatography method that is certified traceable to the DCCT. Celestina Dumas DO LAB BLOOD ORDERABLES Fin al Result [facility] [address] [place] [id number] from Last 3 Months or Most Recently Relevant to Health Maintenance Additional Health Concerns Infection Onset Date Last Indicated ESBL Comment:Urine collected 04/22/2024 resulted positive for ESBL. This patient will require contact precautions indefinitely. Do not resolve this infection. 04/22/2024 MRSA 05/03/2024 05/03/2024 Insurance WELLCARE MEDICARE PASSPORT MEDICAID [place] Advance Directives Documents on File Type Date Recorded Patient Blue Leather Setter Expl anation Advance Directives and Livin g Will 09/12/2024 6:41 AM * Full Code (Latest Code Status on File) Date Activated Date Inactivated Comments 09/11/2024 6:45 PM 09/27/2024 5:30 PM Question Answer Comments Patient has decision-making capacity? Yes * Full Code Date Activated Date Inactivated Comments 04/21/2024 5:08 PM 05/09/2024 3:49 PM Question Answer Comments Patient has decision-making capacity? Yes Care Teams Veterans Contact Representative Relationship Specialty [place] [address] PCP - General 03/27/21 Montez Vizcaino MD [address] [address] Referring Physician Dermatology 04/19/24 Marcial Calvin MD [address] [place] [phone] Surgeon Otolaryngology 04/19/24
--- OUTSIDE RECORDS SUMMARY | 2025-11-12 12:24 | XMS_ITS ---
Author Organization [facility] Address [address] [place] [address] Care Team Providers Care Cardiac Care Unit Nurse Name Role Phone Guillermo Dior MD Primary Care Provider [phone] Montez Vizcaino MD Unavailable [phone] Marcial Calvin MD Unavailable [phone] Active Problems Problem Noted Date Diagnosed [...] Episodes * SBRT: Right LungOverview* First Treatment Date:09/20/2024 Last Treatment Date:09/26/2024 Intent:Control Episode Provider: Intended Treatment Radiotherapy to Right Lung Treatment Courses* Course C1 09/20/2024 - 09/26/2024 [...]
--- OUTSIDE RECORDS SUMMARY | 2025-11-12 12:24 | XMS_ITS | Encounter Summary ---
Author Organization Healthcare Address [address] [place] [address] Care Team Providers Care Founder & Ceo Name Role Phone Guillermo Dior MD Primary Care Provider [phone] Montez Vizcaino MD Unavailable [phone] Marcial Calvin MD Unavailable [phone] Reason for Referral * Consultation (Routine) - Closed Specialty Diagnoses / Procedures Referred By Sharita spencer Referred To Contact Plastic Surgery Diagnoses Basal cell carcinoma (BCC), unspecified site Ashlyn Donahue APRN [address] [phone] Phone: tel: fax: Referral ID Status Reason Start Date Expiration Date V isits Requested Visits Authorized [id number] Closed Specialty Services Required 03/29/2024 09/28/2025 1 1 Encounter Details Date Type Department Care Team (Late st Contact Info) Description 03/29/2024 [facility] [address] [place] [address] Ashlyn Donahue APRN [address] [address] Basal cell carcinoma (BCC), unspecified site (Primary [...] documented as of this encounter Care Teams Founder & Ceo Relationship Specialty [place] [address] PCP - General 03/27/21 Montez Vizcaino MD [address] [facility] [address] [place] [address] Referring Physician Dermatology 04/19/24 Marcial Calvin MD [address] [place] [address] [phone] Surgeon Otolaryngology 04/19/24 documented as of this encounter
--- OUTSIDE RECORDS SUMMARY | 2025-11-12 12:24 | XMS_ITS | Encounter Summary ---
Author Organization Healthcare Address [address] [place] [address] Care Team Providers Care Matrix Bath Operator Name Role Phone Guillermo Dior MD Primary Care Provider [phone] Montez Vizcaino MD Unavailable [phone] Marcial Calvin MD Unavailable [phone] Encounter Details Date Type Department Care Team (Late st Contact Info) Description 05/06/2023 [facility] [address] [place] [address] Charlotte Navarro, LIVESTOCK SHOWMAN [address] [place] [address] Chronic obstructive pulmonary disease, unspecified COPD type [...] documented as of this encounter Care Teams Matrix Bath Operator Relationship Specialty Start [place] [address] PCP - General 03/27/21 Montez Vizcaino MD [address] [address] Referring Physician Dermatology 04/19/24 Marcial Calvin MD [address] [phone] Surgeon Otolaryngology 04/19/24 documented as of this encounter
--- OUTSIDE RECORDS SUMMARY | 2025-11-12 12:24 | XMS_ITS | Clinical Summary ---
Author Organization [facility] Address [address] [place] [address] Phone Care Team Providers Care Automatic Head Sawyer Name Role Phone Unavailable Primary Care Provider [...] age to complete this topic Insurance MEDICAID [facility] DUAL ACCESS O D-SNP [place] [address]
[2025-11-12 12:44] LABS: Hematocrit 42.9 % (37.0-47.0); Hemoglobin 13.9 g/dL (12.2-16.2); Immature Granulocytes % 0.7 %; Mean Corpuscular HGB Conc 32.4 g/dL (31.8-35.4); Mean Corpuscular Hemoglobin 31.9 pg (27.0-31.2); Mean Corpuscular Volume 98.4 fl (81-99); Nucleated Red Blood Cells % 0 %; Platelet Count 159 K/mm3 (142-424); Red Blood Count 4.36 M/mm3 (4.20-5.40); Red Cell Distribution Width-SD 48.8 fL; White Blood Count 4.2 K/mm3 (4.8-10.8)
[2025-11-12 12:47] LABS: Albumin Level 4.1 g/dl (3.5-5.0); Chloride 108 mmol/L (98-107); Potassium 4.3 mmoL/L (3.5-5.1); Sodium 142 mmol/L (136-145)
[2025-11-12 12:50] LABS: Alanine Aminotransferase 21 U/L (12-78); Albumin/Globulin Ratio 1.3 (1.1-1.8); Alkaline Phosphatase 97 U/L (38-126); Anion Gap 11.3 mEq/L (5-15); Aspartate Amino Transferase 33 U/L (14-36); Bilirubin,Total 0.5 mg/dl (0.2-1.3); Blood Urea Nitrogen 16 mg/dl (7-17); Calcium 9.7 mg/dl (8.4-10.2); Carbon Dioxide 27 mmol/L (22.0-30.0); Creatinine Clearance Estimated 46 mL/min (50-200); Creatinine,Serum 0.80 mg/dl (0.52-1.04); Estimated Glomerular Filt Rate 70 ml/min (>60); GFR (African American) 84 ML/MIN (>60); Globulin 3.1 g/dL (1.3-3.2); Glucose 176 mg/dl (74-100); Total Protein,Serum 7.2 g/dl (6.3-8.2)
[2025-11-12] MEDS: CEMIPLIMAB-RWLC 350 MG in 0.9 % SODIUM CHLORIDE 100 ML 214 MG IV (13:22)
[2025-11-12 13:25] VITALS: BP 118/61; PULSE 62
[2025-11-12 14:00] VITALS: BP 124/56; PULSE 58; RESP 20; O2SAT 98
[2025-11-12] MEDS: SODIUM CHLORIDE 0.9% 10ML FLUSH SYRINGE 10 ML IV (14:08)
== END 2025-11-12 23:59 | disposition home or self-care (01) ==
LOC: INF 12:22
PROVIDERS: PCP Family Medicine; Visit Provider Internal Medicine Medical Oncology
DX: C44.321 Squamous cell carcinoma of skin of nose (principal); Z51.11 Encounter for antineoplastic chemotherapy
CPT/HCPCS: 80053; 85025; 96413; J9119